=== PATIENT | female | born 1985 | race Hispanic/Latino ===

== ENCOUNTER 2022-06-04 16:06 | Emergency (ER) | payer SELFPAY ==
--- OUTSIDE RECORDS SUMMARY | 2022-06-04 16:11 | XMS REPORT | Continuity of Care Document ---
:1985 Author Organization [facility] t Address [address] [place] [address] Care Team Providers Name Role Phone Pcp, Patient Does Not Have A Primary Care Physician [id number] CARLOZ ESTRADA Attending Clinician Unavailable Paz Garcia Attending Clinician Carloz Jade Attending Clinician PAZ RODRIGUEZ Attending Clinician Unavailable Provider, Abel Temp Attending Clinician Unavailable Doctor Unassigned, [place] Attending Clinician Unavailable Lab, [facility] I Attending Clinician Unavailable Velma Akers Attending Clinician VELMA BAILEY Attending Clinician Unavailable Visit, Abel Nurse Attending Clinician Unavailable Sasha Carpentre Attending Clinician Payers Payer Name Policy Type Policy Number Effective Date Expiration Date S ource Problems Condition Condition Condition Status Onset Resolution Last Treating Co mments Source Name Details Category Date Date Treatment Clinician Date Elevated Elevated Disease Active Unive rs blood blood 5-19 ity of pressure pressure 00:00: [place] reading reading 00 Medical without without Branch diagnosis diagnosis of of hypertensi hypertensi on on Depo-Prove Depo-Prove Disease Active U nivers ra ra 5-14 [place] status ra[place] status 00 Me dical Branch Bacterial Bacterial Disease Active Uni vers vaginosis vaginosis 5-14 ity of 00:00: [place] [facility] Patient is Patient is Disease Active U nivers a a 3-20 [place] breast-fee breast-fee 00 Me dicsalazar chu Branch mother mother Encounter Encounter Disease Active Uni vers for for 3-20 ity of initial initial 00:00: [place] prescripti prescripti 00 Me dical on of on of Branch intrauteri intrauteri ne ne contracept contracept raul device raul device (IUD) (IUD) Patient is Patient is Disease Active 2018- U nivers a a 3-20 [place] breast-fee breast-fee 00 Me dical kimberley Strong mother mother Screening Screening Disease Active Uni vers examinatio examinatio 3-20 it y of n for STD n for STD [place] (sexually (sexually 00 Medi kelley transmitte transmitte Br anch d disease) d disease) Vaginal Vaginal Disease Active 2016-08 Univers irritation irritation 1-14 it y of 00:00: [place] [facility] Well woman Well woman Disease Active 2016-08 U nivers exam exam 1-14 ity of 00:00: [place] [facility] Encounter Encounter Disease Active 2016-08 Uni vers for for 1-14 it[place] of contrace[place]pt [place] raul 00 Medical management management Br anch , , unspecifie unspecifie d type d type Encounter Encounter Disease Active 2016-08 Uni vers for for 1-14 it[place] of contracept [place]pt [place] raul 00 Medical management management Br anch , , unspecifie unspecifie d type d type BMI BMI Disease Active Univers 26.0-26.9, 26.0-26.9, 9-25 it y of adult adult 00:00: [place] [facility] BMI BMI Disease Active Univers 26.0-26.9, 26.0-26.9, 9-25 it y of adult adult 00:00: [address] Obesity, Obesity, Disease Active Unive rs unspecifie unspecifie 8- it y of d d 00:00: [place] classifica classifica 00 Me dical tion, tion, Branch unspecifie unspecifie d obesity d obesity type, type, unspecifie unspecifie d whether d whether serious serious comorbidit comorbidit y present y present Encounter Encounter Disease Active Uni vers for for 02-10 ity of surveillan surveillan [place] ce of ce of Medical injectable injectable Br anch contracept contracept raul raul Allergies, Adverse Reactions, Alerts Allergy Allergy Status Severity Reaction(s) Onset Inactive Treating Comm ents Source Name Type Date Date Clinician NO KNOWN Drug Active Univers ALLERGIE Class ity of [facility] Social History Social Habit Start Date Stop Date Quantity Comments Source Exposure to 2022-05-11 2022-05-21 Not sure [facility] SARS-CoV-2 00:00:00 09:30:00 [facility] (event) [place] Alcohol intake 2022-05-21 2022-05-21 Ex-drinker [facility] 00:00:00 00:00:00 (finding) [facility] Tobacco use and 2014-06-12 2014-06-12 Smokeless tobacco Un iversity of exposure 00:00:00 00:00:00 non-user [facility] History of 2014-03-15 Cigarette [facility] use [facility]:00:00 [facility] Alcohol Comment 2013-03-22 2013-03-22 socially only Univer sity of 00:00:00 00:00:00 [facility] Sex [birth year] At [birth year] Universit y of 00:00:00 00:00:00 [facility] Smoking Status Start Date Stop Date Source Ex-smoker 2014-06-12 00:00:00 2014-06-12 00:00:00 [facility] Medications Ordered Filled Start Stop Current Ordering Indication Dosage Frequency Signature Comments Components Source Medication Medication Date Date Medication? Clinician (SIG) Name Name No known 2021-08 No No known Unive rs medications 0-07 medication it y of 12:04: [address] No known 2021-08 No No known Unive rs medications 0-07 medication it y of 12:04: [address] No known 2021-08 No No known Unive rs medications 0-07 medication it y of 12:04: [address] No known 2021-08 No No known Unive rs medications 0-07 medication it y of 12:04: s [place] [id number] Medical Branch No known 2021- No No known Unive rs medications 0-07 medication it y of 12:04: s [place] [id number] Medical Branch No known 2021-08 No No known Unive rs medications 0-07 medication it y of 12:04: s [place] [id number] Medical [place] No known No No known Unive rs medications 5-19 medication it y of 15:04: s [place] [id number] Medical Branch medroxyPROG 2020-0 2020- No [id number] 150mg Univers ESTERone 5-14 -15 ity of (DEPO-PROVE 15:00: 14:59 [place] RA) 00 :00 Medical injection Branch 150 mg medroxyPROG 2020-0 2020- No [id number] 150mg 150 mg, Univers ESTERone 5-14 -15 Intramuscu ity of (DEPO-PROVE 15:00: 14:59 lar, [place] RA) 00 :00 [id number], Medical injection 4 doses, Branch 150 mg First dose on Kristin 12/27/19 at 1000, Last dose on Kristin 09/04/20 at 1000, Routine medroxyPROG 2020-0 2020- No [id number] 150mg Univers ESTERone 5-14 -15 ity of (DEPO-PROVE 15:00: 14:59 [place] RA) 00 :00 Medical injection Branch 150 mg medroxyPROG 2020-0 2020- No [id number] 150mg 150 mg, Univers ESTERone 5-14 -15 Intramuscu ity of (DEPO-PROVE 15:00: 14:59 lar, [place] RA) 00 :00 [id number], Medical injection 4 doses, Branch 150 mg First dose on Kristin 12/27/19 at 1000, Last dose on Kristin 09/04/20 at 1000, Routine medroxyPROG 2020-0 2020- No [id number] 150mg Univers ESTERone 5-14 -15 ity of (DEPO-PROVE 15:00: 14:59 [place] RA) 00 :00 Medical injection Branch 150 mg medroxyPROG 2020-0 2020- No [id number] 150mg 150 mg, Univers ESTERone 5-14 -15 Intramuscu ity of (DEPO-PROVE 15:00: 14:59 lar, [place] RA) 00 :00 [id number], Medical injection 4 doses, Branch 150 mg First dose on Kristin 12/27/19 at 1000, Last dose on Kristin 09/04/20 at 1000, Routine medroxyPROG 2019-2020- No [id number] 150mg Univers ESTERone 12-26 ity of (DEPO-PROVE 15:00: 14:59 [place] RA) 00 :00 Medical injection Branch 150 mg medroxyPROG 2019-2020- No [id number] 150mg 150 mg, Univers ESTERone 12-26 Intramuscu ity of (DEPO-PROVE 15:00: 14:59 lar, [place] RA) 00 :00 [id number], Medical injection 4 doses, Branch 150 mg First dose on Kristin 12/27/19 at 1000, Last dose on Kristin 09/04/20 at 1000, Routine medroxyPROG 2019-2020- No [id number] 150mg Univers ESTERone 12-26 ity of (DEPO-PROVE 15:00: 14:59 [place] RA) 00 :00 Medical injection Branch 150 mg medroxyPROG No [id number] 150mg 150 mg, Univers ESTERone 12-26 Intramuscu ity of (DEPO-PROVE 15:00: 14:59 lar, [place] RA) 00 :00 [id number], Medical injection 4 doses, Branch 150 mg First dose on Kristin 12/27/19 at 1000, Last dose on Kristin 09/04/20 at 1000, Routine medroxyPROG 2019-2020- No [id number] 150mg Univers ESTERone 12-26 ity of (DEPO-PROVE 15:00: 19:16 [place] RA) 00 :00 Medical injection Branch 150 mg medroxyPROG No [id number] 150mg 150 mg, Univers ESTERone 12-26 Intramuscu ity of (DEPO-PROVE 15:00: 19:16 lar, [place] RA) 00 :00 [id number], Medical injection 4 doses, Branch 150 mg First dose on Kristin 12/27/19 at 1000, Last dose on Kristin 09/04/20 at 1000, Routine metroNIDAZO 2019- No [id number] 500mg Take 1 Univers LE 500 mg 5-14 05-22 tablet by ity of tablet 00:00: 04:59 mouth 2 [place] 00 :00 (two) Medical times [place] daily for 7 days. metroNIDAZO 2020-0 2020- No [id number] 500mg Take 1 Univers LE 500 mg 5-14 -22 tablet by ity of tablet 00:00: 04:59 mouth 2 [place] 00 :00 (two) Medical times [place] daily for 7 days. ondansetron 2019-0 2019- No 4mg 4 mg, Slow Univers (ZOFRAN 11-29 IV Push, ity of (PF)) 07:15: 06:14 ONCE, 1 [place] injection 4 00 :00 dose, Fri Med ical mg 11/30/19 at Branch 0215, MARYANN famotidine 2019-2019- No 20mg 20 mg, IV U nivers 20 mg in NS 11-29 Piggyback, i ty of 50 ml 07:15: 06:38 ONCE, 1 [place] (PEPCID) 20 00 :00 dose, Fri Med ical mg/50 mL 11/30/19 at [facility] h Piggyback 0215, 50 20 mg mL maalox:diph 2019-2019- No 15mL 15 mL, Uni vers enhydrAMINE 11-29 Oral ity of :lidocaine 06:00: 04:59 [place] 2 % viscous 00 :00 Swallow), Med ical 1:1:1 ONCE, 1 Branch (FIRST-MOUT dose, Fri HWASH BLM) 11/30/19 at oral 0100, suspension Routine 15 mL NaCl 0.9% 2020- No 1000mL at 999 Uni vers (NS) bolus 11-29 mL/hr, ity of infusion 05:15: 06:38 1,000 mL, [place] as 1,000 mL 00 :00 IV Medical Infusion, Branch ONCE, 1 dose, 11/30/19 at 0015, STAT morpHINE 2019-0 2019- No 4mg 4 mg, Slow Un thor injection 4 11-29 IV Push, ity of mg 05:15: 04:18 ONCE, 1 [place] 00 :00 dose, Fri Medical 11/30/19 at Branch 0015, Routine ondansetron 2019-0 2020- No 4mg 4 mg, Slow Univers (ZOFRAN 4-17 04-17 IV Push, ity of (PF)) 05:15: 04:18 ONCE, 1 [place] injection 4 00 :00 dose, Fri Med ical mg 11/30/19 at Branch 0015, MARYANN famotidine 2020-0 Yes [id number] 40mg Take 1 Un thor (PEPCID) 40 4-17 tablet by ity of mg tablet 00:00: mouth [place] 00 daily. Medical Branch ondansetron 2020-0 Yes [id number] 4mg Take 1 U nivers (ZOFRAN 4-17 tablet by ity of ODT) 4 mg 00:00: mouth [place] disintegrat 00 every 8 Medic al ing tablet (eight) Branch hours as needed for Nausea and Vomiting (N/V). famotidine 2020-0 2020- No [id number] 40mg Take 1 U nivers (PEPCID) 40 4-17 05-14 tablet by it y of mg tablet 00:00: 00:00 mouth [place] 00 :00 daily. Medical Branch ondansetron 2020-0 2020- No [id number] 4mg Take 1 Univers (ZOFRAN 4-17 05-14 tablet by ity of ODT) 4 mg 00:00: 00:00 mouth [place] disintegrat 00 :00 every 8 Medic al ing tablet (eight) Branch hours as needed for Nausea and Vomiting (N/V). famotidine 2020-0 2020- No [id number] 40mg Take 1 U nivers (PEPCID) 40 4-17 05-14 tablet by it y of mg tablet 00:00: 00:00 mouth [place] 00 :00 daily. Medical Branch ondansetron 2020-0 2020- No [id number] 4mg Take 1 Univers (ZOFRAN 4-17 05-14 tablet by ity of ODT) 4 mg 00:00: 00:00 mouth [place] disintegrat 00 :00 every 8 Medic al ing tablet (eight) Branch hours as needed for Nausea and Vomiting (N/V). medroxyPROG 2020-0 2020- No 150mg Univ ers ESTERone 10-03- ity of (DEPO-PROVE 17:30: 16:29 [place] RA) 00 :00 Medical injection Branch 150 mg medroxyPROG 2020-0 2020- No 150mg 150 mg, U nivers ESTERone 10-03 Intramuscu ity of (DEPO-PROVE 17:30: 16:29 lar, ONCE, [place] RA) 00 :00 1 dose, Medical injection Wed Branch 150 mg 10/03/19 at 1130, Routine medroxyPROG 2020- No [id number] 150mg Univers ESTERone 11-01 ity of (DEPO-PROVE 16:30: 17:29 [place] RA) 00 :00 Medical injection Branch 150 mg medroxyPROG 2018- 2020- No [id number] 150mg 150 mg, Univers ESTERone 11-01 Intramuscu ity of (DEPO-PROVE 16:30: 17:29 lar, [place] RA) 00 :00 [id number], Medical injection 4 doses, Branch 150 mg First dose on Tue11/01/18 at 1130, Last dose on Tue07/11/19 at 1130, Routine medroxyPROG 2018- 2020- No [id number] 150mg Univers ESTERone 11-01 ity of (DEPO-PROVE 16:30: 17:29 [place] RA) 00 :00 Medical injection Branch 150 mg medroxyPROG 2019- No [id number] 150mg 150 mg, Univers ESTERone 11-01 Intramuscu ity of (DEPO-PROVE 16:30: 17:29 lar, [place] RA) 00 :00 [id number], Medical injection 4 doses, Branch 150 mg First dose on Tue11/01/18 at 1130, Last dose on Tue07/11/19 at 1130, Routine No known No Univers medications ity of [facility] No known No Univers medications ity of [facility] No known No Univers medications ity of [facility] No known No Univers medications ity of [facility] Immunizations Ordered Filled Immunization Date Status Comments [facility] e Immunization Name Name Influenza Virus 2020-06-17 Completed Universit y of Vaccine Quad .5 mL 00:00:00 [place] Medical IM 6+ MO Branch Influenza Virus 2020-06-17 Completed Universit y of Vaccine Quad .5 mL 00:00:00 [place] Medical IM 6+ MO Branch Influenza Virus 2020-06-17 Completed Universit y of Vaccine Quad .5 mL 00:00:00 [place] Medical IM 6+ MO Branch Influenza Virus 2020-06-17 Completed Universit y of Vaccine Quad .5 mL 00:00:00 [facility] IM 6+ MO Branch Influenza Virus 2020-06-17 Completed Universit y of Vaccine Quad .5 mL 00:00:00 [place] Medical IM 6+ MO Branch Influenza Virus 2020-06-17 Completed Universit y of Vaccine Quad .5 mL 00:00:00 [place] Medical IM 6+ MO Branch Influenza Virus 2020-06-17 Completed Universit y of Vaccine Quad .5 mL 00:00:00 [place] Medical IM 6+ MO Branch Influenza Virus 2020-06-17 Completed Universit y of Vaccine Quad .5 mL 00:00:00 [place] Medical IM 6+ MO Branch Influenza Virus 2020-06-17 Completed Universit y of Vaccine Quad .5 mL 00:00:00 [place] Medical IM 6+ MO Branch Influenza Virus 2020-06-17 Completed Universit y of Vaccine Quad .5 mL 00:00:00 [place] Medical IM 6+ MO Branch Influenza Virus 2020-06-17 Completed Universit y of Vaccine Quad .5 mL 00:00:00 [place] Medical IM 6+ MO Branch Influenza Virus 2020-06-17 Completed Universit y of Vaccine Quad .5 mL 00:00:00 [place] Medical IM 6+ MO Branch Influenza Virus 2020-06-17 Completed Universit y of Vaccine Quad .5 mL 00:00:00 [place] Medical IM 6+ MO Branch Influenza Virus 2018-06-28 Completed Universit y of Vaccine Quad .5 mL 00:00:00 [place] [facility] IM 6+ MO Branch TDAP (ADACEL) 2018-06-28 Completed University of VACCINE 00:00:00 [facility] Influenza Virus 2018-06-28 Completed Universit y of Vaccine Quad .5 mL 00:00:00 [place] Medical IM 6+ MO Branch TDAP (ADACEL) 2018-06-28 Completed University of VACCINE 00:00:00 [place] [facility] [place] Influenza Virus 2018-06-28 Completed Universit y of Vaccine Quad .5 mL 00:00:00 [place] Medical IM 6+ MO Branch TDAP (ADACEL) 2018-06-28 Completed University of VACCINE 00:00:00 [place] [facility] Influenza Virus 2018-06-28 Completed Universit y of Vaccine Quad .5 mL 00:00:00 [place] [facility] IM 6+ MO Branch TDAP (ADACEL) 2018-06-28 Completed University of VACCINE 00:00:00 [place] [facility] [place] Influenza Virus 2018-06-28 Completed Universit y of Vaccine Quad .5 mL 00:00:00 [place] [facility] IM 6+ MO Branch TDAP (ADACEL) 2018-06-28 Completed University of VACCINE 00:00:00 [facility] Influenza Virus 2018-06-28 Completed Universit y of Vaccine Quad .5 mL 00:00:00 [place] [facility] IM 6+ MO Branch TDAP (ADACEL) 2018-06-28 Completed University of VACCINE 00:00:00 [facility] Influenza Virus 2018-06-28 Completed Universit y of Vaccine Quad .5 mL 00:00:00 [place] [facility] IM 6+ MO Branch TDAP (ADACEL) 2018-06-28 Completed University of VACCINE 00:00:00 [facility] Influenza Virus 2018-06-28 Completed Universit y of Vaccine Quad .5 mL 00:00:00 [place] [facility] IM 6+ MO Branch TDAP (ADACEL) 2018-06-28 Completed University of VACCINE 00:00:00 [facility] Influenza Virus 2018-06-28 Completed Universit y of Vaccine Quad .5 mL 00:00:00 [place] [facility] IM 6+ MO Branch TDAP (ADACEL) 2018-06-28 Completed University of VACCINE 00:00:00 [facility] Influenza Virus 2018-06-28 Completed Universit y of Vaccine Quad .5 mL 00:00:00 [place] [facility] IM 6+ MO Branch TDAP (ADACEL) 2018-06-28 Completed University of VACCINE 00:00:00 [facility] Influenza Virus 2018-06-28 Completed Universit y of Vaccine Quad .5 mL 00:00:00 [place] [facility] IM 6+ MO Branch TDAP (ADACEL) 2018-06-28 Completed University of VACCINE 00:00:00 [facility] Influenza Virus 2018-06-28 Completed Universit y of Vaccine Quad .5 mL 00:00:00 [place] [facility] IM 6+ MO Branch TDAP (ADACEL) 2018-06-28 Completed University of VACCINE 00:00:00 [facility] Influenza Virus 2018-06-28 Completed Universit y of Vaccine Quad .5 mL 00:00:00 [place] [facility] IM 6+ MO Branch TDAP (ADACEL) 2018-06-28 Completed University of VACCINE 00:00:00 [facility] Influenza Virus 2018-06-28 Completed Universit y of Vaccine Quad .5 mL 00:00:00 [place] [facility] IM 6+ MO Branch TDAP (ADACEL) 2018-06-28 Completed University of VACCINE 00:00:00 [facility] Influenza Virus 2018-06-28 Completed Universit y of Vaccine Quad .5 mL 00:00:00 [place] [facility] IM 6+ MO Branch TDAP (ADACEL) 2018-06-28 Completed University of VACCINE 00:00:00 [facility] Influenza Virus 2018-06-28 Completed Universit y of Vaccine Quad .5 mL 00:00:00 [place] [facility] IM 6+ MO Branch TDAP (ADACEL) 2018-06-28 Completed University of VACCINE 00:00:00 [facility] Influenza Virus 2018-06-28 Completed Universit y of Vaccine Quad .5 mL 00:00:00 [place] [facility] IM 6+ MO Branch TDAP (ADACEL) 2018-06-28 Completed University of VACCINE 00:00:00 [facility] Influenza Virus 2018-06-28 Completed Universit y of Vaccine Quad .5 mL 00:00:00 [place] [facility] IM 6+ MO Branch TDAP (ADACEL) 2018-06-28 Completed University of VACCINE 00:00:00 [facility] Influenza Virus 2018-06-28 Completed Universit y of Vaccine Quad .5 mL 00:00:00 [place] [facility] IM 6+ MO Branch TDAP (ADACEL) 2018-06-28 Completed University of VACCINE 00:00:00 [facility] Influenza Virus 2018-06-28 Completed Universit y of Vaccine Quad .5 mL 00:00:00 [place] [facility] IM 6+ MO Branch TDAP (ADACEL) 2018-06-28 Completed University of VACCINE 00:00:00 [facility] Influenza Virus 2018-06-28 Completed Universit y of Vaccine Quad .5 mL 00:00:00 [place] [facility] IM 6+ MO Branch TDAP (ADACEL) 2018-06-28 Completed University of VACCINE 00:00:00 [facility] Tdap 2017-03-01 Completed University of 00:00:00 [facility] Tdap 2017-03-01 Completed University of 00:00:00 [facility] Tdap 2017-03-01 Completed University of 00:00:00 [facility] Branch TDAP 2017-03-01 Completed University of 00:00:00 [facility] Branch TDAP 2017-03-01 Completed University of 00:00:00 [facility] Branch TDAP 2017-03-01 Completed University of 00:00:00 [facility] Branch TDAP 2017-03-01 Completed University of 00:00:00 [facility] Branch TDAP 2017-03-01 Completed University of 00:00:00 [place] [facility] TDAP 2017-03-01 Completed University of 00:00:00 [place] [facility] TDAP 2017-03-01 Completed University of 00:00:00 [place] [facility] TDAP 2017-03-01 Completed University of 00:00:00 [place] [facility] TDAP 2017-03-01 Completed University of 00:00:00 [place] [facility] TDAP 2017-03-01 Completed University of 00:00:00 [place] [facility] TDAP 2017-03-01 Completed University of 00:00:00 [place] [facility] TDAP 2017-03-01 Completed University of 00:00:00 [place] [facility] TDAP 2017-03-01 Completed University of 00:00:00 [place] [facility] TDAP 2017-03-01 Completed University of 00:00:00 [place] [facility] Tdap 2017-03-01 Completed University of 00:00:00 [place] [facility] TDAP 2017-03-01 Completed University of 00:00:00 [place] [facility] Tdap 2017-03-01 Completed University of 00:00:00 [place] [facility] Tdap 2017-03-01 Completed University of 00:00:00 [place] [facility] Tdap 2014-10-16 Completed University of 00:00:00 [place] [facility] Tdap 2014-10-16 Completed University of 00:00:00 [place] [facility] Tdap 2014-10-16 Completed University of 00:00:00 [place] [facility] TDAP 2014-10-16 Completed University of 00:00:00 [place] [facility] TDAP 2014-10-16 Completed University of 00:00:00 [place] [facility] TDAP 2014-10-16 Completed University of 00:00:00 [place] [facility] TDAP 2014-10-16 Completed University of 00:00:00 [place] [facility] TDAP 2014-10-16 Completed University of 00:00:00 [place] [facility] TDAP 2014-10-16 Completed University of 00:00:00 [place] [facility] TDAP 2014-10-16 Completed University of 00:00:00 [place] [facility] TDAP 2014-10-16 Completed University of 00:00:00 [place] [facility] TDAP 2014-10-16 Completed University of 00:00:00 [place] [facility] TDAP 2014-10-16 Completed University of 00:00:00 [place] [facility] TDAP 2014-10-16 Completed University of 00:00:00 [place] [facility] TDAP 2014-10-16 Completed University of 00:00:00 [place] [facility] TDAP 2014-10-16 Completed University of 00:00:00 [place] [facility] Tdap 2014-10-16 Completed University of 00:00:00 [place] [facility] TDAP 2014-10-16 Completed University of 00:00:00 [place] [facility] TDAP 2014-10-16 Completed University of 00:00:00 [facility] Branch Tdap 2014-10-16 Completed University of 00:00:00 [facility] Branch Tdap 2014-10-16 Completed University of 00:00:00 [facility] Influenza Virus 2014-06-19 Completed Universit y of Vaccine Quad IM 00:00:00 [place] Med ical Multi-dose 6+ MO Branch Influenza Virus 2014-06-19 Completed Universit y of Vaccine Quad IM 00:00:00 [place] Med ical Multi-dose 6+ MO Branch Influenza Virus 2014-06-19 Completed Universit y of Vaccine Quad IM 00:00:00 [place] Med ical Multi-dose 6+ MO Branch Influenza Virus 2014-06-19 Completed Universit y of Vaccine Quad IM 00:00:00 [place] Med ical Multi-dose 6+ MO Branch Influenza Virus 2014-06-19 Completed Universit y of Vaccine Quad IM 00:00:00 [place] Med ical Multi-dose 6+ MO Branch Influenza Virus 2014-06-19 Completed Universit y of Vaccine Quad IM 00:00:00 [place] Med ical Multi-dose 6+ MO Branch Influenza Virus 2014-06-19 Completed Universit y of Vaccine Quad IM 00:00:00 [place] Med ical Multi-dose 6+ MO Branch Influenza Virus 2014-06-19 Completed Universit y of Vaccine Quad IM 00:00:00 [place] Med ical Multi-dose 6+ MO Branch Influenza Virus 2014-06-19 Completed Universit y of Vaccine Quad IM 00:00:00 [place] Med ical Multi-dose 6+ MO Branch Influenza Virus 2014-06-19 Completed Universit y of Vaccine Quad IM 00:00:00 [place] Med ical Multi-dose 6+ MO Branch Influenza Virus 2014-06-19 Completed Universit y of Vaccine Quad IM 00:00:00 [place] Med ical Multi-dose 6+ MO Branch Influenza Virus 2014-06-19 Completed Universit y of Vaccine Quad IM 00:00:00 [place] Med ical Multi-dose 6+ MO Branch Influenza Virus 2014-06-19 Completed Universit y of Vaccine Quad IM 00:00:00 [place] Med ical Multi-dose 6+ MO Branch Influenza Virus 2014-06-19 Completed Universit y of Vaccine Quad IM 00:00:00 [place] Med ical Multi-dose 6+ MO Branch Influenza Virus 2014-06-19 Completed Universit y of Vaccine Quad IM 00:00:00 [place] Med ical Multi-dose 6+ MO Branch Influenza Virus 2014-06-19 Completed Universit y of Vaccine Quad IM 00:00:00 [place] Med ical Multi-dose 6+ MO Branch Influenza Virus 2014-06-19 Completed Universit y of Vaccine Quad IM 00:00:00 [place] Med ical Multi-dose 6+ MO Branch Influenza Virus 2014-06-19 Completed Universit y of Vaccine Quad IM 00:00:00 [place] Med ical Multi-dose 6+ MO Branch Influenza Virus 2014-06-19 Completed Universit y of Vaccine Quad IM 00:00:00 [place] Med ical Multi-dose 6+ MO Branch Influenza Virus 2014-06-19 Completed Universit y of Vaccine Quad IM 00:00:00 [place] Med ical Multi-dose 6+ MO Branch Influenza Virus 2014-06-19 Completed Universit y of Vaccine Quad IM 00:00:00 [place] Med ical Multi-dose 6+ MO Branch Tdap 2013-03-22 Completed University of 00:00:00 [facility] Tdap 2013-03-22 Completed University of 00:00:00 [facility] Tdap 2013-03-22 Completed University of 00:00:00 [facility] TDAP 2013-03-22 Completed University of 00:00:00 [facility] TDAP 2013-03-22 Completed University of 00:00:00 [facility] TDAP 2013-03-22 Completed University of 00:00:00 [facility] TDAP 2013-03-22 Completed University of 00:00:00 [facility] TDAP 2013-03-22 Completed University of 00:00:00 [facility] TDAP 2013-03-22 Completed University of 00:00:00 [facility] TDAP 2013-03-22 Completed University of 00:00:00 [facility] TDAP 2013-03-22 Completed University of 00:00:00 [facility] TDAP 2013-03-22 Completed University of 00:00:00 [facility] TDAP 2013-03-22 Completed University of 00:00:00 [facility] TDAP 2013-03-22 Completed University of 00:00:00 [facility] Tdap 2013-03-22 Completed University of 00:00:00 [facility] TDAP 2013-03-22 Completed University of 00:00:00 [facility] TDAP 2013-03-22 Completed University of 00:00:00 [facility] TDAP 2013-03-22 Completed University of 00:00:00 [facility] TDAP 2013-03-22 Completed University of 00:00:00 [facility] Tdap 2013-03-22 Completed University of 00:00:00 [facility] Tdap 2013-03-22 Completed University of 00:00:00 [facility] Rubella 2009-12-24 Completed University of 00:00:00 [facility] Rubella 2009-12-24 Completed University of 00:00:00 [facility] Rubella 2009-12-24 Completed University of 00:00:00 [facility] Rubella 2009-12-24 Completed University of 00:00:00 [facility] Rubella 2009-12-24 Completed University of 00:00:00 [facility] Rubella 2009-12-24 Completed University of 00:00:00 [facility] Rubella 2009-12-24 Completed University of 00:00:00 [facility] Rubella 2009-12-24 Completed University of 00:00:00 [facility] Rubella 2009-12-24 Completed University of 00:00:00 [facility] Rubella 2009-12-24 Completed University of 00:00:00 [facility] Rubella 2009-12-24 Completed University of 00:00:00 [facility] Rubella 2009-12-24 Completed University of 00:00:00 [facility] Rubella 2009-12-24 Completed University of 00:00:00 [facility] Rubella 2009-12-24 Completed University of 00:00:00 [facility] Rubella 2009-12-24 Completed University of 00:00:00 [facility] Rubella 2009-12-24 Completed University of 00:00:00 [facility] Rubella 2009-12-24 Completed University of 00:00:00 [facility] Rubella 2009-12-24 Completed University of 00:00:00 [facility] Rubella 2009-12-24 Completed University of 00:00:00 [facility] Rubella 2009-12-24 Completed University of 00:00:00 [facility] Rubella 2009-12-24 Completed University of 00:00:00 [facility] Vital Signs Vital Name Observation Time Observation Value Comments Source Systolic blood 2022-05-21 14:29:00 129 mm[Hg] Univer sity of pressure [facility] Diastolic blood 2022-05-21 14:29:00 76 mm[Hg] Unive rsity of pressure [facility] Heart rate 2022-05-21 14:29:00 67 /min Universi ty of [facility] Body temperature 2022-05-21 14:29:00 36.78 Ying Univ ersity of [facility] Respiratory rate 2022-05-21 14:29:00 20 /min Univ ersity of [facility] Body height 2022-05-21 14:29:00 170.2 cm Universi ty [facility] Body weight 2022-05-21 14:29:00 56.155 kg [facility]i [facility] BMI 2022-05-21 14:29:00 19.39 kg/m2 [facility] Systolic blood 2020-12-31 19:56:00 134 mm[Hg] Univer sity of pressure [facility] Diastolic blood 2020-12-31 19:56:00 94 mm[Hg] Unive rsity of pressure [facility] Heart rate 2020-12-31 19:55:00 63 /min Universi ty of [facility] Body temperature 2020-12-31 19:55:00 36.78 Ying Univ ersity of [facility] Respiratory rate 2020-12-31 19:55:00 16 /min Univ ersity of [facility] Body height 2020-12-31 19:55:00 170.2 cm Universi ty of [facility] Body weight 2020-12-31 19:55:00 58.106 kg Universi ty of [facility] BMI 2020-12-31 19:55:00 20.06 kg/m2 Universi ty [facility] Systolic blood 2020-09-09 19:08:00 120 mm[Hg] Univer sity of pressure [facility] Diastolic blood 2020-09-09 19:08:00 81 mm[Hg] Unive rsity of pressure [facility] Heart rate 2020-09-09 19:08:00 69 /min Universi ty of [facility] Body temperature 2020-09-09 19:08:00 36.67 Ying Univ ersity of [facility] Respiratory rate 2020-09-09 19:08:00 16 /min Univ ersity of [facility] Body height 2020-09-09 19:08:00 170.7 cm [facility]i [facility] Body weight 2020-09-09 19:08:00 57.561 kg [facility]i ty [facility] BMI 2020-09-09 19:08:00 19.76 kg/m2 [facility] Systolic blood 2020-06-17 15:56:00 124 mm[Hg] Univer sity of pressure [facility] Diastolic blood 2020-06-17 15:56:00 81 mm[Hg] Unive rsity of pressure [facility] Heart rate 2020-06-17 15:56:00 77 /min Universi ty of [facility] Body temperature 2020-06-17 15:56:00 36.5 Ying Univ ersity of [facility] Respiratory rate 2020-06-17 15:56:00 16 /min Univ ersity of [facility] Body height 2020-06-17 15:56:00 167.6 cm [facility]i [facility] Body weight 2020-06-17 15:56:00 58.287 kg [facility]i [facility] BMI 2020-06-17 15:56:00 20.74 kg/m2 [facility] Systolic blood 2020-03-20 14:17:00 126 mm[Hg] Univer sity of pressure [facility] Diastolic blood 2020-03-20 14:17:00 86 mm[Hg] Unive rsity of pressure [facility] Heart rate 2020-03-20 14:17:00 81 /min [facility]i ty [facility] Body temperature 2020-03-20 14:17:00 36.72 Ying Univ ersity [facility] Respiratory rate 2020-03-20 14:17:00 16 /min Univ ersity of [facility] Body height 2020-03-20 14:17:00 167.6 cm Universi ty [facility] Body weight 2020-03-20 14:17:00 58.378 kg Universi ty of [facility] BMI 2020-03-20 14:17:00 20.77 kg/m2 Universi ty of [facility] Systolic blood 2019-12-27 13:57:00 126 mm[Hg] Univer sity of pressure [facility] Diastolic blood 2019-12-27 13:57:00 86 mm[Hg] Unive rsity of pressure [facility] Heart rate 2019-12-27 13:57:00 72 /min Universi ty of [facility] Body temperature 2019-12-27 13:57:00 36.39 Ying Univ ersity of [facility] Respiratory rate 2019-12-27 13:57:00 16 /min Univ ersity of [facility] Body height 2019-12-27 13:57:00 161.3 cm Universi ty of [facility] Body weight 2019-12-27 13:57:00 59.932 kg Universi ty of [facility] BMI 2019-12-27 13:57:00 23.04 kg/m2 Universi ty of [facility] Systolic blood 2019-11-30 06:30:00 126 mm[Hg] Univer sity of pressure [facility] Diastolic blood 2019-11-30 06:30:00 87 mm[Hg] Unive rsity of pressure [facility] Heart rate 2019-11-30 06:30:00 65 /min Universi ty of [facility] Respiratory rate 2019-11-30 06:30:00 12 /min Univ ersity of [facility] Oxygen saturation in 2019-11-30 06:30:00 100 /min University of Arterial blood by [facility] Pulse oximetry Branch Body temperature 2019-11-30 04:02:00 36.78 Ying Univ ersity of [facility] Body height 2019-11-30 04:02:00 162.6 cm Universi ty of [facility] Body weight 2019-11-30 04:02:00 61.236 kg Universi ty of [facility] BMI 2019-11-30 04:02:00 23.17 kg/m2 Universi ty of [facility] Systolic blood 2019-10-03 16:27:00 126 mm[Hg] Univer sity of pressure [facility] Diastolic blood 2019-10-03 16:27:00 83 mm[Hg] Unive rsity of pressure [facility] Heart rate 2019-10-03 16:27:00 63 /min Universi ty of [facility] Body temperature 2019-10-03 16:27:00 36.17 Ying [facility] Respiratory rate 2019-10-03 16:27:00 18 /min [facility] Body height 2019-10-03 16:27:00 160 cm [facility] Body weight 2019-10-03 16:27:00 57.352 kg [facility] BMI 2019-10-03 16:27:00 22.40 kg/m2 [facility] Systolic blood 2019-04-18 15:26:00 111 mm[Hg] Univer sity of [facility] Diastolic blood 2019-04-18 15:26:00 72 mm[Hg] [facility] Heart rate 2019-04-18 15:26:00 98 /min [facility] Body temperature 2019-04-18 15:26:00 36.67 Ying [facility] Respiratory rate 2019-04-18 15:26:00 16 /min [facility] Body height 2019-04-18 15:26:00 160 cm [facility] Body weight 2019-04-18 15:26:00 55.566 kg [facility] BMI 2019-04-18 15:26:00 21.70 kg/m2 [facility] Procedures Procedure Date / Time Performing Clinician Source Performed ASSIGNMENT OF BENEFITS 2022-05-21 14:13:42 Doctor Unassigned, No [facility] Name [facility] HIV 1/2 AG-AB WITH 2020-12-31 21:01:00 Carloz Estrada [facility] REFLEX [facility] PAP SMEAR-LIQUID 2020-12-31 21:01:00 Carloz Estrada [facility] BASED-CP [facility] GALV ONLY - SYPHILIS 2020-12-31 21:01:00 Carloz Estrada [facility] IGG/IGM [facility] FLU VACC ([id number]), 2020-06-17 16:09:14 [facility], QUAD Medical Bran ch URINALYSIS 2019-11-30 05:08:00 Sasha García [place] [facility] POCT TEST 2019-11-30 05:08:00 Sasha García [facility] LIPASE 2019-11-30 04:15:00 Sasha García [facility] MAGNESIUM 2019-11-30 04:15:00 Sasha García [facility] COMP. METABOLIC PANEL 2019-11-30 04:15:00 Sasha García [facility] ([id number]) [facility] CBC WITH DIFFERENTIAL 2019-11-30 04:15:00 Sasha García [facility] EKG-12 LEAD 2019-11-30 04:14:04 Sasha García [facility] Encounters Start End Encounter Admission Attending Care Care Encounter Source Date/Time Date/Time Type Type Clinicians Facility Department ID 2021-06-11 Emergency [facility] [id number] Univers 18:15:16 [facility] 2022-08-23 2022-08-23 [facility] [id number] Univers 09:00:00 09:00:00 CARLOZ [facility] 2022-05-27 2022-05-27 [facility] 1.2.840.114 [id number] Univers 00:00:00 00:00:00 Management Paz Neil [employer] [id number] ity General acute hospital [id number] Edgar as MATERNAL [id number] [facility] & CHILD 110 [facility] 2022-05-27 2022-05-27 [facility] [id number] Univers 00:00:00 00:00:00 Carloz Coreas [employer] [id number] ity General acute hospital [id number] Edgar as MATERNAL [phone] Med [facility] & CHILD 107 [facility] 2022-05-21 2022-05-21 Outpatient PAZ SALAZAR [facility] [id number] Univers 09:30:00 10:35:50 PAZ RODRIGUEZ [facility] 2022-05-21 2022-05-21 Office Provider, Abel [facility] 1 .2.840.114 [id number] Univers 09:30:00 10:35:50 Visit Paz Rodriguez [employer] 350.1.13.10 ity of [facility] 4.2.7.2.686 Edgar as MATERNAL [id number] [facility] & CHILD [address] [place] [address] 2022-05-21 2022-05-21 Orders Doctor SOTERO 1.2.840.114 [id number] Univers 00:00:00 00:00:00 Only Unassigned, COLLIN 350.1.13.10 ity of [place] [facility] 4.2.7.2.686 Edgar as [id number] [address] 2021-03-04 2021-03-04 Laboratory Lab, [facility] Fam Pob I [facility] 1.2. 840.114 [id number] Univers 15:58:22 16:18:22 Only [facility] 350.1.13.10 ity [facility] 4.2.7.2.686 Edgar as Professio [phone] Md dical [facility] [address] 2021-03-04 2021-03-04 Outpatient Joss BAILEY [facility] [id number] Univers 16:00:00 16:00:00 VELMA [facility] 2020-12-31 2020-12-31 Office Natalie [facility] 1.2.840.114 [id number] Univers 13:43:57 15:58:41 Visit Carloz Coreas [employer] 350.1.13.10 ity of [facility] 4.2.7.2.686 Edgar as MATERNAL [phone] [facility] & [address] 2020-12-31 2020-12-31 Outpatient Joss ESTRADA [facility] [id number] Univers 13:45:00 13:45:00 CARLOZ kong [facility] 2020-12-10 2020-12-10 Outpatient Joss ESTRADA [facility] [id number] Univers 13:00:00 13:00:00 CARLOZ kong [facility] 2020-12-08 2020-12-08 Telephone Visit, [facility] 1.2.802.754 [id number] Univers 00:00:00 00:00:00 Ang-Rmchp [employer] 350.1.13.10 ity of Nurse REGIONAL 4.2.7.2.686 Edgar as MATERNAL [id number] [facility] & [address] 2020-12-05 2020-12-05 Outpatient R [facility] [id number] Univers 13:30:00 13:30:00 ity of [facility] 2020-12-02 2020-12-02 Outpatient R [facility] [id number] Univers 10:30:00 10:30:00 ity of [facility] 2020-09-09 2020-09-09 [facility] 1.2 .840.114 [id number] Univers 13:00:15 13:15:06 Visit Carloz Estrada R [employer] 350.1.13.10 ity of REGIONAL 4.2.7.2.686 Edgar as MATERNAL [id number] [facility] & CHILD [address] [place] [address] 2020-09-09 2020-09-09 Outpatient R [facility] [id number] Univers 13:00:00 13:00:00 ity of [facility] 2020-09-09 2020-09-09 Outpatient R [facility] [id number] Univers 09:00:00 09:00:00 ity of [facility] 2020-06-17 2020-06-17 Nurse Visit, Abel Nurse [facility] 1.2 .840.114 [id number] Univers 09:46:17 10:09:51 Visit Carloz Estrada R [employer] 350.1.13.10 ity of REGIONAL 4.2.7.2.686 Edgar as MATERNAL [id number] [facility] & [address] 2020-06-17 2020-06-17 Outpatient R [facility] [id number] Univers 09:00:00 09:00:00 ity of [facility] 2020-06-13 2020-06-13 Outpatient R [facility] [id number] Univers 09:00:00 09:00:00 ity of [facility] 2020-06-12 2020-06-12 Outpatient R [facility] [id number] Univers 09:00:00 09:00:00 ity of [facility] 2020-03-20 2020-03-20 Nurse Visit, Abel Nurse [facility] 1.2 .840.114 [id number] Univers 09:09:33 09:24:33 Visit Belkis Estradayeison R [employer] 350.1.13.10 ity of [facility] 4.2.7.2.686 Edgar as MATERNAL [id number] [facility] ical & CHILD [address] [place] [address] 2020-03-20 2020-03-20 Outpatient R [facility] [id number] Univers 09:00:00 09:00:00 ity of [facility] 2019-12-27 2019-12-27 Outpatient [facility] [id number] Univers 13:45:00 13:45:00 CARLOZ paz o f [facility] 2019-12-27 2019-12-27 Office [facility] 1.2.840.114 [id number] Univers 08:48:58 09:43:47 Visit Carloz Coreas [employer] 350.1.13.10 ity of [facility] 4.2.7.2.686 Edgar as MATERNAL [id number] [facility] & [address] 2019-12-27 2019-12-27 Outpatient [facility] [id number] Univers 08:45:00 08:45:00 CARLOZ paz o f [facility] 2019-11-29 2019-11-30 Emergency Ricky, Sasha [facility] 1.2.840.114 [id number] Univers 22:52:52 01:43:00 Delfina Haviland 350.1.13.10 i ty of [place] 4.2.7.2.686 [facility] [id number] [address] 2019-10-03 2019-10-03 Nurse Visit, Abel Nurse [facility] 1.2 .840.114 [id number] Univers 10:10:03 10:25:03 Visit EstradaCarloz [employer] 350.1.13.10 ity of [facility] 4.2.7.2.686 Edgar as MATERNAL [id number] Med ical & CHILD 107 [facility] 2019-04-18 2019-04-18 [facility] 1.2 .840.114 [id number] [facility] 10:18:19 10:18:31 Visit Carloz Estrada Joss [employer] [facility].1.13.10 [facility] 4.2.7.2.686 Edgar as MATERNAL [id number] [facility] [address] [place] [address] Results Test Description Test Time Test Comments Results Result Comments Source GALV ONLY - [place] IGG/IGM 2021-01-01 14:24:30 Test Item Value Reference Range Interpretation Comme nts Syphilis IgG/IgM (test code = Non-reactive Non-reactive 05110-3) ELLE (test code = ELLE) Non-reactive - No serologic evidence of T. pallidum infection. Cannot exclude incubating or early syphilis. Submit a second specimen in 2-4 weeks if syphilis is clinically suspected. Equivocal - Further testing to follow. Reactive - Further testing to follow. Lab Interpretation (test code = Normal 60132-1) [facility] ONLY - [place] [id number] 14:24:30 Test Item Value Reference Range Interpretation Comments Syphilis IgG/IgM (test Non-reactive Non-reactive code = 26154-8) ELLE (test code = ELLE) Non-reactive - No serologic evidence of T. pallidum infection. Cannot exclude incubating or early syphilis. Submit a second specimen in 2-4 weeks if syphilis is clinically suspected. Equivocal - Further testing to follow. Reactive - Further testing to follow. Lab Interpretation (test Normal code = 52272-7) [facility] 1/2 AG-AB WITH [id number] 05:02:24 Test Item Value Reference Range Interpretation Comments HIV Negative Negative Semi-quantitative (test code = 78647-3) ELLE (test code = Non-reactive for HIV-1 ELLE) antigen and HIV-1/HIV-2 antibodies. ?No laboratory evidence of HIV infection. ?Repeat in 2-4 weeks if acute HIV infection is suspected. [facility] 1/2 AG-AB WITH [id number] 05:02:24 Test Item Value Reference Range Interpretation Comments HIV Negative Negative Semi-quantitative (test code = 78763-4) ELLE (test code = Non-reactive for HIV-1 ELLE) antigen and HIV-1/HIV-2 antibodies. ?No laboratory evidence of HIV infection. ?Repeat in 2-4 weeks if acute HIV infection is suspected. [facility] Test Item Value Reference Range Interpretation Comments APPEARANCE (test code = Clear Clear 7363628281) COLOR (test code = Straw Yellow A 7118234329) PH (test code = 4.8-8.0 2937599588) SP GRAVITY (test code = 1.003-1.030 0848607927) GLU U QUAL (test code = Normal Normal 0046758966) BLOOD (test code = Negative Negative 1299507584) KETONES (test code = Negative Negative 0813709977) PROTEIN (test code = Negative Negative 2887-8) UROBILIN (test code = Normal Normal 2337253734) BILIRUBIN (test code = Negative Negative 4601580743) NITRITE (test code = Negative Negative 1407881412) LEUK LOU (test code = Negative Negative 3982558287) RBC/HPF (test code = See_Comment [Autom ated message] 7762288218) The system [employer] generated this result transmitted ref erence range: 0 - 3 HP F. The reference range was not used to int erpret this result as normal/abnormal . WBC/HPF (test code = See_Comment [Autom ated message] 3804001175) The system [employer] generated this result transmitted ref erence range: 0 - 5 HP F. The reference range was not used to int erpret this result as normal/abnormal . BACTERIA (test code = Few Negative A 5329207403) MUCOUS (test code = Slight Negative LPF A 0963703294) SQ EPITH (test code = HPF 5390898934) Lab Interpretation (test Abnormal code = 59901-6) [facility] [id number] 05:08:00 Test Item Value Reference Range Interpretation Comments POCT PREG (test code = 1605) negative On board controls acceptable with positive C Line (test code = 3574) POCT PREG LOT # (test code = 3575) [id number] POCT PREG TEST DATE (test 04-14-2021 code = 3576) Lab Interpretation (test code = Normal 70141-2) [facility] 04:32:00 Test Item Value Reference Range Interpretation Comments MAGNESIUM (test code = 1229305129) 2.0 mg/dL 1.7-2.4 Lab Interpretation (test code = Normal 81002-3) [facility] (73540)2019-11-30 04:31:00 Test Item Value Reference Range Interpretation Comments NA (test code = 141 mmol/L 135-145 1312397217) K (test code = 3.1 mmol/L 3.5-5 L 3819748241) CL (test code = 103 mmol/L 98-108 3549639054) CO2 TOTAL (test code = 25 mmol/L 23-31 9466453630) AGAP (test code = 2-16 4967397965) BUN (test code = 10 mg/dL 7-23 1175555350) GLUCOSE (test code = 147 mg/dL 70-110 H 2912547768) CREATININE (test code = 0.52 mg/dL 0.5-1.04 6624905511) TOTAL BILI (test code = 0.5 mg/dL 0.1-1.4 8573309655) CALCIUM (test code = 9.0 mg/dL 8.6-10.6 6954325758) T PROTEIN (test code = 8.2 g/dL 6.3-8.2 0909032477) ALBUMIN (test code = 5.0 g/dL 3.5-5 8333559150) ALK PHOS (test code = 104 U/L 34-122 8732104621) ALTv (test code = 27 U/L 5-35 1742-6) AST(SGOT) (test code = 38 U/L 13-40 6395631924) eGFR Calculation mL/min/1.73m2 (Non-) (test code = 9956207016) eGFR Calculation mL/min/1.73m2 () (test code = 1672948511) ELLE (test code = ELLE) Association of Glomerular Filtration Rate (GFR) and Staging of Kidney Disease* + --+ --+ ------+| GFR (mL/min/1.73 m2) ?| With Kidney Damage ?| ?Without Kidney Damage+ --------+ --------+ +| ?>90 ?| ?Stage one ?| ? Normal ?+ ---+ ---+ -------+| ?60-89 ?| ?Stage two ?| ? Decreased GFR ? + --+ --+ ------+| ?30-59 ?| ?Stage three ?| ? Stage three ? + --+ --+ ------+| ?15-29 ?| ?Stage four ? | ? Stage four ?+ ---+ ---+ -------+| ?<15 (or dialysis) ? ?| ?Stage five ? | ? Stage five ?+ ---+ ---+ -------+ *Each stage assumes the associated GFR level has been in effect for at least three months. ?Stages 1 to 5, with or without kidney disease, indicate chronic kidney disease. Notes: Determination of stages one and two (with eGFR >59mL/min/1.73 m2) requires estimation of kidney damage for at least three months as defined by structural or functional abnormalities of the kidney, manifested by either:Pathological abnormalities or Markers of kidney damage (including abnormalities in the composition of the blood or urine or abnormalities in imaging tests). Lab Interpretation Abnormal (test code = 86958-7) [facility] 04:31:00 Test Item Value Reference Range Interpretation Comments LIPASE (test code = 0441087770) 84 U/L 0-220 Lab Interpretation (test code = Normal 44113-5) [facility] WITH [id number] 04:20:00 Test Item Value Reference Range Interpretation Comments WBC (test code = See_Comment [Automated message] 6690-2) The system [employer] generated this result transmitted ref erence range: 4.30 - 1 1.10 10*3/?L. The re ference range was not u sed to interpret this result as normal/abnor mal. RBC (test code = See_Comment [Automated message] 789-8) The system [employer] generated this result transmitted ref erence range: 3.93 - 5 .25 10*6/?L. The re ference range was not u sed to interpret this result as normal/abnor mal. HGB (test code = 14.3 g/dL 11.6-15 718-7) HCT (test code = 41.2 % 35.7-45.2 4544-3) MCV (test code = 91.4 fL 80.6-95.5 787-2) MCH (test code = 31.7 pg 25.9-32.8 785-6) MCHC (test code = 34.7 g/dL 31.6-35.1 786-4) RDW-SD (test code 40.3 fL 39-49.9 = 92402-6) RDW-CV (test code 12.0 % 12-15.5 = 788-0) PLT (test code = See_Comment [Automated message] 777-3) The system hoohbeic h generated this result transmitted ref erence range: 166 - 35 8 10*3/?L. The re ference range was not u sed to interpret this result as normal/abnor mal. MPV (test code = 10.5 fL 9.5-12.9 00016-1) NRBC/100 WBC (test See_Comment [Automat ed message] code = 7250744862) The syste m which generated this result transmitted ref erence range: 0.0 - 10 .0 /100 WBCs. The refer ence range was not u sed to interpret this result as normal/abnor mal. NRBC x10^3 (test <0.01 See_Comment [Automated message] code = 1547279617) The syste m which generated this result transmitted ref erence range: 10*3/?L. The reference range was not used to interpr et this result as normal/abnormal . GRAN MAT (NEUT) % 57.7 % (test code = 770-8) IMM GRAN % (test 0.40 % code = 4024188358) LYMPH % (test code 36.8 % = 736-9) MONO % (test code 4.3 % = 5905-5) EOS % (test code = 0.5 % 713-8) BASO % (test code 0.3 % = 706-2) GRAN MAT 4.38 10*3/uL 1.88-7.09 x10^3(ANC) (test code = 9329606760) IMM GRAN x10^3 0.03 10*3/uL 0-0.06 (test code = 6947218361) LYMPH x10^3 (test 2.79 10*3/uL 1.32-3.29 code = 731-0) MONO x10^3 (test 0.33 10*3/uL 0.33-0.92 code = 742-7) EOS x10^3 (test 0.04 10*3/uL 0.03-0.39 code = 711-2) BASO x10^3 (test <0.03 0.01-0.07 code = 704-7) [facility]"
[2022-06-04 16:59] LABS: Absolute Lymphocytes (CBC) 0.8 K/uL (0.7-4.9); Hematocrit 41.7 % (36.0-45.0); Lymphocytes % 5.9 % (15.3-44.8); MCV 93.6 fL (80-100); MPV 8.4 fL (7.6-11.3); RBC Red Blood Cell Count 4.45 M/uL (3.86-4.86)
[2022-06-04 17:13] LABS: Albumin 3.8 g/dL (3.4-5.0); Potassium 4.8 mmol/L (3.5-5.1); Protein, Total 7.7 g/dL (6.4-8.2)
[2022-06-04] MEDS ORDERED: ONDANSETRON 4 MG/2 ML VIAL ONE ×2 (17:36→20:08)
[2022-06-04] MEDS ORDERED: NA CHLORIDE 0.9% 1,000 ML ONE (17:36)
[2022-06-04 17:46] LABS: Urine Blood Trace-intact (Negative); Urine Glucose Negative (Negative); Urine Protein Negative (Negative); Urine Specific Gravity 1.025 (1.005-1.030); Urine pH 6.5 (5.0-7.0)
[2022-06-04 17:50] LABS: Urine Specific Gravity/Preg 1.025 (1.005-1.030)
[2022-06-04 18:29] LABS: Blood Morphology Comment NOT SEEN (NOT SEEN); Platelet Estimate ADEQ
--- NOTE | 2022-06-04 19:29 | RAD REPORT ---
EXAM DESCRIPTION: CT - Abdomen Pelvis W Contrast - 06/04/2022 7:06 pm CLINICAL HISTORY: abd pain COMPARISON: CT ABD PELVIS W CONTRAST dated 01/30/2015 TECHNIQUE: Biphasic, helical CT imaging of the abdomen and pelvis was performed following 100 ml non -ionic IV contrast. No oral contrast was administered. All CT scans are performed using dose optimization technique as appropriate and may include automated exposure control or mA/KV adjustment according to patient size. FINDINGS: No suspicious findings in the lung bases. Liver size is normal. A 20 millimeter homogeneous cyst is present in the anterior midline liver. In t he posterosuperior right lobe a 3.5 centimeter low-density mass is present. Margins are not sharply d emarcated. On venous phase imaging there appears to be a discontinuous peripheral nodular enhancement pattern typically seen with hemangioma. The liver cyst has enlarged since 2014. The suspected ash ioma is new from the comparison. Non hemangioma etiology is possible. Follow-up outpatient liver sono graphy may be helpful for further characterisation. Spleen and pancreas show no suspicious findings. Cholecystectomy clips are present. No abnormal bilia ry tree dilatation. Symmetric renal function is seen with no hydronephrosis or suspicious renal mass. No pyelonephritis o r acute parenchymal process. No bladder abnormalities. No adrenal abnormalities. No uterine abnormali ty seen. Bilateral small ovarian cysts are present. No cyst rupture or hemorrhage findings. Trace racheal e fluid in the cul de sac is well within physiologic limits. No dilated bowel loops or bowel wall thickening. No suspicion for appendicitis. No free air, free flu id or inflammatory stranding. No hernia, mass or bulky lymphadenopathy. No suspicious bony findings. IMPRESSION: Contrast enhanced CT abdomen and pelvis showing no acute or emergent finding. A 3.5 centimeter low-density mass posterior right lobe is probably a hemangioma but is new from 2014. No acute hemorrhage or other findings to indicate an acute liver parenchymal process. Follow-up hepa tic sonography as an outpatient can be performed for further characterization. Alternatively, a dedic ated contrast MRI examination using hemangioma protocol could be obtained. Status post cholecystectomy with no abnormal biliary tree dilatation.
[2022-06-04] MEDS ORDERED: MORPHINE 4 MG/ML SYR ONE (20:08)
--- NOTE | 2022-06-04 21:02 | EDPHYS ---
Physician Documentation [facility] Name: Leslie Melgoza Age: 36 yrs Sex: Female : 1985 Arrival Date: 06/04/2022 Time: 16:12 Bed 18 Private MD: ED Physician Maxwell Tovar HPI: 06/04 17:29 This 36 yrs old Female presents to ER via EMS with complaints of abd pain. kb 17:29 The patient presents with abdominal pain. Onset: The symptoms/episode began/occurred kb this morning. The symptoms do not radiate. Associated signs and symptoms: Pertinent positives: diarrhea, Pertinent negatives: nausea and vomiting, fever. The symptoms are described as constant. Modifying factors: The symptoms are alleviated by nothing, the symptoms are aggravated by nothing. Severity of pain: At its worst the pain was moderate in the emergency department the pain is unchanged. The patient has not experienced similar symptoms in the past. The patient has not recently seen a physician. Pt reports pain to middle of abd and diarrhea that started today. Denies n/v or fever. Historical: - Allergies: 16:27 No Known Allergies; mb8 - Social history:: Smoking status: Patient denies any tobacco usage or history of. ROS: 17:28 Constitutional: Negative for fever, chills, and weight loss. kb 17:28 Abdomen/GI: Positive for abdominal pain, diarrhea, Negative for nausea and vomiting. 17:28 All other systems are negative. Exam: 17:28 Constitutional: This is a well developed, well nourished patient who is awake, alert, kb and in no acute distress. Head/Face: Normocephalic, atraumatic. ENT: Moist Mucous membranes Cardiovascular: Regular rate and rhythm with a normal S1 and S2. No gallops, murmurs, or rubs. No pulse deficits. Respiratory: Respirations even and unlabored. No increased work of breathing. Talking in full sentences Abdomen/GI: Soft, non-tender. No distention Skin: Warm, dry with normal turgor. Normal color. MS/ Extremity: Pulses equal, no cyanosis. Neurovascular intact. Full, normal range of motion. Neuro: Awake and alert, GCS 15, oriented to person, place, time, and situation. Moves all extremities. Normal gait. Vital Signs: 16:24 BP 123 / 66; Pulse 66; Resp 20; Temp 97.5; Pulse Ox 100% on R/A; Weight 55.5 kg; Height mb8 5 ft. 6 in. (167.64 cm); Pain 10/10; 17:46 BP 111 / 64; Pulse 70; Resp 16; Pulse Ox 100% ; Pain 0/10; mb8 18:18 BP 123 / 80; Pulse 74; Resp 14; Pulse Ox 99% ; Pain 0/10; mb8 20:15 BP 113 / 70; Pulse 75; Resp 15; Pulse Ox 100% on R/A; lg3 16:24 Body Mass Index 19.75 (55.50 kg, 167.64 cm) mb8 MDM: 16:30 Patient medically screened. kb 17:28 Data reviewed: vital signs, nurses notes. Data interpreted: Pulse oximetry: on room air kb is 100 %. Interpretation: normal. 20:59 Counseling: I had a detailed discussion with the patient and/or guardian regarding: the kb historical points, exam findings, and any diagnostic results supporting the discharge/admit diagnosis, lab results, radiology results, the need for outpatient follow up, a family practitioner, a technician support association, to return to the emergency department if symptoms worsen or persist or if there are any questions or concerns that arise at home. 06/04 16:35 Order name: CBC with Diff; Complete Time: 18:33 kb 06/04 16:35 Order name: CMP; Complete Time: 17:14 kb 06/04 16:35 Order name: Lipase; Complete Time: 17:14 kb 06/04 17:46 Order name: Urine Dipstick-Ancillary; Complete Time: 17:59 EDMS 06/04 17:47 Order name: Urine --Ancillary (enter results); Complete Time: 17:59 eb 06/04 18:29 Order name: Manual Differential; Complete Time: 18:33 EDMS 06/04 16:35 Order name: CT Abd/Pelvis - IV Contrast Only; Complete Time: 19:33 kb 06/04 16:35 Order name: IV Saline Lock; Complete Time: 16:52 kb 06/04 16:35 Order name: Labs collected and sent; Complete Time: 16:52 kb 06/04 16:35 Order name: Urine Dipstick-Ancillary (obtain specimen); Complete Time: 17:45 kb Administered Medications: 17:45 Not Given (Patient denies pain at this timem): morphine 4 mg IVP once over 4 mins mb8 17:45 Not Given (Patient not nauseouss): Zofran (Ondansetron) 4 mg IVP once; over 2 minutes mb8 17:45 Drug: NS 0.9% 1000 ml Route: IV; Rate: 1000 ml; Site: left antecubital; mb8 20:05 Follow up: Response: No adverse reaction; IV Status: Completed infusion; IV Intake: lg3 1000ml 20:12 Drug: morphine 4 mg Route: IVP; Infused Over: 4 mins; Site: left antecubital; lg3 21:09 Follow up: Response: No adverse reaction; Marked relief of symptoms; Pain is decreased lg3 20:12 Drug: Zofran (Ondansetron) 4 mg Route: IVP; Site: left antecubital; lg3 21:09 Follow up: Response: No adverse reaction lg3 Disposition Summary: 06/04/22 21:01 Discharge Ordered Location: Home kb Condition: Stable kb Diagnosis - Upper abdominal pain, unspecified kb - Abnormal results of liver function studies kb Followup: kb - With: Emergency Department - When: As needed - Reason: Worsening of condition Followup: kb - With: Private Physician - When: 2 - 3 days - Reason: Recheck today's complaints, Continuance of care, Re-evaluation by your physician Discharge Instructions: - Discharge Summary Sheet kb - Abdominal Pain, Adult, [id number] kb Forms: - Medication Reconciliation Form kb - Thank You Letter kb - Antibiotic Education kb - Prescription Opioid Use kb - Work release form lg3 Prescriptions: - Zofran 4 mg Oral Tablet - take 1 tablet by ORAL route every 6 hours As needed; 20 tablet; Refills: 0, kb Product Selection Permitted - dicyclomine 20 mg Oral Tablet - take 1 tablet by ORAL route 4 times per day As needed; 20 tablet; Refills: 0, kb Product Selection Permitted Addendum: 06/08/2022 04:13 Co-signature as Attending Physician, Maxwell Tovar MD I agree with the assessment and c murillo plan of care. Signatures: Dispatcher [employer] Delilah Silva, JELENA-C ROLL CLAMP OPERATOR-Maxwell Fraire MD MD cha Gibson, Lacie, RN RN lg3 Hong Yang RN RN mb8 Corrections: (The following items were deleted from the chart) 06/04 20:08 20:01 Abdomen [email or web address] ordered. EDMS EDMS
--- NOTE | 2022-06-04 21:02 | ER ---
Nurse's Notes [facility] Name: Leslie Melgoza Age: 36 yrs Sex: Female : 1985 Arrival Date: 06/04/2022 Time: 16:12 Bed 18 Private MD: Diagnosis: Upper abdominal pain, unspecified;Abnormal results of liver function studies Presentation: 06/04 16:24 Chief complaint: Patient states: RUQ abdominal pain that started this morning. Diarrhea mb8 since yesterday. No nausea or vomting. Coronavirus screen: Vaccine status: Patient reports being unvaccinated. Ebola Screen: Patient negative for fever greater than or equal to 101.5 degrees Fahrenheit, and additional compatible Ebola Virus Disease symptoms Patient denies exposure to infectious person. Patient denies travel to an Ebola-affected area in the 21 days before illness onset. Initial Sepsis Screen: Does the patient meet any 2 criteria? No. Patient's initial sepsis screen is negative. Does the patient have a suspected source of infection? No. Patient's initial sepsis screen is negative. Risk Assessment: Do you want to hurt yourself or someone else? Patient reports no desire to harm self or others. Onset of symptoms was June 04, 2022. 16:24 Method Of Arrival: EMS: [facility] 16:24 Acuity: WESLEY 3 mb8 Triage Assessment: 16:28 General: Appears uncomfortable, Behavior is cooperative, appropriate for age, restless. mb8 Pain: Complains of pain in right upper quadrant Pain does not radiate. Pain currently is 10 out of 10 on a pain scale. Quality of pain is described as sharp, Pain began this morning. Historical: - Allergies: 16:27 No Known Allergies; mb8 - Social history:: Smoking status: Patient denies any tobacco usage or history of. Screenin:29 Abuse screen: Denies threats or abuse. Denies injuries from another. Nutritional mb8 screening: No deficits noted. Tuberculosis screening: No symptoms or risk factors identified. Fall Risk None identified. Assessment: 16:29 GI: Abdomen is flat, non-distended, Bowel sounds Abd is soft X 4 quads Abdomen is mb8 tender to palpation in right upper quadrant Reports upper abdominal pain, diarrhea, Patient currently denies bloody stool, nausea, vomiting. : No deficits noted. 17:46 Reassessment: Patient and/or family updated on plan of care and expected duration. Pain mb8 level reassessed. Patient is alert, oriented x 3, equal unlabored respirations, skin warm/dry/pink. Patient denies pain at this time. Patient states feeling better. Patient states symptoms have improved. 18:19 Reassessment: Patient and/or family updated on plan of care and expected duration. Pain mb8 level reassessed. Patient is alert, oriented x 3, equal unlabored respirations, skin warm/dry/pink. 20:13 General: Appears in no apparent distress. uncomfortable, Behavior is calm, cooperative. lg3 Pain: Complains of pain in right upper quadrant Pain does not radiate. Noted to be grimacing, guarding, resistant to movement. Neuro: No deficits noted. Level of Consciousness is awake, alert, obeys commands, Oriented to person, place, time, situation. Cardiovascular: No deficits noted. Denies chest pain, shortness of breath, Capillary refill < 3 seconds Clubbing of nail beds is absent JVD is absent Patient's skin is warm and dry. Respiratory: No deficits noted. Airway is patent Trachea midline Respiratory effort is even, unlabored, Respiratory pattern is regular, symmetrical, Breath sounds are clear bilaterally. GI: Abdomen is flat, non-distended, Bowel sounds present X 4 quads. Abd is soft X 4 quads Abdomen is tender to palpation in right upper quadrant Guarding noted Reports upper abdominal pain. : No deficits noted. No signs and/or symptoms were reported regarding the genitourinary system. EENT: No deficits noted. No signs and/or symptoms were reported regarding the EENT system. Derm: No deficits noted. No signs and/or symptoms reported regarding the dermatologic system. Skin is intact, is healthy with good turgor, Skin is dry, Skin is normal, Skin temperature is warm. Musculoskeletal: No deficits noted. No signs and/or symptoms reported regarding the musculoskeletal system. Circulation, motion, and sensation intact. Range of motion: intact in all extremities. 21:09 Reassessment: Patient appears in no apparent distress at this time. No changes from lg3 previously documented assessment. Patient and/or family updated on plan of care and expected duration. Pain level reassessed. Patient is alert, oriented x 3, equal unlabored respirations, skin warm/dry/pink. Vital Signs: 16:24 BP 123 / 66; Pulse 66; Resp 20; Temp 97.5; Pulse Ox 100% on R/A; Weight 55.5 kg; Height mb8 5 ft. 6 in. (167.64 cm); Pain 10/10; 17:46 BP 111 / 64; Pulse 70; Resp 16; Pulse Ox 100% ; Pain 0/10; mb8 18:18 BP 123 / 80; Pulse 74; Resp 14; Pulse Ox 99% ; Pain 0/10; mb8 20:15 BP 113 / 70; Pulse 75; Resp 15; Pulse Ox 100% on R/A; lg3 16:24 Body Mass Index 19.75 (55.50 kg, 167.64 cm) mb8 ED Course: 16:12 Patient arrived in ED. am2 16:18 Hong Yang, RN is Primary Nurse. mb8 16:27 Triage completed. mb8 16:28 Arm band placed on. mb8 16:29 Delilah Rodgers FNP-C is PHCP. kb 16:29 Patient has correct armband on for positive identification. Placed in gown. Bed in low mb8 position. Call light in reach. Side rails up X2. Client placed on continuous cardiac and pulse oximetry monitoring. NIBP monitoring applied. 16:30 Maxwell Tovar MD is Attending Physician. kb 16:30 No provider procedures requiring assistance completed. Inserted saline lock: 18 gauge mb8 in left antecubital area, using aseptic technique. ,using aseptic technique. EMS field site. 19:08 CT Abd/Pelvis - IV Contrast Only In Process Unspecified. EDMS 20:13 Client placed on continuous cardiac and pulse oximetry monitoring. NIBP monitoring lg3 applied. case monitor on. Door closed. Noise minimized. Warm blanket given. 21:17 IV discontinued, intact, bleeding controlled, No redness/swelling at site. Pressure lg3 dressing applied. Administered Medications: 17:45 Not Given (Patient denies pain at this timem): morphine 4 mg IVP once over 4 mins mb8 17:45 Not Given (Patient not nauseouss): Zofran (Ondansetron) 4 mg IVP once; over 2 minutes mb8 17:45 Drug: NS 0.9% 1000 ml Route: IV; Rate: 1000 ml; Site: left antecubital; mb8 20:05 Follow up: Response: No adverse reaction; IV Status: Completed infusion; IV Intake: lg3 1000ml 20:12 Drug: morphine 4 mg Route: IVP; Infused Over: 4 mins; Site: left antecubital; lg3 21:09 Follow up: Response: No adverse reaction; Marked relief of symptoms; Pain is decreased lg3 20:12 Drug: Zofran (Ondansetron) 4 mg Route: IVP; Site: left antecubital; lg3 21:09 Follow up: Response: No adverse reaction lg3 Medication: 16:29 VIS not applicable for this client. mb8 Intake: 20:05 IV: 1000ml; Total: 1000ml. lg3 Outcome: 21:01 Discharge ordered by . fitz 21:17 Discharged to home ambulatory. lg3 21:17 Condition: stable 21:17 Discharge instructions given to patient, Instructed on discharge instructions, follow up and referral plans. medication usage, Demonstrated understanding of instructions, follow-up care, medications, Prescriptions given X 2. 21:18 Patient left the ED. lg3 Signatures: Dispatcher [employer] EDMS Delilah Rodgers, PROJECT MANAGER ENTERTAINMENT AND MEDIA-C PROJECT MANAGER ENTERTAINMENT AND MEDIA-CkKatie Choi am2 Kerry Card, RN RN lg3 Hong Yang, RN RN mb8
[2022-06-04 23:10] VITALS: TEMP 97.5
[2022-06-04 23:14] VITALS: BP 113/70; O2SAT 100
== END 2022-06-04 21:18 | disposition home or self-care (01) ==
LOC: ER 16:06
DX: R10.10 Upper abdominal pain, unspecified (principal); R94.5 Abnormal results of liver function studies
CPT/HCPCS: 36415; 74177; 80053; 81003; 81025; 83690; 85025; 96361; 96374; 96375; 99284; J2405; J7030; Q9967

== ENCOUNTER → 2023-08-21 | Emergency (ER) | payer SELFPAY ==
[~2023-08-21] MED LIST: ACETAMINOPHEN 325 MG TABLET ONE
--- OUTSIDE RECORDS SUMMARY | 2023-08-21 12:06 | XMS REPORT | Continuity of Care Document ---
Author Name Unknown Address [address] [facility] [place] [address] [facility] Address [address] [facility] [place] [address] Care Team Providers Care Geophysical Prospecting Permit Agent Name Role Phone Cecilia Thibodeaux Primary Care Physicia n MARYBETH MENA Attending Clinician UnavailCecilia Perez Attending Clinician + CECILIA MONTALVO Attending Clinician Unavail able Doctor Unassigned, [place] Attending Clinician U navailable Visit, Abel Nurse Attending Clinician Unava ilMarybeth Lucas CNM Attending Clinician [phone] Carloz Jade Attending Clinician + [phone] CARLOZ ESTRADA Attending Clinician UnavailPaz Dickerson Attending Clinician + [phone] PAZ RODRIGUEZ Attending Clinician Unavailjody e Provider, Abel Temp Attending Clinician Belkys theodore Bang, Sasha Fam Pob I Attending Clinician UnavailVelma Moct[place] Attending Clinician [phone] VELMA BAILEY Attending Clinician Unavailable Sasha Carpenter Attending Clinician [phone] Payers Payer Name Policy Type Policy Number Effective Date Expirati on Date Source Problems Condition Name Condition Details Condition Category Status Onset Date Resolution Date Last Treatment Date Treating Clinician Comments Source Other general counseling and advice for contracept raul management Other general counseling and advice for contracept raul management Disease Active 2022-08 0-21 00:00: 00 [facility] Elevated blood pressure reading without diagnosis of hypertensi on Elevated blood pressure reading without diagnosis of hypertensi on Disease Active 5-19 00:00: 00 [facility] Depo-Prove ra contracept raul status Depo-Prove ra contracept raul status Disease Active 12-26 00:00: 00 [facility] Bacterial vaginosis Bacterial vaginosis Disease Active 12-26 00:00: 00 [facility] 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 Disease Active 11-01 00:00: 00 [facility] Encounter for initial prescripti on of intrauteri ne contracept raul device (IUD) Encounter for initial prescripti on of intrauteri ne contracept raul device (IUD) Disease Active 11-01 00:00: 00 [facility] 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 Disease Active 11-01 00:00: 00 [facility] Screening examinatio n for STD (sexually transmitte d disease) Screening examinatio n for STD (sexually transmitte d disease) Disease Active 11-01 00:00: 00 [facility] Vaginal irritation Vaginal irritation Disease Active 2016-08 00:00: 00 [facility] Well woman exam Well woman exam Disease Active 2016-08 00:00: 00 [facility] Encounter for contracept raul management , unspecifie d type Encounter for contracept raul management , unspecifie d type Disease Active 2016-08 00:00: 00 [facility] Well woman exam Well woman exam Disease Active 2016-08 00:00: 00 [facility] BMI 26.0-26.9, adult BMI 26.0-26.9, adult Disease Active 9 00:00: 00 [facility] BMI 26.0-26.9, adult BMI 26.0-26.9, adult Disease Active 05-09 00:00: 00 [facility] Obesity, unspecifie d classifica tion, unspecifie d obesity type, unspecifie d whether serious comorbidit y present Obesity, unspecifie d classifica tion, unspecifie d obesity type, unspecifie d whether serious comorbidit y present Disease Active 03-15 00:00: 00 [facility] Encounter for surveillan ce of injectable contracept raul Encounter for surveillan ce of injectable contracept raul Disease Active 02-10 00:00: 00 [facility] Allergies, Adverse Reactions, Alerts Allergy Name Allergy Type Status Severity Reaction(s) Onset Date Inactive Date Treating Clinician Comments Source NO KNOWN ALLERGIE S Drug Class Active [facility] Social History Social Habit Start Date Stop Date Quantity Comments Source Sexual orientation [facility] Alcohol intake 2023-06-04 00:00:00 2023-06-04 00:00:00 Ex-drinker (finding) [facility] History of Social function 2023-06-04 00:00:00 2023-06-04 00:00:00 [facility] Exposure to SARS-CoV-2 (event) 2022-12-19 00:00:00 2022-12-29 15:09:00 Not sure [facility] Tobacco use and exposure 2022-08-23 00:00:00 2022-08-23 00:00:00 Smokeless tobacco non-user [facility] History of tobacco use 2014-03-15 00:00:00 Cigarette Smoker [facility] Alcohol Comment 2013-03-22 00:00:00 2013-03-22 00:00:00 socially only [facility] Sex Assigned At 1985 00:00:00 1985 00:00:00 [facility] Smoking Status Start Date Stop Date Source Ex-smoker 2022-08-23 00:00:00 2022-08-23 00:00:00 [facility] Medications Ordered Medication Name Filled Medication Name Start Date Stop Date Current Medication? Ordering Clinician Indication Dosage Frequency Signature (SIG) Comments Components Source medroxyPROG ESTERone (DEPO-PROVE RA) syringe 150 mg 09-06 18:30: 00 05-16 17:29 :00 No [id number] [address] [facility] medroxyPROG ESTERone (DEPO-PROVE RA) syringe 150 mg 09-06 18:30: 00 05-16 17:29 :00 No [id number] 150mg 150 mg, Intramuscu lar, [id number], 3 doses, First dose on Tue09/06/22 at 1230, Last dose on Tue02/21/23 at 1230, Routine [facility] medroxyPROG ESTERone (DEPO-PROVE RA) syringe 150 mg 09-06 18:30: 00 05-16 17:29 :00 No [id number] 150mg Un[facility] medroxyPROG ESTERone (DEPO-PROVE RA) syringe 150 mg 09-06 18:30: 00 05-16 17:29 :00 No [id number] 150mg 150 mg, Intramuscu lar, [id number], 3 doses, First dose on Tue09/06/22 at 1230, Last dose on Tue02/21/23 at 1230, Routine [facility] medroxyPROG ESTERone (DEPO-PROVE RA) syringe 150 mg 09-06 18:30: 00 05-16 17:29 :00 [facility] [id number] [facility] No known medications 08-23 09:50: 35 No No known medication s [facility] No known medications 08-23 09:50: 35 No No known medication [facility] No known medications 2021-08 12:04: 43 No No known medication [facility] No known medications 2021-08 12:04: 43 No No known medication s [facility] No known medications 2021-08 12:04: 43 No No known medication s [facility] No known medications 2021-08 0- 12:04: 43 No No known medication s [facility] No known medications 2021-08 0 12:04: 43 No No known medication s [facility] No known medications 2021-08 0 12:04: 43 No No known medication s [facility] No known medications 12-31 15:04: 49 No No known medication s [facility] medroxyPROG ESTERone (DEPO-PROVE RA) injection 150 mg 2020-0 5-14 15:00: 00 11-27 14:59 :00 No [id number] [facility] medroxyPROG ESTERone (DEPO-PROVE RA) injection 150 mg 2020-0 5-14 15:00: 00 11-27 14:59 :00 No [id number] 150mg 150 mg, Intramuscu lar, [id number], 4 doses, First dose on Kristin 12/27/19 at 1000, Last dose on Kristin 09/04/20 at 1000, Routine [facility] medroxyPROG ESTERone (DEPO-PROVE RA) injection 150 mg 2020-0 5-14 15:00: 00 11-27 14:59 :00 No [id number] [facility] medroxyPROG ESTERone (DEPO-PROVE RA) injection 150 mg 2020-0 5-14 15:00: 00 11-27 14:59 :00 No [id number] 150mg 150 mg, Intramuscu lar, [id number], 4 doses, First dose on Kristin 12/27/19 at 1000, Last dose on Kristin 09/04/20 at 1000, Routine [facility] medroxyPROG ESTERone (DEPO-PROVE RA) injection 150 mg 2020-0 5-14 15:00: 00 11-27 14:59 :00 No [id number] 150mg Univer s ity [facility] medroxyPROG ESTERone (DEPO-PROVE RA) injection 150 mg 2020-0 5-14 15:00: 00 11-27 14:59 :00 No [id number] 150mg 150 mg, Intramuscu lar, [id number], 4 doses, First dose on Kristin 12/27/19 at 1000, Last dose on Kristin 09/04/20 at 1000, Routine [facility] medroxyPROG ESTERone (DEPO-PROVE RA) injection 150 mg 2020-0 5-14 15:00: 00 11-27 14:59 :00 No [id number] [facility] (DEPO-PROVE RA) injection 150 mg 2020-0 5-14 15:00: 00 11-27 14:59 :00 No [id number] 150mg 150 mg, Intramuscu lar, [id number], 4 doses, First dose on Kristin 12/27/19 at 1000, Last dose on Kristin 09/04/20 at 1000, Routine [facility] medroxyPROG ESTERone (DEPO-PROVE RA) injection 150 mg 2020-0 5-14 15:00: 00 11-27 14:59 :00 No [id number] [facility] ESTERone (DEPO-PROVE RA) injection 150 mg 2020-0 5-14 15:00: 00 11-27 14:59 :00 No [id number] 150mg 150 mg, Intramuscu lar, [id number], 4 doses, First dose on Kristin 12/27/19 at 1000, Last dose on Kristin 09/04/20 at 1000, Routine [facility] medroxyPROG ESTERone (DEPO-PROVE RA) injection 150 mg 2020-0 5-14 15:00: 00 09-09 19:16 :00 No [id number] 150mg Univer s ity [facility] medroxyPROG ESTERone (DEPO-PROVE RA) injection 150 mg 2020-0 5-14 15:00: 00 09-09 19:16 :00 No [id number] 150mg 150 mg, Intramuscu lar, [id number], 4 doses, First dose on Kristin 12/27/19 at 1000, Last dose on Kristin 09/04/20 at 1000, Routine [facility] metroNIDAZO LE 500 mg tablet 14 00:00: 00 01-03 04:59 :00 No [id number] 500mg Take 1 tablet by mouth 2 (two) times daily for 7 days. [facility] metroNIDAZO LE 500 mg tablet 514 00:00: 00 01-03 04:59 :00 No [id number] 500mg Take 1 tablet by mouth 2 (two) times daily for 7 days. [facility] ondansetron (ZOFRAN (PF)) injection 4 mg 11-29 07:15: 11-29 06:14 :00 No 4mg 4 mg, Slow IV Push, ONCE, 1 dose, Tue11/30/19 at 0215, MARYANN [facility] famotidine 20 mg in NS 50 ml (PEPCID) 20 mg/50 mL Piggyback 20 mg 11-29 07:15: 11-29 06:38 :00 No 20mg 20 mg, IV Piggyback, ONCE, 1 dose, 11/30/19 at 0215, 50 mL [facility] maalox:diph enhydrAMINE :lidocaine 2 % viscous 1:1:1 (FIRST-MOUT HWASH BLM) oral suspension 15 mL 11-29 06:00: 00 11-29 04:59 :00 No 15mL 15 mL, Oral (Swish & Swallow), ONCE, 1 dose, Tue11/30/19 at 0100, Routine [facility] NaCl 0.9% (NS) bolus infusion 1,000 mL 11-29 05:15: 00 11-29 06:38 :00 No 1000mL at 999 mL/hr, 1,000 mL, IV Infusion, ONCE, 1 dose, 11/30/19 at 0015, STAT [facility] morpHINE injection 4 mg 11-29 05:15: 00 11-29 04:18 :00 No 4mg 4 mg, Slow IV Push, ONCE, 1 dose, 11/30/19 at 0015, Routine [facility] ondansetron (ZOFRAN (PF)) injection 4 mg 11-29 05:15: 00 11-29 04:18 :00 No 4mg 4 mg, Slow IV Push, ONCE, 1 dose, 11/30/19 at 0015, MARYANN [facility] famotidine (PEPCID) 40 mg tablet 11-29 00:00: 00 Yes [id number] 40mg Take 1 tablet by mouth daily. [facility] ondansetron (ZOFRAN ODT) 4 mg disintegrat ing tablet 11-29 00:00: 00 Yes [id number] 4mg Take 1 tablet by mouth every 8 (eight) hours as needed for Nausea and Vomiting (N/V). [facility] famotidine (PEPCID) 40 mg tablet 11-29 00:00: 00 12-26 00:00 :00 No [id number] 40mg Take 1 tablet by mouth daily. [facility] ondansetron (ZOFRAN ODT) 4 mg disintegrat ing tablet 11-29 00:00: 00 12-26 00:00 :00 No [id number] 4mg Take 1 tablet by mouth every 8 (eight) hours as needed for Nausea and Vomiting (N/V). [facility] famotidine (PEPCID) 40 mg tablet 11-29 00:00: 00 12-26 00:00 :00 No [id number] 40mg Take 1 tablet by mouth daily. [facility] ondansetron (ZOFRAN ODT) 4 mg disintegrat ing tablet 11-29 00:00: 00 12-26 00:00 :00 No [id number] 4mg Take 1 tablet by mouth every 8 (eight) hours as needed for Nausea and Vomiting (N/V). [facility] medroxyPROG ESTERone (DEPO-PROVE RA) injection 150 mg 10-03 17:30: 00 10-03 16:29 :00 No 150mg [facility] medroxyPROG ESTERone (DEPO-PROVE RA) injection 150 mg 10-03 17:30: 10-03 16:29 :00 No 150mg 150 mg, Intramuscu lar, ONCE, 1 dose, Tue10/03/19 at 1130, Routine [facility] medroxyPROG ESTERone (DEPO-PROVE RA) injection 150 mg 11-01 16:30: 00 10-03 17:29 :00 No [id number] [facility] ESTERone (DEPO-PROVE RA) injection 150 mg 11-01 16:30: 00 10-03 17:29 :00 No [id number] 150mg 150 mg, Intramuscu lar, [id number], 4 doses, First dose on Tue11/01/18 at 1130, Last dose on Tue07/11/19 at 1130, Routine [facility] medroxyPROG ESTERone (DEPO-PROVE RA) injection 150 mg 11-01 16:30: 10-03 17:29 :00 No [id number] [facility] medroxyPROG ESTERone (DEPO-PROVE RA) injection 150 mg 11-01 16:30: 10-03 17:29 :00 No [id number] 150mg 150 mg, Intramuscu lar, [id number], 4 doses, First dose on Tue11/01/18 at 1130, Last dose on Tue07/11/19 at 1130, Routine [facility] No known medications No Un thor [facility] No known medications [facility] No known medications No Un thor [facility] No known medications No Un thor [facility] Immunizations Ordered Immunization Name Filled Immunization Name Date Status Comments Source Influenza Virus Vaccine Quad .5 mL IM 6+ MO 2020-06-17 00:00:00 Completed [facility] Influenza Virus Vaccine Quad .5 mL IM 6+ MO 2020-06-17 00:00:00 Completed [facility] Influenza Virus Vaccine Quad .5 mL IM 6+ MO 2020-06-17 00:00:00 Completed [facility] Influenza Virus Vaccine Quad .5 mL IM 6+ MO 2020-06-17 00:00:00 Completed [facility] Influenza Virus Vaccine Quad .5 mL IM 6+ MO 2020-06-17 00:00:00 Completed [facility] Influenza Virus Vaccine Quad .5 mL IM 6+ MO 2020-06-17 00:00:00 Completed [facility] Influenza Virus Vaccine Quad .5 mL IM 6+ MO 2020-06-17 00:00:00 Completed [facility] Influenza Virus Vaccine Quad .5 mL IM 6+ MO 2020-06-17 00:00:00 Completed [facility] Influenza Virus Vaccine Quad .5 mL IM 6+ MO 2020-06-17 00:00:00 Completed [facility] Influenza Virus Vaccine Quad .5 mL IM 6+ MO 2020-06-17 00:00:00 Completed [facility] Influenza Virus Vaccine Quad .5 mL IM 6+ MO 2020-06-17 00:00:00 Completed [facility] Influenza Virus Vaccine Quad .5 mL IM 6+ MO 2020-06-17 00:00:00 Completed [facility] Influenza Virus Vaccine Quad .5 mL IM 6+ MO 2020-06-17 00:00:00 Completed [facility] Influenza Virus Vaccine Quad .5 mL IM 6+ MO 2020-06-17 00:00:00 Completed [facility] Influenza Virus Vaccine Quad .5 mL IM 6+ MO 2020-06-17 00:00:00 Completed [facility] Influenza Virus Vaccine Quad .5 mL IM 6+ MO 2020-06-17 00:00:00 Completed [facility] Influenza Virus Vaccine Quad .5 mL IM 6+ MO 2020-06-17 00:00:00 Completed [facility] Influenza Virus Vaccine Quad .5 mL IM 6+ MO 2020-06-17 00:00:00 Completed [facility] Influenza Virus Vaccine Quad .5 mL IM 6+ MO 2018-06-28 00:00:00 Completed [facility] TDAP (ADACEL) VACCINE 2018-06-28 00:00:00 Completed [facility] Influenza Virus Vaccine Quad .5 mL IM 6+ MO 2018-06-28 00:00:00 Completed [facility] TDAP (ADACEL) VACCINE 2018-06-28 00:00:00 Completed [facility] Influenza Virus Vaccine Quad .5 mL IM 6+ MO 2018-06-28 00:00:00 Completed [facility] TDAP (ADACEL) VACCINE 2018-06-28 00:00:00 Completed [facility] Influenza Virus Vaccine Quad .5 mL IM 6+ MO 2018-06-28 00:00:00 Completed [facility] TDAP (ADACEL) VACCINE 2018-06-28 00:00:00 Completed [facility] Influenza Virus Vaccine Quad .5 mL IM 6+ MO 2018-06-28 00:00:00 Completed [facility] TDAP (ADACEL) VACCINE 2018-06-28 00:00:00 Completed [facility] Influenza Virus Vaccine Quad .5 mL IM 6+ MO 2018-06-28 00:00:00 Completed [facility] TDAP (ADACEL) VACCINE 2018-06-28 00:00:00 Completed [facility] Influenza Virus Vaccine Quad .5 mL IM 6+ MO 2018-06-28 00:00:00 Completed [facility] TDAP (ADACEL) VACCINE 2018-06-28 00:00:00 Completed [facility] Influenza Virus Vaccine Quad .5 mL IM 6+ MO 2018-06-28 00:00:00 Completed [facility] TDAP (ADACEL) VACCINE 2018-06-28 00:00:00 Completed [facility] Influenza Virus Vaccine Quad .5 mL IM 6+ MO 2018-06-28 00:00:00 Completed [facility] TDAP (ADACEL) VACCINE 2018-06-28 00:00:00 Completed [facility] Influenza Virus Vaccine Quad .5 mL IM 6+ MO 2018-06-28 00:00:00 Completed [facility] TDAP (ADACEL) VACCINE 2018-06-28 00:00:00 Completed [facility] Influenza Virus Vaccine Quad .5 mL IM 6+ MO 2018-06-28 00:00:00 Completed [facility] TDAP (ADACEL) VACCINE 2018-06-28 00:00:00 Completed [facility] Influenza Virus Vaccine Quad .5 mL IM 6+ MO 2018-06-28 00:00:00 Completed [facility] TDAP (ADACEL) VACCINE 2018-06-28 00:00:00 Completed [facility] Influenza Virus Vaccine Quad .5 mL IM 6+ MO 2018-06-28 00:00:00 Completed [facility] TDAP (ADACEL) VACCINE 2018-06-28 00:00:00 Completed [facility] Influenza Virus Vaccine Quad .5 mL IM 6+ MO 2018-06-28 00:00:00 Completed [facility] TDAP (ADACEL) VACCINE 2018-06-28 00:00:00 Completed [facility] Influenza Virus Vaccine Quad .5 mL IM 6+ MO 2018-06-28 00:00:00 Completed [facility] TDAP (ADACEL) VACCINE 2018-06-28 00:00:00 Completed [facility] Influenza Virus Vaccine Quad .5 mL IM 6+ MO 2018-06-28 00:00:00 Completed [facility] TDAP (ADACEL) VACCINE 2018-06-28 00:00:00 Completed [facility] Influenza Virus Vaccine Quad .5 mL IM 6+ MO 2018-06-28 00:00:00 Completed [facility] TDAP (ADACEL) VACCINE 2018-06-28 00:00:00 Completed [facility] Influenza Virus Vaccine Quad .5 mL IM 6+ MO 2018-06-28 00:00:00 Completed [facility] TDAP (ADACEL) VACCINE 2018-06-28 00:00:00 Completed [facility] Influenza Virus Vaccine Quad .5 mL IM 6+ MO 2018-06-28 00:00:00 Completed [facility] TDAP (ADACEL) VACCINE 2018-06-28 00:00:00 Completed [facility] Influenza Virus Vaccine Quad .5 mL IM 6+ MO 2018-06-28 00:00:00 Completed [facility] TDAP (ADACEL) VACCINE 2018-06-28 00:00:00 Completed [facility] Influenza Virus Vaccine Quad .5 mL IM 6+ MO 2018-06-28 00:00:00 Completed [facility] TDAP (ADACEL) VACCINE 2018-06-28 00:00:00 Completed [facility] Influenza Virus Vaccine Quad .5 mL IM 6+ MO 2018-06-28 00:00:00 Completed [facility] TDAP (ADACEL) VACCINE 2018-06-28 00:00:00 Completed [facility] Influenza Virus Vaccine Quad .5 mL IM 6+ MO 2018-06-28 00:00:00 Completed [facility] TDAP (ADACEL) VACCINE 2018-06-28 00:00:00 Completed [facility] Influenza Virus Vaccine Quad .5 mL IM 6+ MO 2018-06-28 00:00:00 Completed [facility] TDAP (ADACEL) VACCINE 2018-06-28 00:00:00 Completed [facility] Influenza Virus Vaccine Quad .5 mL IM 6+ MO 2018-06-28 00:00:00 Completed [facility] TDAP (ADACEL) VACCINE 2018-06-28 00:00:00 Completed [facility] Influenza Virus Vaccine Quad .5 mL IM 6+ MO 2018-06-28 00:00:00 Completed [facility] TDAP (ADACEL) VACCINE 2018-06-28 00:00:00 Completed [facility] Tdap 2017-03-01 00:00:00 Completed [facility] Tdap 2017-03-01 00:00:00 Completed [facility] Tdap 2017-03-01 00:00:00 Completed [facility] TDAP 2017-03-01 00:00:00 Completed [facility] TDAP 2017-03-01 00:00:00 Completed [facility] TDAP 2017-03-01 00:00:00 Completed [facility] TDAP 2017-03-01 00:00:00 Completed [facility] TDAP 2017-03-01 00:00:00 Completed [facility] TDAP 2017-03-01 00:00:00 Completed [facility] TDAP 2017-03-01 00:00:00 Completed [facility] TDAP 2017-03-01 00:00:00 Completed [facility] TDAP 2017-03-01 00:00:00 Completed [facility] TDAP 2017-03-01 00:00:00 Completed [facility] TDAP 2017-03-01 00:00:00 Completed [facility] TDAP 2017-03-01 00:00:00 Completed [facility] TDAP 2017-03-01 00:00:00 Completed [facility] TDAP 2017-03-01 00:00:00 Completed [facility] Tdap 2017-03-01 00:00:00 Completed [facility] TDAP 2017-03-01 00:00:00 Completed [facility] TDAP 2017-03-01 00:00:00 Completed [facility] TDAP 2017-03-01 00:00:00 Completed [facility] TDAP 2017-03-01 00:00:00 Completed [facility] TDAP 2017-03-01 00:00:00 Completed [facility] TDAP 2017-03-01 00:00:00 Completed [facility] Tdap 2017-03-01 00:00:00 Completed [facility] Tdap 2017-03-01 00:00:00 Completed [facility] Tdap 2014-10-16 00:00:00 Completed [facility] Tdap 2014-10-16 00:00:00 Completed [facility] Tdap 2014-10-16 00:00:00 Completed [facility] TDAP 2014-10-16 00:00:00 Completed [facility] TDAP 2014-10-16 00:00:00 Completed [facility] TDAP 2014-10-16 00:00:00 Completed [facility] TDAP 2014-10-16 00:00:00 Completed [facility] TDAP 2014-10-16 00:00:00 Completed [facility] TDAP 2014-10-16 00:00:00 Completed [facility] TDAP 2014-10-16 00:00:00 Completed [facility] TDAP 2014-10-16 00:00:00 Completed [facility] TDAP 2014-10-16 00:00:00 Completed [facility] TDAP 2014-10-16 00:00:00 Completed [facility] TDAP 2014-10-16 00:00:00 Completed [facility] TDAP 2014-10-16 00:00:00 Completed [facility] TDAP 2014-10-16 00:00:00 Completed [facility] Tdap 2014-10-16 00:00:00 Completed [facility] TDAP 2014-10-16 00:00:00 Completed [facility] TDAP 2014-10-16 00:00:00 Completed [facility] TDAP 2014-10-16 00:00:00 Completed [facility] TDAP 2014-10-16 00:00:00 Completed [facility] TDAP 2014-10-16 00:00:00 Completed [facility] TDAP 2014-10-16 00:00:00 Completed [facility] TDAP 2014-10-16 00:00:00 Completed [facility] Tdap 2014-10-16 00:00:00 Completed [facility] Tdap 2014-10-16 00:00:00 Completed [facility] Influenza Virus Vaccine Quad IM Multi-dose 6+ MO 2014-06-19 00:00:00 Completed [facility] Influenza Virus Vaccine Quad IM Multi-dose 6+ MO 2014-06-19 00:00:00 Completed [facility] Influenza Virus Vaccine Quad IM Multi-dose 6+ MO 2014-06-19 00:00:00 Completed [facility] Influenza Virus Vaccine Quad IM Multi-dose 6+ MO 2014-06-19 00:00:00 Completed [facility] Influenza Virus Vaccine Quad IM Multi-dose 6+ MO 2014-06-19 00:00:00 Completed [facility] Influenza Virus Vaccine Quad IM Multi-dose 6+ MO 2014-06-19 00:00:00 Completed [facility] Influenza Virus Vaccine Quad IM Multi-dose 6+ MO 2014-06-19 00:00:00 Completed [facility] Influenza Virus Vaccine Quad IM Multi-dose 6+ MO 2014-06-19 00:00:00 Completed [facility] Influenza Virus Vaccine Quad IM Multi-dose 6+ MO 2014-06-19 00:00:00 Completed [facility] Influenza Virus Vaccine Quad IM Multi-dose 6+ MO 2014-06-19 00:00:00 Completed [facility] Influenza Virus Vaccine Quad IM Multi-dose 6+ MO 2014-06-19 00:00:00 Completed [facility] Influenza Virus Vaccine Quad IM Multi-dose 6+ MO 2014-06-19 00:00:00 Completed [facility] Influenza Virus Vaccine Quad IM Multi-dose 6+ MO 2014-06-19 00:00:00 Completed [facility] Influenza Virus Vaccine Quad IM Multi-dose 6+ MO 2014-06-19 00:00:00 Completed [facility] Influenza Virus Vaccine Quad IM Multi-dose 6+ MO 2014-06-19 00:00:00 Completed [facility] Influenza Virus Vaccine Quad IM Multi-dose 6+ MO 2014-06-19 00:00:00 Completed [facility] Influenza Virus Vaccine Quad IM Multi-dose 6+ MO 2014-06-19 00:00:00 Completed [facility] Influenza Virus Vaccine Quad IM Multi-dose 6+ MO 2014-06-19 00:00:00 Completed [facility] Influenza Virus Vaccine Quad IM Multi-dose 6+ MO 2014-06-19 00:00:00 Completed [facility] Influenza Virus Vaccine Quad IM Multi-dose 6+ MO 2014-06-19 00:00:00 Completed [facility] Influenza Virus Vaccine Quad IM Multi-dose 6+ MO 2014-06-19 00:00:00 Completed [facility] Influenza Virus Vaccine Quad IM Multi-dose 6+ MO 2014-06-19 00:00:00 Completed [facility] Influenza Virus Vaccine Quad IM Multi-dose 6+ MO 2014-06-19 00:00:00 Completed [facility] Influenza Virus Vaccine Quad IM Multi-dose 6+ MO 2014-06-19 00:00:00 Completed [facility] Influenza Virus Vaccine Quad IM Multi-dose 6+ MO 2014-06-19 00:00:00 Completed [facility] Influenza Virus Vaccine Quad IM Multi-dose 6+ MO 2014-06-19 00:00:00 Completed [facility] Tdap 2013-03-22 00:00:00 Completed [facility] Tdap 2013-03-22 00:00:00 Completed [facility] Tdap 2013-03-22 00:00:00 Completed [facility] TDAP 2013-03-22 00:00:00 Completed [facility] TDAP 2013-03-22 00:00:00 Completed [facility] TDAP 2013-03-22 00:00:00 Completed [facility] TDAP 2013-03-22 00:00:00 Completed [facility] TDAP 2013-03-22 00:00:00 Completed [facility] TDAP 2013-03-22 00:00:00 Completed [facility] TDAP 2013-03-22 00:00:00 Completed [facility] TDAP 2013-03-22 00:00:00 Completed [facility] TDAP 2013-03-22 00:00:00 Completed [facility] TDAP 2013-03-22 00:00:00 Completed [facility] TDAP 2013-03-22 00:00:00 Completed [facility] Tdap 2013-03-22 00:00:00 Completed [facility] TDAP 2013-03-22 00:00:00 Completed [facility] TDAP 2013-03-22 00:00:00 Completed [facility] TDAP 2013-03-22 00:00:00 Completed [facility] TDAP 2013-03-22 00:00:00 Completed [facility] TDAP 2013-03-22 00:00:00 Completed [facility] TDAP 2013-03-22 00:00:00 Completed [facility] TDAP 2013-03-22 00:00:00 Completed [facility] TDAP 2013-03-22 00:00:00 Completed [facility] TDAP 2013-03-22 00:00:00 Completed [facility] Tdap 2013-03-22 00:00:00 Completed [facility] Tdap 2013-03-22 00:00:00 Completed [facility] Rubella 2009-12-24 00:00:00 Completed [facility] Rubella 2009-12-24 00:00:00 Completed [facility] Rubella 2009-12-24 00:00:00 Completed [facility] Rubella 2009-12-24 00:00:00 Completed [facility] Rubella 2009-12-24 00:00:00 Completed [facility] Rubella 2009-12-24 00:00:00 Completed [facility] Rubella 2009-12-24 00:00:00 Completed [facility] Rubella 2009-12-24 00:00:00 Completed [facility] Rubella 2009-12-24 00:00:00 Completed [facility] Rubella 2009-12-24 00:00:00 Completed [facility] Rubella 2009-12-24 00:00:00 Completed [facility] Rubella 2009-12-24 00:00:00 Completed [facility] Rubella 2009-12-24 00:00:00 Completed [facility] Rubella 2009-12-24 00:00:00 Completed [facility] Rubella 2009-12-24 00:00:00 Completed [facility] Rubella 2009-12-24 00:00:00 Completed [facility] Rubella 2009-12-24 00:00:00 Completed [facility] Rubella 2009-12-24 00:00:00 Completed [facility] Rubella 2009-12-24 00:00:00 Completed [facility] Rubella 2009-12-24 00:00:00 Completed [facility] Rubella 2009-12-24 00:00:00 Completed [facility] Rubella 2009-12-24 00:00:00 Completed [facility] Rubella 2009-12-24 00:00:00 Completed [facility] Rubella 2009-12-24 00:00:00 Completed [facility] Rubella 2009-12-24 00:00:00 Completed [facility] Rubella 2009-12-24 00:00:00 Completed [facility] TDAP Unknown Completed [facility] Rubella Unknown Completed [facility] Influenza Virus Vaccine Quad IM Multi-dose 6+ MO Unknown Completed [facility] TDAP Unknown Completed [facility] TDAP Unknown Completed [facility] Influenza Virus Vaccine Quad .5 mL IM 6+ MO (FLUZONE/FLULAVAL/F LUARIX) Unknown Completed [facility] TDAP (ADACEL) VACCINE Unknown Completed [facility] Influenza Virus Vaccine Quad .5 mL IM 6+ MO (FLUZONE/FLULAVAL/F LUARIX) Unknown Completed [facility] TDAP Unknown Completed [facility] Rubella Unknown Completed [facility] Influenza Virus Vaccine Quad IM Multi-dose 6+ MO Unknown Completed [facility] TDAP Unknown Completed [facility] TDAP Unknown Completed [facility] Influenza Virus Vaccine Quad .5 mL IM 6+ MO (FLUZONE/FLULAVAL/F LUARIX) Unknown Completed [facility] TDAP (ADACEL) VACCINE Unknown Completed [facility] Influenza Virus Vaccine Quad .5 mL IM 6+ MO (FLUZONE/FLULAVAL/F LUARIX) Unknown Completed [facility] TDAP Unknown Completed [facility] Rubella Unknown Completed [facility] Influenza Virus Vaccine Quad IM Multi-dose 6+ MO Unknown Completed [facility] TDAP Unknown Completed [facility] TDAP Unknown Completed [facility] Influenza Virus Vaccine Quad .5 mL IM 6+ MO (FLUZONE/FLULAVAL/F LUARIX) Unknown Completed [facility] TDAP (ADACEL) VACCINE Unknown Completed [facility] Influenza Virus Vaccine Quad .5 mL IM 6+ MO (FLUZONE/FLULAVAL/F LUARIX) Unknown Completed [facility] TDAP Unknown Completed [facility] Rubella Unknown Completed [facility] Influenza Virus Vaccine Quad IM Multi-dose 6+ MO Unknown Completed [facility] TDAP Unknown Completed [facility] TDAP Unknown Completed [facility] Influenza Virus Vaccine Quad .5 mL IM 6+ MO (FLUZONE/FLULAVAL/F LUARIX) Unknown Completed [facility] TDAP (ADACEL) VACCINE Unknown Completed [facility] Influenza Virus Vaccine Quad .5 mL IM 6+ MO (FLUZONE/FLULAVAL/F LUARIX) Unknown Completed [facility] Vital Signs Vital Name Observation Time Observation Value Comments S ource Systolic blood pressure 2023-06-04 15:42:00 121 mm[Hg] [facility] Diastolic blood pressure 2023-06-04 15:42:00 67 mm[Hg] [facility] Heart rate 2023-06-04 15:42:00 58 /min [facility] Body temperature 2023-06-04 15:42:00 36.44 Ying [facility] Respiratory rate 2023-06-04 15:42:00 17 /min [facility] Body height 2023-06-04 15:42:00 170.2 cm [facility] Body weight 2023-06-04 15:42:00 56.473 kg [facility] BMI 2023-06-04 15:42:00 19.50 kg/m2 [facility] Systolic blood pressure 2022-12-29 20:26:00 124 mm[Hg] [facility] Diastolic blood pressure 2022-12-29 20:26:00 62 mm[Hg] [facility] Heart rate 2022-12-29 20:26:00 75 /min [facility] Body temperature 2022-12-29 20:26:00 36.44 Ying [facility] Respiratory rate 2022-12-29 20:26:00 20 /min [facility] Body height 2022-12-29 20:26:00 170.2 cm [facility] Body weight 2022-12-29 20:26:00 58.786 kg [facility] BMI 2022-12-29 20:26:00 20.30 kg/m2 [facility] Systolic blood pressure 2022-09-06 16:39:00 123 mm[Hg] [facility] Diastolic blood pressure 2022-09-06 16:39:00 71 mm[Hg] [facility] Heart rate 2022-09-06 16:39:00 65 /min [facility] Body temperature 2022-09-06 16:39:00 36.5 Ying [facility] Respiratory rate 2022-09-06 16:39:00 18 /min [facility] Body height 2022-09-06 16:39:00 170.2 cm [facility] Body weight 2022-09-06 16:39:00 59.478 kg [facility] BMI 2022-09-06 16:39:00 20.54 kg/m2 [facility] Systolic blood pressure 2022-08-23 15:09:00 122 mm[Hg] [facility] Diastolic blood pressure 2022-08-23 15:09:00 77 mm[Hg] [facility] Heart rate 2022-08-23 15:09:00 79 /min [facility] Body temperature 2022-08-23 15:09:00 36.39 Ying [facility] Respiratory rate 2022-08-23 15:09:00 18 /min [facility] Body height 2022-08-23 15:09:00 170.2 cm [facility] Body weight 2022-08-23 15:09:00 57.72 kg [facility] BMI 2022-08-23 15:09:00 19.93 kg/m2 [facility] Systolic blood pressure 2022-05-21 14:29:00 129 mm[Hg] [facility] Diastolic blood pressure 2022-05-21 14:29:00 76 mm[Hg] [facility] Heart rate 2022-05-21 14:29:00 67 /min [facility] Body temperature 2022-05-21 14:29:00 36.78 Ying [facility] Respiratory rate 2022-05-21 14:29:00 20 /min [facility] Body height 2022-05-21 14:29:00 170.2 cm [facility] Body weight 2022-05-21 14:29:00 56.155 kg [facility] BMI 2022-05-21 14:29:00 19.39 kg/m2 [facility] Systolic blood pressure 2020-12-31 19:56:00 134 mm[Hg] [facility] Diastolic blood pressure 2020-12-31 19:56:00 94 mm[Hg] [facility] Heart rate 2020-12-31 19:55:00 63 /min [facility] Body temperature 2020-12-31 19:55:00 36.78 Ying [facility] Respiratory rate 2020-12-31 19:55:00 16 /min [facility] Body height 2020-12-31 19:55:00 170.2 cm [facility] Body weight 2020-12-31 19:55:00 58.106 kg [facility] BMI 2020-12-31 19:55:00 20.06 kg/m2 [facility] Systolic blood pressure 2020-09-09 19:08:00 120 mm[Hg] [facility] Diastolic blood pressure 2020-09-09 19:08:00 81 mm[Hg] [facility] Heart rate 2020-09-09 19:08:00 69 /min [facility] Body temperature 2020-09-09 19:08:00 36.67 Yign [facility] Respiratory rate 2020-09-09 19:08:00 16 /min [facility] Body height 2020-09-09 19:08:00 [facility]7 [facility] 2020-09-09 19:08:00 57.561 kg [facility] BMI 2020-09-09 19:08:00 19.76 kg/m2 [facility] Systolic blood pressure 2020-06-17 15:56:00 124 mm[Hg] [facility] Diastolic blood pressure 2020-06-17 15:56:00 81 mm[Hg] [facility] Heart rate 2020-06-17 15:56:00 77 /min [facility] Body temperature 2020-06-17 15:56:00 36.5 Ying [facility] Respiratory rate 2020-06-17 15:56:00 16 /min [facility] Body height 2020-06-17 15:56:00 167.6 cm [facility] Body weight 2020-06-17 15:56:00 58.287 kg [facility] BMI 2020-06-17 15:56:00 20.74 kg/m2 [facility] Systolic blood pressure 2020-03-20 14:17:00 126 mm[Hg] [facility] Diastolic blood pressure 2020-03-20 14:17:00 86 mm[Hg] [facility] Heart rate 2020-03-20 14:17:00 81 /min [facility] Body temperature 2020-03-20 14:17:00 36.72 Ying [facility] Respiratory rate 2020-03-20 14:17:00 16 /min [facility] Body height 2020-03-20 14:17:00 167.6 cm [facility] Body weight 2020-03-20 14:17:00 58.378 kg [facility] BMI 2020-03-20 14:17:00 20.77 kg/m2 [facility] Systolic blood pressure 2019-12-27 13:57:00 126 mm[Hg] [facility] Diastolic blood pressure 2019-12-27 13:57:00 86 mm[Hg] [facility] Heart rate 2019-12-27 13:57:00 72 /min [facility] Body temperature 2019-12-27 13:57:00 36.39 Ying [facility] Respiratory rate 2019-12-27 13:57:00 16 /min [facility] Body height 2019-12-27 13:57:00 161.3 cm [facility] Body weight 2019-12-27 13:57:00 59.932 kg [facility] BMI 2019-12-27 13:57:00 23.04 kg/m2 [facility] Systolic blood pressure 2019-11-30 06:30:00 126 mm[Hg] [facility] Diastolic blood pressure 2019-11-30 06:30:00 87 mm[Hg] [facility] Heart rate 2019-11-30 06:30:00 65 /min [facility] Respiratory rate 2019-11-30 06:30:00 12 /min [facility] Oxygen saturation in Arterial blood by Pulse oximetry 2019-11-30 06:30:00 100 /min [facility] Body temperature 2019-11-30 04:02:00 36.78 Ying [facility] Body height 2019-11-30 04:02:00 162.6 cm [facility] Body weight 2019-11-30 04:02:00 61.236 kg [facility] BMI 2019-11-30 04:02:00 23.17 kg/m2 [facility] Systolic blood pressure 2019-10-03 16:27:00 126 mm[Hg] [facility] Diastolic blood pressure 2019-10-03 16:27:00 83 mm[Hg] [facility] Heart rate 2019-10-03 16:27:00 63 /min [facility] Body temperature 2019-10-03 16:27:00 36.17 Ying [facility] Respiratory rate 2019-10-03 16:27:00 18 /min [facility] Body height 2019-10-03 16:27:00 160 cm [facility] Body weight 2019-10-03 16:27:00 57.352 kg [facility] BMI 2019-10-03 16:27:00 22.40 kg/m2 [facility] Systolic blood pressure 2019-04-18 15:26:00 111 mm[Hg] [facility] Diastolic blood pressure 2019-04-18 15:26:00 72 mm[Hg] [facility] Heart rate 2019-04-18 15:26:00 98 /min [facility] Body temperature 2019-04-18 15:26:00 36.67 Ying [facility] Respiratory rate 2019-04-18 15:26:00 16 /min [facility] Body height 2019-04-18 15:26:00 160 cm [facility] Body weight 2019-04-18 15:26:00 55.566 kg [facility] BMI 2019-04-18 15:26:00 21.70 kg/m2 [facility] Procedures Procedure Date / Time Performed Performing Clinician Source ASSIGNMENT OF BENEFITS 2023-06-04 15:31:14 Docmacho r Unassigned, [place] [facility] POCT TEST 2022-12-29 00:00:00 Dontae Montalvo [facility] POCT TEST 2022-09-06 00:00:00 Dontae Montalvo [facility] POCT TEST 2022-08-23 15:28:00 Dontae Montalvo [facility] ASSIGNMENT OF BENEFITS 2022-05-21 14:13:42 Docto r Unassigned, [place] [facility] HIV 1/2 AG-AB WITH REFLEX 2020-12-31 21:01:00 Carloz Estrada [facility] PAP SMEAR-LIQUID BASED-CP 2020-12-31 21:01:00 Carloz Estrada [facility] GALV ONLY - SYPHILIS IGG/IGM 2020-12-31 21:01:00 Carloz Estrada [facility] FLU VACC ([id number]), 6+ MONTHS, IM, QUAD 2020-06-17 16:09:14 Cecilia Montalvo [facility] URINALYSIS 2019-11-30 05:08:00 Sasha García [facility] POCT TEST 2019-11-30 05:08:00 Sasha García e [facility] LIPASE 2019-11-30 04:15:00 [facility] 2019-11-30 04:15:00 Sasha García [facility] COMP. METABOLIC PANEL ([id number]) 2019-11-30 04:15:00 Sasha García [facility] CBC WITH DIFFERENTIAL 2019-11-30 04:15:00 Sasha García [facility] EKG-12 LEAD 2019-11-30 04:14:04 Sasha García [facility] Encounters Start Date/Time End Date/Time Encounter Type Admission Type Attending [facility] Facility Care Department Encounter ID Source 2021-06-11 18:15:16 Emergency [facility] [id number] [facility] 2023-07-26 00:00:00 2023-07-26 00:00:00 Telephone Cecilia Montalvo [facility] POLITICAL SCIENCE RESEARCH ASSISTANT [facility] CHILD [facility] 1..840.114 350.1.13.10 4.2.7.2.686 [id number] 107 [id number] [facility] 2023-06-23 08:50:16 2023-06-23 08:50:16 Outpatient SFA SFA [id number] Abisai Maravilla 2023-06-04 10:45:00 2023-06-04 11:25:29 Outpatient R CECILIA MONTALVO [facility] [id number] [facility] 2023-06-04 10:45:00 2023-06-04 11:25:29 Office Visit Cecilia Montalvo [facility] POLITICAL SCIENCE RESEARCH ASSISTANT [facility] CHILD [facility] 1..840.114 350.1.13.10 [id number] [id number] 107 [id number] [facility] 2023-06-04 00:00:00 2023-06-04 00:00:00 Orders Only Doctor Unassigned, [place] [facility] 1..840.114 350.1.13.10 4.2.7.2.686 [id number] [facility] 2022-12-29 13:45:00 2022-12-29 15:40:04 Nurse Visit Visit, Ang-Rmchp Nurse Marybeth Mena [facility] POLITICAL SCIENCE RESEARCH ASSISTANT [facility] & CHILD [facility] 1..840.114 350.1.13.10 4.2.7.2.686 [id number] [facility] 2022-12-29 13:45:00 2022-12-29 13:45:00 Outpatient R MARYBETH MENA [facility] [id number] [facility] 2022-11-29 10:30:00 2022-11-29 10:30:00 Outpatient R CECILIA MONTALVO [facility] [id number] [facility] 2022-10-05 08:59:30 2022-10-05 08:59:30 Outpatient SFA SFA [id number] Abisai Maravilla 2022-09-06 10:30:00 2022-09-06 11:44:19 Outpatient R CECILIA MONTALVO [facility] [id number] [facility] 2022-09-06 10:30:00 2022-09-06 11:44:19 Office Visit Cecilia Montalvo [facility] POLITICAL SCIENCE RESEARCH ASSISTANT [facility] & CHILD [facility] .840.114 350.1.13.10 4.2.7.2.686 [id number] [facility] 2022-09-06 10:30:00 2022-09-06 10:30:00 Outpatient R CECILIA MONTALVO [facility] [id number] [facility] 2022-08-23 09:15:00 2022-08-23 09:30:00 Office Visit Cecilia Montalvo Roshunda R [facility] POLITICAL SCIENCE RESEARCH ASSISTANT [facility] & CHILD [facility] .840.114 350.1.13.10 4.2.7.2.686 [id number] 107 [id number] [facility] 2022-08-23 09:15:00 2022-08-23 09:15:00 Outpatient R CECILIA MONTALVO [facility] [id number] [facility] 2022-08-23 09:15:00 2022-08-23 09:15:00 Outpatient R CECILIA OMNTALVO [facility] [id number] [facility] 2022-05-27 00:00:00 2022-05-27 00:00:00 Case Management Pza Rodriguez [facility] POLITICAL SCIENCE RESEARCH ASSISTANT [facility] & CHILD [facility] .840.114 350.1.13.10 4.2.7.2.686 [id number] [facility] 2022-05-27 00:00:00 2022-05-27 00:00:00 Telephone Carloz Estrada [facility] POLITICAL SCIENCE RESEARCH ASSISTANT [facility] CHILD [facility] .840.114 350.1.13.10 4.2.7.2.686 [id number] 107 [id number] [facility] 2022-05-21 09:30:00 2022-05-21 10:35:50 Outpatient R PAZ RODRIGUEZ EMILY [facility] [id number] [facility] 2022-05-21 09:30:00 2022-05-21 10:35:50 Office Visit Provider, MulugetaRmchp [place] [facility] POLITICAL SCIENCE RESEARCH ASSISTANT [facility] & CHILD [facility] ..840.114 350.1.13.10 4.2.7.2.686 [id number] 107 [id number] [facility] 2022-05-21 00:00:00 2022-05-21 00:00:00 Orders Only Doctor Unassigned, [place] [facility] 1.114 350.1.13.10 4.2.7.2.686 [id number] [facility] 2021-03-04 15:58:22 2021-03-04 16:18:22 Laboratory Only Lab, Adc Fam Pob Jonah Cole [facility] [address] 1.114 350.1.13.10 4.2.7.2.686 [id number] [facility] 2021-03-04 16:00:00 2021-03-04 16:00:00 Outpatient Joss BAILEY VELMA [facility] [id number] [facility] 2020-12-31 13:43:57 2020-12-31 15:58:41 Office Visit Carloz Estrada [facility] POLITICAL SCIENCE RESEARCH ASSISTANT [facility] CHILD [facility] 1..114 350.1.13.10 4.2.7.2.686 [id number] [facility] 2020-12-31 13:45:00 2020-12-31 13:45:00 Outpatient CARLOZ GOLDSMITH [facility] [id number] [facility] 2020-12-10 13:00:00 2020-12-10 13:00:00 Outpatient CARLOZ GOLDSMITH [facility] [id number] [facility] [facility] 2020-12-08 00:00:00 2020-12-08 00:00:00 [facility] POLITICAL SCIENCE RESEARCH ASSISTANT [facility] & CHILD [facility] 1..114 [id number] [id number] [id number] [facility] 2020-12-05 13:30:00 2020-12-05 13:30:00 Outpatient R [facility] [id number] [facility] 2020-12-02 10:30:00 2020-12-02 10:30:00 Outpatient R [facility] [id number] [facility] 2020-09-09 13:00:15 2020-09-09 13:15:06 Nurse Visit Visit, NerisCarloz Stratton [facility] POLITICAL SCIENCE RESEARCH ASSISTANT [facility] & CHILD [facility] [id number] [id number] 107 [id number] [facility] 2020-09-09 13:00:00 2020-09-09 13:00:00 Outpatient R [facility] [id number] [facility] 2020-09-09 09:00:00 2020-09-09 09:00:00 Outpatient R [facility] [id number] [facility] 2020-06-17 09:46:17 2020-06-17 10:09:51 Nurse Visit Visit, Carloz Rodríguez [facility] POLITICAL SCIENCE RESEARCH ASSISTANT [facility] & CHILD [facility] [id number] [id number] [id number] [facility] 2020-06-17 09:00:00 2020-06-17 09:00:00 Outpatient R [facility] [id number] [facility] 2020-06-13 09:00:00 2020-06-13 09:00:00 Outpatient R [facility] [id number] [facility] 2020-06-12 09:00:00 2020-06-12 09:00:00 Outpatient R [facility] [id number] [facility] 2020-03-20 09:09:33 2020-03-20 09:24:33 Nurse Visit Visit, NerisCarloz Stratton [facility] POLITICAL SCIENCE RESEARCH ASSISTANT [facility] CHILD [facility] [id number] [id number] [id number] [id number] 107 [id number] [facility] 2020-03-20 09:00:00 2020-03-20 09:00:00 Outpatient R [facility] [id number] [facility] 2019-12-27 13:45:00 2019-12-27 13:45:00 Outpatient R NATALIE CARLOZ [facility] [id number] [facility] 2019-12-27 08:48:58 2019-12-27 09:43:47 Office Visit Carloz Estrada [facility] POLITICAL SCIENCE RESEARCH ASSISTANT [facility] [id number] [id number] [id number] [id number] [facility] 2019-12-27 08:45:00 2019-12-27 08:45:00 Outpatient R ESTRADA, CARLOZ [facility] [id number] [facility] 2019-11-29 22:52:52 2019-11-30 01:43:00 Emergency Sasha García [facility] [id number] [id number] [id number] [facility] 2019-10-03 10:10:03 2019-10-03 10:25:03 [facility] POLITICAL SCIENCE RESEARCH ASSISTANT [facility] [id number] [id number] [id number] [id number] [facility] 2019-04-18 10:18:19 2019-04-18 10:18:31 Nurse Visit Visit, [facility] POLITICAL SCIENCE RESEARCH ASSISTANT [facility] [id number] [id number] [id number] [id number] [facility] Results Test Description Test Time Test Comments Results Result Co mments Source [facility] [id number] 17:07:00* Test Item Value Reference Range Interpretation Comme nts POCT PREG (test code = 1605) Negative On board controls acceptable with C Line (test code = 3574) Yes POCT PREG LOT # (test code = 3575) POCT PREG TEST DATE ( test code = 3576) [facility] [id number] 17:07:00* Test Item Value Reference Range Interpretation Comme nts POCT PREG (test code = 1605) Negative On board controls acceptable with C Line (test code = 3574) Yes POCT PREG LOT # (test code = 3575) POCT PREG TEST DATE ( test code = 3576) [facility] [id number] 15:28:00* Test Item Value Reference Range Interpretation Comme nts POCT PREG (test code = 1605) Negative On board controls acceptable with C Line (test code = 3574) Yes POCT PREG LOT # (test code = 3575) POCT PREG TEST DATE ( test code = 3576) [facility] [id number] 15:28:00* Test Item Value Reference Range Interpretation Comme nts POCT PREG (test code = 1605) Negative On board controls acceptable with C Line (test code = 3574) Yes POCT PREG LOT # (test code = 3575) POCT PREG TEST DATE ( test code = 3576) [facility] ONLY - [place] [id number] 14:24:30* Test Item Value Reference Range Interpretation Comme nts Syphilis IgG/IgM (test code = 97941-6) Non-reactive Non-reactive ELLE (test code = ELLE) Non-reactive - No serologic evidence of T. pallidum infection. Cannot exclude incubating or early syphilis. Submit a second specimen in 2-4 weeks if syphilis is clinically suspected. Equivocal - Further testing to follow. Reactive - Further testing to follow. Lab Interpretation (test code = 59321-8) Normal [facility] ONLY - [place] [id number] 14:24:30* Test Item Value Reference Range Interpretation Comme nts Syphilis IgG/IgM (test code = 91956-4) Non-reactive Non-reactive ELLE (test code = ELLE) Non-reactive - No serologic evidence of T. pallidum infection. Cannot exclude incubating or early syphilis. Submit a second specimen in 2-4 weeks if syphilis is clinically suspected. Equivocal - Further testing to follow. Reactive - Further testing to follow. Lab Interpretation (test code = 68870-5) Normal [facility] acute hospital 1/2 AG-AB WITH [id number] 05:02:24* Test Item Value Reference Range Interpretation Comme nts HIV Semi-quantitative (test code = 65676-3) Negative Negative ELLE (test code = ELLE) Non-reactive for HIV-1 antigen and HIV-1/HIV-2 antibodies. ?No laboratory evidence of HIV infection. ?Repeat in 2-4 weeks if acute HIV infection is suspected. General acute hospital 1/2 AG-AB WITH [id number] 05:02:24* Test Item Value Reference Range Interpretation Comme nts HIV Semi-quantitative (test code = 72969-4) Negative Negative ELLE (test code = ELLE) Non-reactive for HIV-1 antigen and HIV-1/HIV-2 antibodies. ?No laboratory evidence of HIV infection. ?Repeat in 2-4 weeks if acute HIV infection is suspected. [facility] 05:25:00* Test Item Value Reference Range Interpretation Comme nts APPEARANCE (test code = 4086397367) Clear Clear COLOR (test code = 7719184714) Straw Yellow A PH (test code = 7138999834) 4.8-8.0 SP GRAVITY (test code = 7887093926) 1.003-1.030 GLU U QUAL (test code = 6742995750) Normal Normal BLOOD (test code = 1449876302) Negative Negative KETONES (test code = 3293208164) Negative Negative PROTEIN (test code = 2887-8) Negative Negative UROBILIN (test code = 7721900553) Normal Normal BILIRUBIN (test code = 8497618445) Negative Negative NITRITE (test code = 3695560210) Negative Negative LEUK LOU (test code = 4397572793) Negative Negative RBC/HPF (test code = 4179721040) See_Comment [Automated messa ge] The system which generated this result transmitted reference range: 0 - 3 HPF. The reference range was not used to interpret this result as normal/abnormal. WBC/HPF (test code = 0437519327) See_Comment [Automated messa ge] The system which generated this result transmitted reference range: 0 - 5 HPF. The reference range was not used to interpret this result as normal/abnormal. BACTERIA (test code = 1592674158) Few Negative A MUCOUS (test code = 2467674839) Slight Negative LPF A SQ EPITH (test code = 8031860414) HPF Lab Interpretation (test code = 93393-1) Abnormal [facility] [id number] 05:08:00* Test Item Value Reference Range Interpretation Comme nts POCT PREG (test code = 1605) negative On board controls acceptable with C Line (test code = 3574) positive POCT PREG LOT # (test code = 3575) [id number] POCT PREG TEST DATE ( test code = 3576) 04-14-2021 Lab Interpretation (test cod e = 39969-6) Normal [facility]2020-[facility]-17 04:32:00* Test Item Value Reference Range Interpretation Comme nts MAGNESIUM (test code = 1563755696) 2.0 mg/dL 1.7-2.4 Lab Interpretation (test cod e = 98144-7) Normal [facility]OLIC PANEL (18732)2019-11-30 04:31:00* Test Item Value Reference Range Interpretation Comme nts NA (test code = 8076845615) 141 mmol/L 135-145 K (test code = 9845748206) 3.1 mmol/L 3.5-5 L CL (test code = 5295645432) 103 mmol/L 98-108 CO2 TOTAL (test code = 2840213114) 25 mmol/L 23-31 AGAP (test code = 8495384874) 2-16 BUN (test code = 6234834541) 10 mg/dL 7-23 GLUCOSE (test code = 4465074592) 147 mg/dL 70-110 H CREATININE (test code = 6341479831) 0.52 mg/dL 0.5-1.04 TOTAL BILI (test code = 6587170650) 0.5 mg/dL 0.1-1.1 CALCIUM (test code = 2399860686) 9.0 mg/dL 8.6-10.6 T PROTEIN (test code = 4657937649) 8.2 g/dL 6.3-8.2 ALBUMIN (test code = 0208674920) 5.0 g/dL 3.5-5 ALK PHOS (test code = 9903247980) 104 U/L 34-122 ALTv (test code = 1742-6) 27 U/L 5-35 AST(SGOT) (test code = 9443463809) 38 U/L 13-40 eGFR Calculation (Non-) (test code = 8796368070) mL/min/1.73m2 eGFR Calculation () (test code = 0127015724) mL/min/1.73m2 ELLE (test code = ELLE) Association of [...] or abnormalities in imaging tests). Lab Interpretation (test code = 70423-5) Abnormal [facility]2020-04-[facility] 04:31:00* Test Item Value Reference Range Interpretation Comme nts LIPASE (test code = 7297653251) 84 U/L 0-220 Lab Interpretation (test cod e = 32465-3) Normal [facility] HospitalCB WITH [id number] 04:20:00* Test Item Value Reference Range Interpretation Comme nts WBC (test code = 6690-2) See_Comment [Automated BizArka ge] The system which generated this result transmitted reference range: 4.30 - 11.10 10*3/?L. The reference range was not used to interpret this result as normal/abnormal. RBC (test code = 789-8) See_Comment [Automated BizArka ge] The system which generated this result transmitted reference range: 3.93 - 5.25 10*6/?L. The reference range was not used to interpret this result as normal/abnormal. HGB (test code = 718-7) 14.3 g/dL 11.6-15 HCT (test code = 4544-3) 41.2 % 35.7-45.2 MCV (test code = 787-2) 91.4 fL 80.6-95.5 MCH (test code = 785-6) 31.7 pg 25.9-32.8 MCHC (test code = 786-4) 34.7 g/dL 31.6-35.1 RDW-SD (test code = 21530-7) 40.3 fL 39-49.9 RDW-CV (test code = 788-0) 12.0 % 12-15.5 PLT (test code = 777-3) See_Comment [Automated BizArka ge] The system which generated this result transmitted reference range: 166 - 358 10*3/?L. The reference range was not used to interpret this result as normal/abnormal. MPV (test code = 28162-7) 10.5 fL 9.5-12.9 NRBC/100 WBC (test code = 3197050835) See_Comment [Automated AnaBios ssage] The system which generated this result transmitted reference range: 0.0 - 10.0 /100 WBCs. The reference range was not used to interpret this result as normal/abnormal. NRBC x10^3 (test code = 4117518310) <0.01 See_Comment [Automated me ssage] The system which generated this result transmitted reference range: 10*3/?L. The reference range was not used to interpret this result as normal/abnormal. GRAN MAT (NEUT) % (test code = 770-8) 57.7 % IMM GRAN % (test code = 8737684808) 0.40 % LYMPH % (test code = 736-9) 36.8 % MONO % (test code = 5905-5) 4.3 % EOS % (test code = 713-8) 0.5 % BASO % (test code = 706-2) 0.3 % GRAN MAT x10^3(ANC) (test code = 4191230206) 4.38 10*3/uL 1.88-7.09 IMM GRAN x10^3 (test code = 4608674231) 0.03 10*3/uL 0-0.06 LYMPH x10^3 (test code = 731-0) 2.79 10*3/uL 1.32-3.29 MONO x10^3 (test code = 742-7) 0.33 10*3/uL 0.33-0.92 EOS x10^3 (test code = 711-2) 0.04 10*3/uL 0.03-0.39 BASO x10^3 (test code = 704-7) <0.03 0.01-0.07 [facility]"
--- NOTE | 2023-08-21 13:42 | ER ---
Nurse's Notes [facility] Name: Leslie Melgoza Age: 37 yrs Sex: Female : 1985 Arrival Date: 08/21/2023 Time: 12:00 Bed IW1 Private MD: Diagnosis: Acute tonsillitis, unspecified Presentation: 08/21 12:34 Chief complaint: Patient states: sore throat, cough, chills and subjective fever X3 cm10 days. Coronavirus screen: Vaccine status: Patient reports receiving the 2nd dose of the covid vaccine. Client denies travel out of the [place] in the last 14 days. Ebola Screen: Patient denies travel to an Ebola-affected area in the 21 days before illness onset. No symptoms or risks identified at this time. Initial Sepsis Screen: Does the patient meet any 2 criteria? No. Patient's initial sepsis screen is negative. Does the patient have a suspected source of infection? No. Patient's initial sepsis screen is negative. Risk Assessment: Do you want to hurt yourself or someone else? Patient reports no desire to harm self or others. Onset of symptoms was August 21, 2023. 12:34 Method Of Arrival: Ambulatory cm10 12:34 Acuity: WESELY 4 cm10 Triage Assessment: 12:41 General: Appears in no apparent distress. comfortable, Behavior is calm, cooperative. cm10 Pain: Complains of pain in Throat. EENT: Throat is reddened has patchy exudate has enlarged tonsils Reports pain in Throat. Neuro: No deficits noted. Level of Consciousness is awake, alert, obeys commands, Oriented to person, place, time, situation, Gait is steady. Cardiovascular: No deficits noted. Denies chest pain, shortness of breath, Patient's skin is warm and dry. Respiratory: No deficits noted. Airway is patent Respiratory effort is even, unlabored, Respiratory pattern is regular, symmetrical. GI: No deficits noted. No signs and/or symptoms were reported involving the gastrointestinal system. : No deficits noted. No signs and/or symptoms were reported regarding the genitourinary system. Derm: No deficits noted. No signs and/or symptoms reported regarding the dermatologic system. Skin is intact, Skin is pink, warm \T\ dry. Musculoskeletal: No deficits noted. No signs and/or symptoms reported regarding the musculoskeletal system. Range of motion: intact in all extremities. Historical: - Allergies: 12:35 No Known Allergies; cm10 - Home Meds: 12:35 None [Active]; cm10 - PMHx: 12:35 None; cm10 - PSHx: 12:35 None; cm10 - Immunization history:: Adult Immunizations up to date. - Social history:: Smoking status: Patient denies any tobacco usage or history of. Screenin:00 [facility] ED Fall Risk Assessment (Adult) History of falling in the last 3 months, cm10 including since admission No falls in past 3 months (0 pts) Confusion or Disorientation No (0 pts). Abuse screen: Denies threats or abuse. Denies injuries from another. Nutritional screening: No deficits noted. Tuberculosis screening: No symptoms or risk factors identified. Vital Signs: 12:34 BP 129 / 91; Pulse 103; Resp 18; Temp 99.2; Pulse Ox 100% on R/A; Weight 52.16 kg; cm10 Height 5 ft. 4 in. ; Pain 10/10; 12:34 Body Mass Index 19.74 (52.16 kg, 162.56 cm) cm10 12:34 Pain Scale: Adult cm10 ED Course: 12:04 Patient arrived in ED. mg5 12:05 Ludivina Alejandra FNP is [facility]. jh7 12:05 Oscar Beasley MD is Attending Physician. jh7 12:35 Triage completed. cm10 12:35 Arm band placed on Patient placed in waiting room. cm10 12:45 Strep Sent. cm10 14:00 Patient has correct armband on for positive identification. Provided Education on: cm10 Follow-up instructions. 14:00 No provider procedures requiring assistance completed. Patient did not have IV access cm10 during this emergency room visit. Administered Medications: 12:45 Drug: Acetaminophen PO 650 mg PO once Route: PO; cm10 13:59 Follow up: Response: No adverse reaction cm10 Medication: 14:00 VIS not applicable for this client. cm10 Outcome: 13:42 Discharge ordered by . 7 14:00 Discharged to home ambulatory, with family, cm10 14:00 Condition: good 14:00 Discharge instructions given to patient, Instructed on discharge instructions, follow up and referral plans. medication usage, Demonstrated understanding of instructions, follow-up care, medications, Prescriptions given X 2, 14:00 Patient left the ED. cm10 Signatures: Ludivina Alejandra FNP FNP jh7 Elise Hoff RN RN cm10 Fani Gupta 5
--- NOTE | 2023-08-21 13:42 | EDPHYS ---
Physician Documentation [facility] Name: Leslie Melgoza Age: 37 yrs Sex: Female : 1985 Arrival Date: 08/21/2023 Time: 12:00 Bed IW1 Private MD: ED Physician Oscar Beasley HPI: 08/21 12:34 This 37 yrs old Female presents to ER via Ambulatory with complaints of Sore jh7 Throat. 12:34 The patient presents with sore throat. The patient describes throat pain as constant. jh7 Onset: The symptoms/episode began/occurred 3 day(s) ago. Associated signs and symptoms: Pertinent positives: fever, Pertinent negatives chest pain, cough, diarrhea, shortness of breath. Historical: - Allergies: 12:35 No Known Allergies; cm10 - Home Meds: 12:35 None [Active]; cm10 - PMHx: 12:35 None; cm10 - PSHx: 12:35 None; cm10 - Immunization history:: Adult Immunizations up to date. - Social history:: Smoking status: Patient denies any tobacco usage or history of. ROS: 12:34 Eyes: Negative for injury, pain, redness, and discharge, Neck: Negative for injury, jh7 pain, and swelling, Cardiovascular: Negative for chest pain, palpitations, and edema, Respiratory: Negative for shortness of breath, cough, wheezing, and pleuritic chest pain, Abdomen/GI: Negative for abdominal pain, nausea, vomiting, diarrhea, and constipation, Skin: Negative for injury, rash, and discoloration, Neuro: Negative for headache, weakness, numbness, tingling, and seizure, 12:34 Constitutional: Positive for fever, 12:34 ENT: Positive for sore throat, 12:34 All other systems are negative, Exam: 12:34 Constitutional: This is a well developed, well nourished patient who is awake, alert, jh7 and in no acute distress. Head/Face: Normocephalic, atraumatic. Neck: Trachea midline, no thyromegaly or masses palpated, and no cervical lymphadenopathy. Supple, full range of motion without nuchal rigidity, or vertebral point tenderness. No Meningismus. Cardiovascular: Regular rate and rhythm with a normal S1 and S2. No gallops, murmurs, or rubs. Normal PMI, no JVD. No pulse deficits. Respiratory: Lungs have equal breath sounds bilaterally, clear to auscultation and percussion. No rales, rhonchi or wheezes noted. No increased work of breathing, no retractions or nasal flaring. Abdomen/GI: Soft, non-tender, with normal bowel sounds. No distension or tympany. No guarding or rebound. No evidence of tenderness throughout. Back: No spinal tenderness. No costovertebral tenderness. Full range of motion. Skin: Warm, dry with normal turgor. Normal color with no rashes, no lesions, and no evidence of cellulitis. MS/ Extremity: Pulses equal, no cyanosis. Neurovascular intact. Full, normal range of motion. Neuro: Awake and alert, GCS 15, oriented to person, place, time, and situation. Motor strength 5/5 in all extremities. Sensory grossly intact. Normal gait. 12:34 ENT: Posterior pharynx: Tonsils: bilaterally enlarged, with erythema, with exudate, erythema, that is moderate, exudate, that is moderate, Vital Signs: 12:34 BP 129 / 91; Pulse 103; Resp 18; Temp 99.2; Pulse Ox 100% on R/A; Weight 52.16 kg; cm10 Height 5 ft. 4 in. ; Pain 10/10; 12:34 Body Mass Index 19.74 (52.16 kg, 162.56 cm) cm10 12:34 Pain Scale: Adult cm10 MDM: 12:05 Patient medically screened. [facility] 13:42 Differential diagnosis: apthous stomatitis, group A strep tonsillitis, pharyngitis, jh7 tonsillitis. Data reviewed: vital signs, nurses notes. I considered the following discharge prescriptions or medication management in the emergency department Medications were administered in the Emergency Department. See MAR. Counseling: I had a detailed discussion with the patient and/or guardian regarding the historical points, exam findings, and any diagnostic results supporting the discharge/admit diagnosis, to return to the emergency department if symptoms worsen or persist or if there are any questions or concerns that arise at home. Response to treatment: the patient's symptoms have mildly improved after treatment. 08/21 12:40 Order name: Strep jh7 08/21 13:12 Order name: Throat Culture EDMS Administered Medications: 12:45 Drug: Acetaminophen PO 650 mg PO once Route: PO; cm10 13:59 Follow up: Response: No adverse reaction cm10 Disposition Summary: 08/21/23 13:42 Discharge Ordered Notes: Location: Home [facility] Problem: [facility] Symptoms: are unchanged [facility] Condition: Stable [facility] Diagnosis - Acute tonsillitis, unspecified [facility] Followup: [facility] - With: Private Physician - When: 2 - 3 days - Reason: Recheck today's complaints Discharge Instructions: - Discharge Summary Sheet [facility] - Tonsillitis [facility] Forms: - Medication Reconciliation Form [facility] - Thank You Letter [facility] - Patient Portal Instructions [facility] - Leadership Thank You Letter [facility] Prescriptions: - cefdinir 300 mg Oral capsule - take 1 capsule ORAL route 2 times per day for 7 days; 14 capsule; Refills: 0, [facility] Product Selection Permitted - Medrol (Rommel) 4 mg Oral Tablets, Dose Pack - take 1 tablet ORAL route as directed - follow package instructions; 1 packet; [facility] Refills: 0, Product Selection Permitted Signatures: Dispatcher [employer] Ludivina Sutherland, INFORMATION ANALYST INFORMATION ANALYST [facility] Elise Hoff, RN RN cm10
[2023-08-21 14:19] VITALS: BP 129/91; TEMP 99.2; O2SAT 100
== END ==
LOC: ER 12:00
DX: J03.90 Acute tonsillitis, unspecified (principal)
CPT/HCPCS: 87070; 87081; 99283

== ENCOUNTER 2024-09-25 17:14 | Emergency (ER) | payer OTHER ==
--- OUTSIDE RECORDS SUMMARY | 2024-09-25 17:22 | XMS REPORT | Continuity of Care Document ---
Author Name Unknown Address [address] [facility]. [address] [place] [address] [facility] thconnect Address [address] [facility] [address] [place] [address] Care Team Providers Care Metrology Engineer Name Role Phone Huy Vazquez Primary Care Physician [phone] ZEESHAN SIMMONS Attending Clinician Unavailable AKINKEVIN FENG Attending Clinician Unavail able Akinsiloni WHKevin DIAZ Attending Clinician + JAMES GORMAN Attending Clinician Unavailable JAMES GORMAN Attending Clinician Unavailable PRAVEENA HOUSER Attending Clinician Unavailable PRAVEENA HOUSER Attending Clinician Unavailable Praveena Houser MD Attending Clinician [phone] James Gorman MD Attending Clinician [phone] Reny Husain MD Attending Clinician [phone] Riddhi Chow MD Attending Clinicia n SOTERO CYR Attending Clinician Unavailable LISA SANTILLAN Attending Clinician Unavailable LISA SANTILLAN Attending Clinician Unavailable LISA SANTILLAN Attending Clinician Unavailable Ultrasound, Ang-Mfphil Attending Clinician UnavailLisa Mccann MD Attending Clinician [phone] AkinsiKevin Barba Attending Clinician + Nurse, Gokul Rmchgrace Rgv Cp[facility] Obgyn Attending Clini [place] Unavailable MARYBETH MENA Attending Clinician UnavailMarybeth Chen CNM Attending Clinician Doctor Unassigned, Bangs Attending Clinician U navailable Visit, Nerisgrace Nurse Attending Clinician Unava ilCarloz Alexis Attending Clinician [phone] CARLOZ ESTRADA Attending Clinician Unavailab Edward Mohr Attending Clinician [phone] EDWARD RODRIGUEZ Attending Clinician Unavailabl e Provider, Abel Temp Attending Clinician Belkys vailable Lab, Adc Fam Pob I Attending Clinician Unavailab Kit Wen Attending Clinician [phone] KIT BAILEY Attending Clinician Unavailable Sasha Carpenter Attending Clinician [phone] PRAVEENA HOUSER Admitting Clinician Unavailable Praveena Houser MD Admitting Clinician [phone] Payers Payer Name Policy Type Policy Number Effective Date Expirati on Date Source [employer] [id number] 2016 00:00:00 [employer] 0-100% [id number] 2024 00:00:00 [employer] TP30 EMERGENCY MEDICAID [id number] 2018 00:00:00 2018 00:00:00 [facility] MOM [employer] FPL [id number] 2024 00:00:00 2024 00:00:00 Problems Condition Name Condition Details Condition Category Status Onset Date Resolution Date Last Treatment Date Treating Clinician Comments Source Routine follow-up Routine follow-up Disease Active 09-07 00:00: 00 [facility] Anxiety and depression Anxiety and depression Disease Active 08-21 00:00: 00 [facility] History of tubal ligation History of tubal ligation Disease Active 2023-08 00:00: 00 [facility] Need for HPV vaccinatio n Need for HPV vaccinatio n Disease Active 09-14 00:00: 00 [facility] Bacterial vaginosis Bacterial vaginosis Disease Active 14 00:00: 00 [facility] Encounter for initial prescripti on of intrauteri ne contracept raul device (IUD) Encounter for initial prescripti on of intrauteri ne contracept raul device (IUD) Disease Active 11-01 00:00: 00 [facility] 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 Disease Active 11-01 00:00: 00 [facility] Well woman exam Well woman exam Disease Active 2016-08 00:00: 00 [facility] Encounter for contracept raul management , unspecifie d type Encounter for contracept raul management , unspecifie d type Disease Active 2016-08 00:00: 00 [facility] BMI 26.0-26.9, adult BMI 26.0-26.9, adult Disease Active 05-09 00:00: 00 [facility] Acute blood loss anemia Acute blood loss anemia Disease Resolve d 1- 00:00: 00 2024-09-07 00:00:00 2024-09-07 10:46:31 [facility] Anxiety Anxiety Disease Resolve d 1- 00:00: 00 2024-09-07 00:00:00 2024-09-07 10:46:33 [facility] (spontaneo us vaginal delivery) (spontaneo us vaginal delivery) Disease Resolve d 2023-08 2-31 00:00: 00 2024-09-07 00:00:00 2024-09-07 10:46:52 [facility] 39 weeks gestation of 39 weeks gestation of Disease Resolve d 2023-1 2-30 00:00: 00 2024-09-07 00:00:00 2024-09-07 10:46:30 [facility] Supervisio n of high-risk of elderly multigravi da Supervisio n of high-risk of elderly multigravi da Disease Resolve d 5-22 00:00: 00 2024-09-07 00:00:00 2024-09-07 10:46:51 [facility] Multiparit y Multiparit y Disease Resolve d 0 5-22 00:00: 00 2024-09-07 00:00:00 2024-09-07 10:46:37 [facility] History of delivery History of delivery Disease Resolve d 0 01-03 00:00: 00 2024-09-07 00:00:00 2024-09-07 10:46:36 Overview: Formattin g of this note might be different from the original. 2009 [facility] History of cholestasi s during History of cholestasi s during Disease Resolve d 0 01-03 00:00: 00 2024-09-07 00:00:00 2024-09-07 10:46:35 Overview: Formattin g of this note might be different from the original. With 2017 [facility] Single live Single live Disease Resolve d 0 9-26 00:00: 00 2024-09-07 00:00:00 2024-09-07 10:46:40 [facility] Other general counseling and advice for contracept raul management Other general counseling and advice for contracept raul management Disease Resolve d 2022- 0-21 00:00: 00 2024-01-04 00:00:00 2024-01-04 13:25:10 [facility] Elevated blood pressure reading without diagnosis of hypertensi on Elevated blood pressure reading without diagnosis of hypertensi on Disease Resolve d 2020-0 5-19 00:00: 00 2024-01-04 00:00:00 2024-01-04 13:28:14 [facility] Depo-Prove ra contracept raul status Depo-Prove ra contracept raul status Disease Resolve d 2019-0 5-14 00:00: 00 2024-01-04 00:00:00 2024-01-04 13:25:06 [facility] 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 Disease Resolve d 2018-0 3-20 00:00: 00 2024-01-04 00:00:00 2024-01-04 13:25:16 [facility] Screening examinatio n for STD (sexually transmitte d disease) Screening examinatio n for STD (sexually transmitte d disease) Disease Resolve d 20 00:00: 00 2024-01-04 00:00:00 2024-01-04 13:25:17 [facility] Vaginal irritation Vaginal irritation Disease Resolve d 2016-08 00:00: 00 2024-01-04 00:00:00 2024-01-04 13:25:26 [facility] Encounter for contracept raul management , unspecifie d type Encounter for contracept raul management , unspecifie d type Disease Resolve d 2016-08 00:00: 00 2023-06-04 00:00:00 2023-06-04 11:08:29 [facility] BMI 26.0-26.9, adult BMI 26.0-26.9, adult Disease Resolve d 05-09 00:00: 00 2023-06-04 00:00:00 2023-06-04 11:07:57 [facility] Obesity, unspecifie d classifica tion, unspecifie d obesity type, unspecifie d whether serious comorbidit y present Obesity, unspecifie d classifica tion, unspecifie d obesity type, unspecifie d whether serious comorbidit y present Disease Resolve d 03-15 00:00: 00 2023-06-04 00:00:00 2023-06-04 11:07:56 [facility] Encounter for surveillan ce of injectable contracept raul Encounter for surveillan ce of injectable contracept raul Disease Resolve d 02-10 00:00: 00 2023-06-04 00:00:00 2023-06-04 11:08:25 [facility] mood disturbanc e mood disturbanc e Disease Resolve d 09-13 00:00: 00 2018-11-01 00:00:00 2018-11-01 12:51:09 [facility] mood disturbanc e mood disturbanc e Disease Resolve d 2019-0 1-30 00:00: 00 2018-11-01 00:00:00 2018-11-01 12:51:09 [facility] care and examinatio n of lactating mother care and examinatio n of lactating mother Disease Resolve d 2016- 0-18 00:00: 00 2018-11-01 00:00:00 2018-11-01 12:51:04 [facility] Former smoker Former smoker Disease Resolve d 2013-08 1-05 00:00: 00 2018-11-01 00:00:00 2018-11-01 12:51:06 [facility] Single live Single live Disease Resolve d 2018-0 1-27 00:00: 00 2018-10-04 00:00:00 2018-10-04 11:02:46 [facility] 39 weeks gestation of 39 weeks gestation of Disease Resolve d 2018-0 1-26 00:00: 00 2018-10-04 00:00:00 2018-10-04 11:02:44 [facility] Pruritus of , antepartum , third trimester Pruritus of , antepartum , third trimester Disease Resolve d 2018-0 1-16 00:00: 00 2018-10-04 00:00:00 2018-10-04 11:02:41 [facility] UTI in UTI in Disease Resolve d 2017-08- 00:00: 00 2018-10-04 00:00:00 2018-10-04 11:02:23 [facility] Dysuria during Dysuria during Disease Resolve d 2017-08- 00:00: 00 2018-10-04 00:00:00 2018-10-04 11:02:27 [facility] Supervisio n of high-risk Supervisio n of high-risk Disease Resolve d 0 6-27 00:00: 00 2018-10-04 00:00:00 2018-10-04 11:02:21 [facility] Multiparit y Multiparit y Disease Resolve d 0 6-27 00:00: 00 2018-10-04 00:00:00 2018-10-04 11:02:37 [facility] History of delivery History of delivery Disease Resolve d 6-27 00:00: 00 2018-10-04 00:00:00 2018-10-04 11:02:52 [facility] (normal spontaneou s vaginal delivery) (normal spontaneou s vaginal delivery) Disease Resolve d 9- 00:00: 00 2018-10-04 00:00:00 2018-10-04 11:02:34 [facility] Labor and delivery, indication for care Labor and delivery, indication for care Disease Resolve d 9 00:00: 00 2018-10-04 00:00:00 2018-10-04 11:02:30 [facility] 26 weeks gestation of 26 weeks gestation of Disease Resolve d 2017-08 00:00: 00 2018-08-23 00:00:00 2018-08-23 16:08:09 [facility] Nausea and vomiting during Nausea and vomiting during Disease Resolve d 2017-08 0-24 00:00: 00 2018-08-23 00:00:00 2018-08-23 16:08:12 [facility] Nausea and vomiting during Nausea and vomiting during Disease Resolve d 2017-08 0-24 00:00: 00 2018-08-23 00:00:00 2018-08-23 16:08:12 [facility] Pelvic pain affecting in second trimester, antepartum Pelvic pain affecting in second trimester, antepartum Disease Resolve d 2017-08 00:00: 00 2018-06-16 00:00:00 2018-06-16 17:24:22 [facility] Ankle pain Ankle pain Disease Resolve d 2016-08 00:00: 00 2018-02-08 00:00:00 2018-02-08 10:08:49 [facility] Cholestasi s during Cholestasi s during Disease Resolve d 9- 00:00: 00 2017-06-28 00:00:00 2017-06-28 11:45:30 [facility] Cholecysti tis Cholecysti tis Disease Resolve d 8 00:00: 00 2017-06-01 00:00:00 2017-06-01 10:47:59 [facility] Itching Itching Disease Resolve d 04-08 00:00: 00 2017-06-01 00:00:00 2017-06-01 10:47:53 [facility] Nausea and vomiting during Nausea and vomiting during Disease Resolve d 04-01 00:00: 00 2017-06-01 00:00:00 2017-06-01 10:47:46 [facility] Nausea and vomiting during Nausea and vomiting during Disease Resolve d 04-01 00:00: 00 2017-06-01 00:00:00 2017-06-01 10:47:46 [facility] Hypokalemi a Hypokalemi a Disease Resolve d 04-01 00:00: 00 2017-06-01 00:00:00 2017-06-01 10:47:50 [facility] Food poisoning Food poisoning Disease Resolve d 04-01 00:00: 00 2017-06-01 00:00:00 2017-06-01 10:51:21 [facility] Supervisio n of elderly primigravi da, antepartum , third trimester Supervisio n of elderly primigravi da, antepartum , third trimester Disease Resolve d 815 00:00: 00 2017-06-01 00:00:00 2017-06-01 10:47:43 [facility] Cough Cough Disease Resolve d 3-22 00:00: 00 2017-06-01 00:00:00 2017-06-01 10:47:32 [facility] Abnormal maternal glucose tolerance, antepartum Abnormal maternal glucose tolerance, antepartum Disease Resolve d 2-23 00:00: 00 2017-06-01 00:00:00 2017-06-01 10:47:32 [facility] Nausea and vomiting in prior to 22 weeks gestation Nausea and vomiting in prior to 22 weeks gestation Disease Resolve d 2-22 00:00: 00 2017-06-01 00:00:00 2017-06-01 10:47:14 [facility] History of labor History of labor Disease Resolve d 2016-0 2- 00:00: 00 2017-06-01 00:00:00 2017-06-01 10:47:11 [facility] Nausea and vomiting in prior to 22 weeks gestation Nausea and vomiting in prior to 22 weeks gestation Disease Resolve d 2016-0 2-22 00:00: 00 2017-06-01 00:00:00 2017-06-01 10:47:14 [facility] Other current maternal conditions classifiab le elsewhere, antepartum Other current maternal conditions classifiab le elsewhere, antepartum Disease Resolve d 2016-0 10-06 00:00: 00 2017-06-01 00:00:00 2022-02-28 00:44:29 [facility] Supervisio n of elderly primigravi da, antepartum , second trimester Supervisio n of elderly primigravi da, antepartum , second trimester Disease Resolve d 0 4-19 00:00: 00 2017-03-29 00:00:00 2017-03-29 08:33:39 [facility] High risk , antepartum High risk , antepartum Disease Resolve d 10-06 00:00: 00 2016-11-03 00:00:00 2016-11-03 09:15:27 [facility] Well woman exam Well woman exam Disease Resolve d 02-10 00:00: 00 2016-10-06 00:00:00 2016-10-06 11:18:32 [facility] Normal delivery Normal delivery Disease Resolve d 0 5-16 00:00: 00 2016-02-11 00:00:00 2016-02-11 09:31:59 [facility] High-risk High-risk Disease Resolve d 0 5-14 00:00: 00 2016-02-11 00:00:00 2016-02-11 09:31:54 [facility] GBS (group B Streptococ cus carrier), +RV culture, currently GBS (group B Streptococ cus carrier), +RV culture, currently Disease Resolve d 0 5-06 00:00: 00 2016-02-11 00:00:00 2016-02-11 09:31:52 [facility] Constipati on in , second trimester Constipati on in , second trimester Disease Resolve d 2014-0 2-04 00:00: 00 2016-02-11 00:00:00 2016-02-11 09:31:48 [facility] Nausea and vomiting in prior to 22 weeks gestation Nausea and vomiting in prior to 22 weeks gestation Disease Resolve d 2013-08 00:00: 00 2016-02-11 00:00:00 2016-02-11 09:31:56 [facility] Nausea and vomiting in prior to 22 weeks gestation Nausea and vomiting in prior to 22 weeks gestation Disease Resolve d 2013-08 00:00: 00 2016-02-11 00:00:00 2016-02-11 09:31:56 [facility] Need for Tdap vaccinatio n Need for Tdap vaccinatio n Disease Resolve d 03-26 00:00: 00 2016-02-11 00:00:00 2022-02-28 00:25:54 [facility] Normal spontaneou s vaginal delivery Normal spontaneou s vaginal delivery Disease Resolve d 04-02 00:00: 00 2013-03-22 00:00:00 2013-03-22 12:45:59 [facility] Insufficie nt care Insufficie nt care Disease Resolve d 04-02 00:00: 00 2010-04-03 00:00:00 2010-04-03 08:19:05 [facility] 35-36 completed weeks of gestation( 765.28) 35-36 completed weeks of gestation( 765.28) Disease Resolve d 04-02 00:00: 00 2010-04-02 00:00:00 [facility] Other threatened labor, antepartum Other threatened labor, antepartum Disease Resolve d 04-02 00:00: 00 2010-04-02 00:00:00 [facility] Allergies, Adverse Reactions, Alerts Allergy Name Allergy Type Status Severity Reaction(s) Onset Date Inactive Date Treating Clinician Comments Source NO KNOWN ALLERGIE S Drug Class Active [facility] Social History Social Habit Start Date Stop Date Quantity Comments Source ASSERTION 2023-11-27 00:00:00 [facility] Sexual orientation [facility] Alcoholic beverage intake 2024-09-07 00:00:00 2024-09-07 00:00:00 Ex-drinker (finding) [facility] History of Social function 2024-03-07 00:00:00 2024-03-07 00:00:00 [facility] Tobacco use and exposure 2024-02-02 00:00:00 2024-02-02 00:00:00 Smokeless tobacco non-user [facility] Alcohol intake 2023-09-14 00:00:00 2023-09-14 00:00:00 Ex-drinker (finding) [facility] Exposure to SARS-CoV-2 (event) 2022-12-19 00:00:00 2022-12-29 15:09:00 Not sure [facility] History of tobacco use 2014-03-15 00:00:00 Cigarette Smoker [facility] Alcohol Comment 2013-03-22 00:00:00 2013-03-22 00:00:00 socially only [facility] Sex assigned at 1985 00:00:00 1985 00:00:00 [facility] Smoking Status Start Date Stop Date Source Ex-smoker 2024-02-02 00:00:00 2024-02-02 00:00:00 [facility] Medications Ordered Medication Name Filled Medication Name Start Date Stop Date Current Medication? Ordering Clinician Indication Dosage Frequency Signature (SIG) Comments Components Source hydrOXYzine (ATARAX) tablet 10 mg 08-15 06:00: 00 08-16 00:59 :02 No 10mg 10 mg, Oral, Q6H, First dose on Tue08/15/24 at 0000, Until Discontinu ed, Routine [facility] ibuprofen 800 mg tablet 08-15 00:00: 00 Yes [id number] 800mg Take 1 tablet by mouth every 8 (eight) hours as needed (pain). Take with food or milk. [facility] Iron Fum & P-FA-Vit B & C No.9 (INTEGRA PLUS) 125 mg iron- 1 mg Cap 08-15 00:00: 00 Yes [id number] 1{capsu le} Take 1 capsule by mouth daily. [facility] hydrOXYzine 10 mg tablet 08-15 00:00: 00 09-15 05:59 :00 Yes [id number] 10mg Take 1 tablet by mouth every 6 (six) hours for 30 days. [facility] oxyCODONE 5 mg immediate release tablet 08-15 00:00: 00 08-23 05:59 :00 Yes [id number] 5mg Take 1 tablet by mouth every 6 (six) hours as needed for Pain (scale 7-10) for up to 7 days. Indication s: acute pain [facility] naloxone (NARCAN) injection 0.4 mg 2023-08 14:54: 58 08-15 22:53 :56 No .4mg 0.4 mg, Slow IV Push, PRN - SEE INSTRUCTIO NS, Starting on Tue08/14/24 at 0854, Until Tue08/15/24 at 1653, Routine, Sedation/R espiratory Depression , Analgesia recovery [facility] ketorolac (TORADOL) injection 15 mg 2023-08 14:54: 57 08-15 22:53 :56 No 15mg 15 mg, Slow IV Push, Q6HPRN, 4 doses, Starting on Tue08/14/24 at 0854, Until Tue08/15/24 at 1653, Routine, Pain (scale 1-3) [facility] bupivacaine (preserv free) (SENSORCAIN E MPF) 0.25 % (2.5 mg/mL) injection 2023-08 14:15: 00 08-16 00:59 :02 No PRN, Starting on Tue08/14/24 at 0815, Until Tue08/15/24 at 1859, Routine, Intra-op [facility] oxyCODONE immediate release tablet 5 mg 2023-08 14:05: 22 08-15 22:53 :56 No 5mg 5 mg, Oral, Q6HPRN, Starting on Tue08/14/24 at 0805, Until Tue08/15/24 at 1653, Routine, Pain (scale 7-10), 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 Restricted medication : JAMES GORMAN [facility] ibuprofen (IBU) tablet 600 mg 2023-08 06:45: 00 08-15 22:53 :56 No 600mg 600 mg, Oral, Q8HA1, First dose on Tue08/14/24 at 0045, Until Discontinu ed, Routine [facility] acetaminoph en (TYLENOL) tablet 650 mg 2023-08 04:00: 00 08-15 22:53 :56 No 650mg 650 mg, Oral, Q8H, First dose on Tue08/13/24 at 2200, Until Discontinu ed, Routine [facility] rho(D) immune globulin (RHOPHYLAC) injection 300 mcg 2023-08 03:56: 21 08-15 22:53 :56 No 300ug [facility] diphenhydrA MINE (BENADRYL) tablet 25 mg 2023-08 03:56: 16 08-15 22:53 :56 No 25mg [facility] ondansetron (ZOFRAN (PF)) injection 4 mg 2023-08 03:56: 16 08-15 22:53 :56 No 4mg [facility] simethicone (GAS RELIEF (SIMETHICON E)) chewable tablet 160 mg 2023-08 03:56: 16 08-15 22:53 :56 No 160mg 160 mg, Oral, PC+HSPRN, Starting on Tue08/13/24 at 2156, Until Tue08/15/24 at 1653, Routine, Gas [facility] docusate (COLACE) capsule 200 mg 2023-08 03:56: 16 08-15 22:53 :56 No 200mg 200 mg, Oral, QDAILYPRN, Starting on Tue08/13/24 at 2156, Until Tue08/15/24 at 1653, Routine, Constipati on [facility] magnesium hydroxide (MILK OF MAGNESIA) 400 mg/5 mL suspension 30 mL 2023-08 03:56: 16 08-15 22:53 :56 No 30mL 30 mL, Oral, QDAILYPRN, Starting on Tue08/13/24 at 2156, Until Tue08/15/24 at 1653, Routine, Constipati on [facility] benzocaine- menthol (DERMOPLAST ) 20-0.5 % topical spray 2023-08 03:56: 16 08-15 22:53 :56 No [facility] ropivacaine 0.2 % (NAROPIN (PF)) epidural infusion 2023-08 19:37: 00 08-14 04:26 :09 No Epidural, CONTINUOUS PRN, Starting on Tue08/13/24 at 1337, Until Tue08/13/24 at 2226, Routine, Intra-op [facility] lidocaine-e pinephrine (XYLOCAINE W/EPINEPHRI NE) 1.5 %-1:200,000 injection 2023-08 19:33: 00 08-14 04:26 :09 No Epidural, ONCE INTRA PROCEDURE, Starting on Tue08/13/24 at 1333, Until Tue08/13/24 at 2226, Routine, Intra-op [facility] sodium citrate-cit alejo acid (BICITRA) 500-334 mg/5 mL solution 30 mL 2023-08 17:43: 20 08-13 19:20 :00 No 30mL 30 mL, Oral, PRE-PROCED URE ONCE, 1 dose, Starting on Tue08/13/24 at 1143, Until Tue08/13/24 at 1320, Routine, Surgery/Pr ocedure [facility] lactated ringers IV infusion 250 mL 2023-08 17:43: 20 08-13 19:50 :00 No 250mL at 999 mL/hr, 250 mL, IV Infusion, PRN - SEE RHODA NS, 1 dose, Starting on Tue08/13/24 at 1143, Until Tue08/13/24 at 1350, Routine [facility] D5W-LR IV infusion 1,000 mL 2023-08 16:18: 06 08-14 03:56 :20 No 1000mL at 1-75 mL/hr, IV Infusion, TITRATE, Starting on Tue08/13/24 at 1018, Until Tue08/13/24 at 2156, Routine [facility] hydrOXYzine 25 mg tablet 2023-08 00:00: 00 08-02 05:59 :00 Yes [id number] 25mg Take 1 tablet by mouth 3 (three) times daily for 7 days. [facility] fluconazole (DIFLUCAN) 150 mg tablet 04-23 00:00: 00 04-24 04:59 :00 No [id number] 150mg Take 1 tablet by mouth once now for 1 dose. [facility] fluconazole (DIFLUCAN) 150 mg tablet 03-21 00:00: 00 03-22 04:59 :00 No [id number] 150mg Take 1 tablet by mouth once now for 1 dose. [facility] lidocaine (XYLOCAINE) 2 % mucosal jelly 5 mL 09-14 17:00: 00 09-14 17:00 :00 No [id number] 5mL [facility] trichloroac etic acid 85 % solution 09-14 17:00: 00 09-14 17:00 :00 No [id number] [facility] metroNIDAZO LE 500 mg tablet 09-14 00:00: 00 09-22 05:59 :00 No [id number] 500mg Take 1 tablet by mouth 2 (two) times daily for 7 days. [facility] TAKE 1 CAPSULE BY MOUTH TWICE DAILY FOR 7 DAYS 08-21 00:00: 00 Yes Abisai Maravilla TAKE TABLETS BY MOUTH DIRECTED ON PACKAGE 08-21 00:00: 00 Yes Abisai Maravilla TAKE 2 TABLETS EVERY 4-6 HOURS NEEDED FOR PAIN RELIEF. 2022-08 00:00: 12-01 00:00 :00 No [id number] Abisai Maravilla TAKE 1 TABLET 3 TIMES DAILY NEEDED FOR MUSCLE SPASM. 2022-08 00:00: 00 12-01 00:00 :00 No 10 Abisai Maravilla TAKE 1 TABLET EVERY 8 HOURS NEEDED. 10-05 00:00: 00 12-01 00:00 :00 No 800 Abisai Maravilla APPLY A SMALL AMOUNT 3 TIMES DAILY DIRECTED. 10-05 00:00: 00 12-01 00:00 :00 No 1 Abisai Maravilla medroxyPROG ESTERone (DEPO-PROVE RA) syringe 150 mg 09-06 18:30: 00 05-16 17:29 :00 No [id number] 150mg [facility] No known medications 08-23 09:50: 35 No No known medication [facility] No known medications 2021-08 12:04: 43 No No known medication [facility] azithromyci n 250 mg tablet 03-06 00:00: 00 Yes mg Abisai Maravilla Bromfed DM 2 mg-30 mg-10 mg/5 mL oral syrup 03-06 00:00: 00 Yes 10mg/5 mL Abisai Maravilla No known medications 12-31 15:04: 49 No No known medication [facility] medroxyPROG ESTERone (DEPO-PROVE RA) injection 150 mg 12-26 15:00: 00 09-09 19:16 :00 No [id number] 150mg [facility] metroNIDAZO LE 500 mg tablet 5 00:00: 00 01-03 04:59 :00 No [id number] 500mg Take 1 tablet by mouth 2 (two) times daily for 7 days. [facility] ondansetron (ZOFRAN (PF)) injection 4 mg 11-29 07:15: 11-29 06:14 :00 No 4mg 4 mg, Slow IV Push, ONCE, 1 dose, Tue11/30/19 at 0215, MARYANN [facility] famotidine 20 mg in NS 50 ml (PEPCID) 20 mg/50 mL Piggyback 20 mg 11-29 07:15: 00 11-29 06:38 :00 No 20mg 20 mg, IV Piggyback, ONCE, 1 dose, 11/30/19 at 0215, 50 mL [facility] maalox:diph enhydrAMINE :lidocaine 2 % viscous 1:1:1 ([facility]) oral suspension 15 mL 11-29 06:00: 00 11-29 04:59 :00 No 15mL 15 mL, Oral (Swish & Swallow), ONCE, 1 dose, Tue11/30/19 at 0100, Routine [facility] NaCl 0.9% (NS) bolus infusion 1,000 mL 11-29 05:15: 00 11-29 06:38 :00 No 1000mL at 999 mL/hr, 1,000 mL, IV Infusion, ONCE, 1 dose, 11/30/19 at 0015, STAT [facility] morpHINE injection 4 mg 11-29 05:15: 00 11-29 04:18 :00 No 4mg 4 mg, Slow IV Push, ONCE, 1 dose, 11/30/19 at 0015, Routine [facility] ondansetron (ZOFRAN (PF)) injection 4 mg 11-29 05:15: 11-29 04:18 :00 No 4mg 4 mg, Slow IV Push, ONCE, 1 dose, 11/30/19 at 0015, MARYANN [facility] famotidine (PEPCID) 40 mg tablet 11-29 00:00: 00 12-26 00:00 :00 No [id number] 40mg Take 1 tablet by mouth daily. [facility] ondansetron (ZOFRAN ODT) 4 mg disintegrat ing tablet 11-29 00:00: 00 12-26 00:00 :00 No [id number] 4mg Take 1 tablet by mouth every 8 (eight) hours as needed for Nausea and Vomiting (N/V). [facility] ESTERone (DEPO-PROVE RA) injection 150 mg 2-19 17:30: 00 10-03 16:29 :00 No 150mg [facility] medroxyPROG ESTERone (DEPO-PROVE RA) injection 150 mg 3-20 16:30: 00 10-03 17:29 :00 No [id number] 150mg [facility] No known [facility] No [facility] No known medications No Un thor [facility] No known medications No Un thor [facility] No known medications No Un thor [facility] Immunizations Ordered Immunization Name Filled Immunization Name Date Status Comments Source TDAP 2024-05-30 00:00:00 Completed Flu Injectable MDCK Pres-Free (FLUCELVAX) 2024-05-16 00:00:00 Completed Flu Injectable [facility] Pres-Free (FLUCELVAX) 2024-05-16 00:00:00 Completed HPV9 2023-10-20 00:00:00 Completed HPV9 2023-10-20 00:00:00 Completed HPV9 2023-09-14 00:00:00 Completed HPV9 2023-09-14 00:00:00 Completed Moderna COVID-19 Vaccine Moderna COVID-19 Vaccine 2021-07-06 00:00:00 Completed [facility] Influenza Virus Vaccine Quad .5 mL IM 6+ MO (FLUZONE/FLULAVAL/F LUARIX) 2020-06-17 00:00:00 Completed Influenza Virus Vaccine Quad .5 mL IM 6+ MO (FLUZONE/FLULAVAL/F LUARIX) 2020-06-17 00:00:00 Completed [facility] Influenza Virus Vaccine Quad .5 mL IM 6+ MO 2020-06-17 00:00:00 Completed [facility] Influenza Virus Vaccine Quad .5 mL IM 6+ MO 2020-06-17 00:00:00 Completed [facility] Influenza Virus Vaccine Quad .5 mL IM 6+ MO 2020-06-17 00:00:00 Completed [facility] Influenza Virus Vaccine Quad .5 mL IM 6+ MO 2020-06-17 00:00:00 Completed [facility] Influenza Virus Vaccine Quad .5 mL IM 6+ MO 2020-06-17 00:00:00 Completed [facility] Influenza Virus Vaccine Quad .5 mL IM 6+ MO 2020-06-17 00:00:00 Completed [facility] Influenza Virus Vaccine Quad .5 mL IM 6+ MO 2020-06-17 00:00:00 Completed [facility] Influenza Virus Vaccine Quad .5 mL IM 6+ MO 2020-06-17 00:00:00 Completed [facility] Influenza Virus Vaccine Quad .5 mL IM 6+ MO 2020-06-17 00:00:00 Completed [facility] Influenza Virus Vaccine Quad .5 mL IM 6+ MO 2020-06-17 00:00:00 Completed [facility] Influenza Virus Vaccine Quad .5 mL IM 6+ MO 2020-06-17 00:00:00 Completed [facility] Influenza Virus Vaccine Quad .5 mL IM 6+ MO 2020-06-17 00:00:00 Completed [facility] Influenza Virus Vaccine Quad .5 mL IM 6+ MO 2018-06-28 00:00:00 Completed [facility] TDAP (ADACEL) VACCINE 2018-06-28 00:00:00 Completed [facility] Influenza Virus Vaccine Quad .5 mL IM 6+ MO (FLUZONE/FLULAVAL/F LUARIX) 2018-06-28 00:00:00 Completed [facility] TDAP (ADACEL) VACCINE 2018-06-28 00:00:00 Completed Influenza Virus Vaccine Quad .5 mL IM 6+ MO (FLUZONE/FLULAVAL/F LUARIX) 2018-06-28 00:00:00 Completed [facility] TDAP (ADACEL) VACCINE 2018-06-28 00:00:00 Completed Influenza Virus Vaccine Quad .5 mL IM 6+ MO 2018-06-28 00:00:00 Completed [facility] TDAP (ADACEL) VACCINE 2018-06-28 00:00:00 Completed [facility] Influenza Virus Vaccine Quad .5 mL IM 6+ MO 2018-06-28 00:00:00 Completed [facility] TDAP (ADACEL) VACCINE 2018-06-28 00:00:00 Completed [facility] Influenza Virus Vaccine Quad .5 mL IM 6+ MO 2018-06-28 00:00:00 Completed [facility] TDAP (ADACEL) VACCINE 2018-06-28 00:00:00 Completed [facility] Influenza Virus Vaccine Quad .5 mL IM 6+ MO 2018-06-28 00:00:00 Completed [facility] TDAP (ADACEL) VACCINE 2018-06-28 00:00:00 Completed [facility] Influenza Virus Vaccine Quad .5 mL IM 6+ MO 2018-06-28 00:00:00 Completed [facility] TDAP (ADACEL) VACCINE 2018-06-28 00:00:00 Completed [facility] Influenza Virus Vaccine Quad .5 mL IM 6+ MO 2018-06-28 00:00:00 Completed [facility] TDAP (ADACEL) VACCINE 2018-06-28 00:00:00 Completed [facility] Influenza Virus Vaccine Quad .5 mL IM 6+ MO 2018-06-28 00:00:00 Completed [facility] TDAP (ADACEL) VACCINE 2018-06-28 00:00:00 Completed [facility] Influenza Virus Vaccine Quad .5 mL IM 6+ MO 2018-06-28 00:00:00 Completed [facility] TDAP (ADACEL) VACCINE 2018-06-28 00:00:00 Completed [facility] Influenza Virus Vaccine Quad .5 mL IM 6+ MO 2018-06-28 00:00:00 Completed [facility] TDAP (ADACEL) VACCINE 2018-06-28 00:00:00 Completed [facility] Influenza Virus Vaccine Quad .5 mL IM 6+ MO 2018-06-28 00:00:00 Completed [facility] TDAP (ADACEL) VACCINE 2018-06-28 00:00:00 Completed [facility] Influenza Virus Vaccine Quad .5 mL IM 6+ MO 2018-06-28 00:00:00 Completed [facility] TDAP (ADACEL) VACCINE 2018-06-28 00:00:00 Completed [facility] Influenza Virus Vaccine Quad .5 mL IM 6+ MO 2018-06-28 00:00:00 Completed [facility] TDAP (ADACEL) VACCINE 2018-06-28 00:00:00 Completed [facility] Influenza Virus Vaccine Quad .5 mL IM 6+ MO 2018-06-28 00:00:00 Completed [facility] TDAP (ADACEL) VACCINE 2018-06-28 00:00:00 Completed [facility] Influenza Virus Vaccine Quad .5 mL IM 6+ MO 2018-06-28 00:00:00 Completed [facility] TDAP (ADACEL) VACCINE 2018-06-28 00:00:00 Completed [facility] Influenza Virus Vaccine Quad .5 mL IM 6+ MO 2018-06-28 00:00:00 Completed [facility] TDAP (ADACEL) VACCINE 2018-06-28 00:00:00 Completed [facility] Influenza Virus Vaccine Quad .5 mL IM 6+ MO 2018-06-28 00:00:00 Completed [facility] TDAP (ADACEL) VACCINE 2018-06-28 00:00:00 Completed [facility] Tdap 2017-03-01 00:00:00 Completed [facility] TDAP 2017-03-01 00:00:00 Completed [facility] TDAP 2017-03-01 00:00:00 Completed [facility] Tdap 2017-03-01 00:00:00 Completed [facility] TDAP 2017-03-01 00:00:00 Completed [facility] TDAP 2017-03-01 00:00:00 Completed [facility] TDAP 2017-03-01 00:00:00 Completed [facility] TDAP 2017-03-01 00:00:00 Completed [facility] TDAP 2017-03-01 00:00:00 Completed [facility] TDAP 2017-03-01 00:00:00 Completed [facility] TDAP 2017-03-01 00:00:00 Completed [facility] TDAP 2017-03-01 00:00:00 Completed [facility] TDAP 2017-03-01 00:00:00 Completed [facility] Tdap 2017-03-01 00:00:00 Completed [facility] TDAP 2017-03-01 00:00:00 Completed [facility] TDAP 2017-03-01 00:00:00 Completed [facility] TDAP 2017-03-01 00:00:00 Completed [facility] TDAP 2017-03-01 00:00:00 Completed [facility] Tdap 2017-03-01 00:00:00 Completed [facility] Influenza, split virus, trivalent, PF (AFLURIA/FLUARIX/FL ULAVAL/FLUZONE) 2016-08-19 00:00:00 Completed [facility] Influenza, split virus, trivalent, PF (AFLURIA/FLUARIX/FL ULAVAL/FLUZONE) 2016-08-19 00:00:00 Completed [facility] Influenza, seasonal, inj Influenza, seasonal, inj 2016-08-19 00:00:00 Completed [facility] Tdap 2014-10-16 00:00:00 Completed [facility] TDAP 2014-10-16 00:00:00 Completed TDAP 2014-10-16 00:00:00 Completed Tdap 2014-10-16 00:00:00 Completed [facility] TDAP 2014-10-16 00:00:00 Completed [facility] TDAP 2014-10-16 00:00:00 Completed [facility] TDAP 2014-10-16 00:00:00 Completed [facility] TDAP 2014-10-16 00:00:00 Completed [facility] TDAP 2014-10-16 00:00:00 Completed [facility] TDAP 2014-10-16 00:00:00 Completed [facility] TDAP 2014-10-16 00:00:00 Completed [facility] TDAP 2014-10-16 00:00:00 Completed [facility] Tdap 2014-10-16 00:00:00 Completed [facility] TDAP 2014-10-16 00:00:00 Completed [facility] TDAP 2014-10-16 00:00:00 Completed [facility] TDAP 2014-10-16 00:00:00 Completed [facility] TDAP 2014-10-16 00:00:00 Completed [facility] TDAP 2014-10-16 00:00:00 Completed [facility] Tdap 2014-10-16 00:00:00 Completed [facility] Influenza Virus Vaccine Quad IM Multi-dose 6+ MO 2014-06-19 00:00:00 Completed [facility] Influenza Virus Vaccine Quad IM Multi-dose 6+ MO 2014-06-19 00:00:00 Completed Influenza Virus Vaccine Quad IM Multi-dose 6+ MO 2014-06-19 00:00:00 Completed Influenza Virus Vaccine Quad IM Multi-dose 6+ MO 2014-06-19 00:00:00 Completed [facility] Influenza Virus Vaccine Quad IM Multi-dose 6+ MO 2014-06-19 00:00:00 Completed [facility] Influenza Virus Vaccine Quad IM Multi-dose 6+ MO 2014-06-19 00:00:00 Completed [facility] Influenza Virus Vaccine Quad IM Multi-dose 6+ MO 2014-06-19 00:00:00 Completed [facility] Influenza Virus Vaccine Quad IM Multi-dose 6+ MO 2014-06-19 00:00:00 Completed [facility] Influenza Virus Vaccine Quad IM Multi-dose 6+ MO 2014-06-19 00:00:00 Completed [facility] Influenza Virus Vaccine Quad IM Multi-dose 6+ MO 2014-06-19 00:00:00 Completed [facility] Influenza Virus Vaccine Quad IM Multi-dose 6+ MO 2014-06-19 00:00:00 Completed [facility] Influenza Virus Vaccine Quad IM Multi-dose 6+ MO 2014-06-19 00:00:00 Completed [facility] Influenza Virus Vaccine Quad IM Multi-dose 6+ MO 2014-06-19 00:00:00 Completed [facility] Influenza Virus Vaccine Quad IM Multi-dose 6+ MO 2014-06-19 00:00:00 Completed [facility] Influenza Virus Vaccine Quad IM Multi-dose 6+ MO 2014-06-19 00:00:00 Completed [facility] Influenza Virus Vaccine Quad IM Multi-dose 6+ MO 2014-06-19 00:00:00 Completed [facility] Influenza Virus Vaccine Quad IM Multi-dose 6+ MO 2014-06-19 00:00:00 Completed [facility] Influenza Virus Vaccine Quad IM Multi-dose 6+ MO 2014-06-19 00:00:00 Completed [facility] Influenza Virus Vaccine Quad IM Multi-dose 6+ MO 2014-06-19 00:00:00 Completed [facility] Tdap 2013-03-22 00:00:00 Completed [facility] TDAP 2013-03-22 00:00:00 Completed [facility] TDAP 2013-03-22 00:00:00 Completed [facility] Tdap 2013-03-22 00:00:00 Completed [facility] TDAP 2013-03-22 00:00:00 Completed [facility] TDAP 2013-03-22 00:00:00 Completed [facility] TDAP 2013-03-22 00:00:00 Completed [facility] TDAP 2013-03-22 00:00:00 Completed [facility] TDAP 2013-03-22 00:00:00 Completed [facility] TDAP 2013-03-22 00:00:00 Completed [facility] TDAP 2013-03-22 00:00:00 Completed [facility] TDAP 2013-03-22 00:00:00 Completed [facility] Tdap 2013-03-22 00:00:00 Completed [facility] TDAP 2013-03-22 00:00:00 Completed [facility] TDAP 2013-03-22 00:00:00 Completed [facility] TDAP 2013-03-22 00:00:00 Completed [facility] TDAP 2013-03-22 00:00:00 Completed [facility] TDAP 2013-03-22 00:00:00 Completed [facility] Tdap 2013-03-22 00:00:00 Completed [facility] Rubella 2009-12-24 00:00:00 Completed [facility] Rubella 2009-12-24 00:00:00 Completed Rubella 2009-12-24 00:00:00 Completed Rubella 2009-12-24 00:00:00 Completed [facility] Rubella 2009-12-24 00:00:00 Completed [facility] Rubella 2009-12-24 00:00:00 Completed [facility] Rubella 2009-12-24 00:00:00 Completed [facility] Rubella 2009-12-24 00:00:00 Completed [facility] Rubella 2009-12-24 00:00:00 Completed [facility] Rubella 2009-12-24 00:00:00 Completed [facility] Rubella 2009-12-24 00:00:00 Completed [facility] Rubella 2009-12-24 00:00:00 Completed [facility] Rubella 2009-12-24 00:00:00 Completed [facility] Rubella 2009-12-24 00:00:00 Completed [facility] Rubella 2009-12-24 00:00:00 Completed [facility] Rubella 2009-12-24 00:00:00 Completed [facility] Rubella 2009-12-24 00:00:00 Completed [facility] Rubella 2009-12-24 00:00:00 Completed [facility] Rubella 2009-12-24 00:00:00 Completed [facility] HPV9 Unknown Completed [facility] TDAP Unknown Completed [facility] Rubella Unknown Completed [facility] Influenza Virus Vaccine Quad IM Multi-dose 6+ MO Unknown Completed [facility] Influenza Virus Vaccine Quad .5 mL IM 6+ MO (FLUZONE/FLULAVAL/F LUARIX) Unknown Completed [facility] HPV9 Unknown Completed [facility] Flu Trivalent Unknown Completed [facility] TDAP Unknown Completed [facility] Rubella Unknown Completed [facility] Influenza Virus Vaccine Quad IM Multi-dose 6+ MO Unknown Completed [facility] Influenza Virus Vaccine Quad .5 mL IM 6+ MO (FLUZONE/FLULAVAL/F LUARIX) Unknown Completed [facility] HPV9 Unknown Completed [facility] Influenza, split virus, trivalent, PF (AFLURIA/FLUARIX/FL ULAVAL/FLUZONE) Unknown Completed [facility] TDAP Unknown Completed [facility] Rubella Unknown Completed [facility] Influenza Virus Vaccine Quad IM Multi-dose 6+ MO Unknown Completed [facility] Influenza Virus Vaccine Quad .5 mL IM 6+ MO (FLUZONE/FLULAVAL/F LUARIX) Unknown Completed [facility] HPV9 Unknown Completed [facility] Influenza, split virus, trivalent, PF (AFLURIA/FLUARIX/FL ULAVAL/FLUZONE) Unknown Completed [facility] Rubella Unknown Completed [facility] Influenza Virus Vaccine Quad IM Multi-dose 6+ MO Unknown Completed [facility] TDAP Unknown Completed [facility] Influenza Virus Vaccine Quad .5 mL IM 6+ MO (FLUZONE/FLULAVAL/F LUARIX) Unknown Completed [facility] Rubella Unknown Completed [facility] Influenza Virus Vaccine Quad IM Multi-dose 6+ MO Unknown Completed [facility] TDAP Unknown Completed [facility] Influenza Virus Vaccine Quad .5 mL IM 6+ MO (FLUZONE/FLULAVAL/F LUARIX) Unknown Completed [facility] TDAP Unknown Completed [facility] Rubella Unknown Completed [facility] Influenza Virus Vaccine Quad IM Multi-dose 6+ MO Unknown Completed [facility] Influenza Virus Vaccine Quad .5 mL IM 6+ MO (FLUZONE/FLULAVAL/F LUARIX) Unknown Completed [facility] TDAP Unknown Completed [facility] Rubella Unknown Completed [facility] Influenza Virus Vaccine Quad IM Multi-dose 6+ MO Unknown Completed [facility] Influenza Virus Vaccine Quad .5 mL IM 6+ MO (FLUZONE/FLULAVAL/F LUARIX) Unknown Completed [facility] HPV9 Unknown Completed [facility] TDAP Unknown Completed [facility] Rubella Unknown Completed [facility] Influenza Virus Vaccine Quad IM Multi-dose 6+ MO Unknown Completed [facility] Influenza Virus Vaccine Quad .5 mL IM 6+ MO (FLUZONE/FLULAVAL/F LUARIX) Unknown Completed [facility] HPV9 Unknown Completed [facility] Flu Trivalent Unknown Completed [facility] TDAP Unknown Completed [facility] Rubella Unknown Completed [facility] Influenza Virus Vaccine Quad IM Multi-dose 6+ MO Unknown Completed [facility] Influenza Virus Vaccine Quad .5 mL IM 6+ MO (FLUZONE/FLULAVAL/F LUARIX) Unknown Completed [facility] HPV9 Unknown Completed [facility] Flu Trivalent Unknown Completed [facility] TDAP Unknown Completed [facility] Rubella Unknown Completed [facility] Influenza Virus Vaccine Quad IM Multi-dose 6+ MO Unknown Completed [facility] Influenza Virus Vaccine Quad .5 mL IM 6+ MO (FLUZONE/FLULAVAL/F LUARIX) Unknown Completed [facility] HPV9 Unknown Completed [facility] Flu Trivalent Unknown [facility] Completed [facility] Rubella Unknown Completed [facility] Influenza Virus Vaccine Quad IM Multi-dose 6+ MO Unknown Completed [facility] Influenza Virus Vaccine Quad .5 mL IM 6+ MO (FLUZONE/FLULAVAL/F LUARIX) Unknown Completed [facility] HPV9 Unknown Completed [facility] Flu Trivalent Unknown [facility] TD[facility] Unknown Completed [facility] Rubella Unknown Completed [facility] Influenza Virus Vaccine Quad IM Multi-dose 6+ MO Unknown Completed [facility] Influenza Virus Vaccine Quad .5 mL IM 6+ MO (FLUZONE/FLULAVAL/F LUARIX) Unknown Completed [facility] HPV9 Unknown Completed [facility] Flu Trivalent Unknown Com[facility] TDAP Unknown Completed [facility] Rubella Unknown Completed [facility] Influenza Virus Vaccine Quad IM Multi-dose 6+ MO Unknown Completed [facility] Influenza Virus Vaccine Quad .5 mL IM 6+ MO (FLUZONE/FLULAVAL/F LUARIX) Unknown Completed [facility] HPV9 Unknown Completed [facility] Flu Trivalent Unknown Completed [facility] TDAP Unknown Completed [facility] Rubella Unknown Completed [facility] Influenza Virus Vaccine Quad IM Multi-dose 6+ MO Unknown Completed [facility] Influenza Virus Vaccine Quad .5 mL IM 6+ MO (FLUZONE/FLULAVAL/F LUARIX) Unknown Completed [facility] HPV9 Unknown Completed [facility] Flu Trivalent Unknown [facility] TD[facility] Unknown Completed [facility] Rubella Unknown Completed [facility] Influenza Virus Vaccine Quad IM Multi-dose 6+ MO Unknown Completed [facility] Influenza Virus Vaccine Quad .5 mL IM 6+ MO (FLUZONE/FLULAVAL/F LUARIX) Unknown Completed [facility] Flu Trivalent Unknown [facility] Vital Signs Vital Name Observation Time Observation Value Comments S ource Systolic blood pressure 2024-09-07 16:16:00 127 mm[Hg] [facility] Diastolic blood pressure 2024-09-07 16:16:00 83 mm[Hg] [facility] Heart rate 2024-09-07 16:16:00 56 /min [facility] Body temperature 2024-09-07 16:16:00 36.61 Ying [facility] Respiratory rate 2024-09-07 16:16:00 18 /min [facility] Body height 2024-09-07 16:16:00 167.6 cm [facility] Body weight 2024-09-07 16:16:00 60.238 kg [facility] BMI 2024-09-07 16:16:00 21.43 kg/m2 [facility] Systolic blood pressure 2024-08-21 19:40:00 115 mm[Hg] [facility] Diastolic blood pressure 2024-08-21 19:40:00 76 mm[Hg] [facility] Heart rate 2024-08-21 19:40:00 78 /min [facility] Body temperature 2024-08-21 19:40:00 36.89 Ying [facility] Respiratory rate 2024-08-21 19:40:00 18 /min [facility] Body height 2024-08-21 19:40:00 167.6 cm [facility] Body weight 2024-08-21 19:40:00 60.555 kg [facility] BMI 2024-08-21 19:40:00 21.55 kg/m2 [facility] Systolic blood pressure 2024-08-15 14:17:00 107 mm[Hg] [facility] Diastolic blood pressure 2024-08-15 14:17:00 69 mm[Hg] [facility] Heart rate 2024-08-15 14:17:00 72 /min [facility] Body temperature 2024-08-15 14:17:00 36.67 Ying [facility] Respiratory rate 2024-08-15 14:17:00 18 /min [facility] Oxygen saturation in Arterial blood by Pulse oximetry 2024-08-15 14:17:00 98 /min [facility] Body height 2024-08-13 16:02:00 167.6 cm [facility] Body weight 2024-08-13 16:02:00 65.454 kg [facility] BMI 2024-08-13 16:02:00 23.29 kg/m2 [facility] Systolic blood pressure 2024-08-14 17:08:00 122 mm[Hg] [facility] Diastolic blood pressure 2024-08-14 17:08:00 81 mm[Hg] [facility] Heart rate 2024-08-14 17:08:00 72 /min [facility] Body temperature 2024-08-14 17:08:00 36.67 Ying [facility] Respiratory rate 2024-08-14 17:08:00 18 /min [facility] [place] Oxygen saturation in Arterial blood by Pulse oximetry 2024-08-14 17:08:00 97 /min [facility] Body height 2024-08-13 16:02:00 167.6 cm [facility] Body weight 2024-08-13 16:02:00 65.454 kg [facility] BMI 2024-08-13 16:02:00 23.29 kg/m2 [facility] Systolic blood pressure 2024-08-06 20:30:00 115 mm[Hg] [facility] Diastolic blood pressure 2024-08-06 20:30:00 76 mm[Hg] [facility] Heart rate 2024-08-06 20:30:00 76 /min [facility] Body temperature 2024-08-06 20:30:00 36.83 Ying [facility] [place] Respiratory rate 2024-08-06 20:30:00 17 /min [facility] [place] Body height 2024-08-06 20:30:00 167.6 cm [facility] Body weight 2024-08-06 20:30:00 65.363 kg [facility] BMI 2024-08-06 20:30:00 23.26 kg/m2 [facility] Systolic blood pressure 2024-07-31 15:35:00 121 mm[Hg] [facility] Diastolic blood pressure 2024-07-31 15:35:00 73 mm[Hg] [facility] Heart rate 2024-07-31 15:35:00 69 /min [facility] Body temperature 2024-07-31 15:35:00 36.56 Ying [facility] [place] Respiratory rate 2024-07-31 15:35:00 16 /min [facility] [place] Body height 2024-07-31 15:35:00 167.6 cm [facility] Body weight 2024-07-31 15:35:00 64.683 kg [facility] BMI 2024-07-31 15:35:00 23.02 kg/m2 [facility] Systolic blood pressure 2024-07-25 17:32:00 105 mm[Hg] [facility] Diastolic blood pressure 2024-07-25 17:32:00 64 mm[Hg] [facility] Heart rate 2024-07-25 17:32:00 67 /min [facility] Body temperature 2024-07-25 17:32:00 36.72 Ying [facility] [place] Respiratory rate 2024-07-25 17:32:00 17 /min [facility] [place] Body height 2024-07-25 17:32:00 167.6 cm [facility] Body weight 2024-07-25 17:32:00 64.728 kg [facility] BMI 2024-07-25 17:32:00 23.03 kg/m2 [facility] Systolic blood pressure 2024-07-18 16:53:00 111 mm[Hg] [facility] Diastolic blood pressure 2024-07-18 16:53:00 71 mm[Hg] [facility] Heart rate 2024-07-18 16:53:00 71 /min [facility] Body temperature 2024-07-18 16:53:00 36.44 Ying [facility] [place] Respiratory rate 2024-07-18 16:53:00 16 /min [facility] [place] Body height 2024-07-18 16:53:00 167.6 cm [facility] Body weight 2024-07-18 16:53:00 64.229 kg [facility] BMI 2024-07-18 16:53:00 22.85 kg/m2 [facility] Systolic blood pressure 2024-06-27 16:53:00 124 mm[Hg] [facility] Diastolic blood pressure 2024-06-27 16:53:00 77 mm[Hg] [facility] Heart rate 2024-06-27 16:53:00 68 [facility] Body temperature 2024-06-27 16:53:00 36.61 Ying [facility] [place] Respiratory rate 2024-06-27 16:53:00 17 /min [facility] [place] Body height 2024-06-27 16:53:00 167.6 cm [facility] Body weight 2024-06-27 16:53:00 62.596 kg [facility] BMI 2024-06-27 16:53:00 22.27 kg/m2 [facility] Systolic blood pressure 2024-06-13 15:33:00 124 mm[Hg] [facility] Diastolic blood pressure 2024-06-13 15:33:00 79 mm[Hg] [facility] Heart rate 2024-06-13 15:33:00 78 /min [facility] Body temperature 2024-06-13 15:33:00 36.17 Ying [facility] [place] Respiratory rate 2024-06-13 15:33:00 18 /min [facility] [place] Body height 2024-06-13 15:33:00 167.6 cm [facility] Body weight 2024-06-13 15:33:00 63.504 kg [facility] BMI 2024-06-13 15:33:00 22.60 kg/m2 [facility] Systolic blood pressure 2024-05-30 15:51:00 105 mm[Hg] [facility] Diastolic blood pressure 2024-05-30 15:51:00 61 mm[Hg] [facility] Heart rate 2024-05-30 15:51:00 75 /[facility] 2024-05-30 15:51:00 36.61 Ying [facility] [place] Respiratory rate 2024-05-30 15:51:00 18 /min [facility] [place] Body height 2024-05-30 15:51:00 167.6 cm [facility] 2024-05-30 15:51:00 60.963 kg [facility] BMI 2024-05-30 15:51:00 21.69 kg/m2 [facility] Systolic blood pressure 2024-05-16 15:48:00 118 mm[Hg] [facility] Diastolic blood pressure 2024-05-16 15:48:00 74 mm[Hg] [facility] Heart rate 2024-05-16 15:48:00 72 /min [facility] Body temperature 2024-05-16 15:48:00 36.61 Ying [facility] [place] Respiratory rate 2024-05-16 15:48:00 17 /min [facility] [place] Body height 2024-05-16 15:48:00 167.6 cm [facility] Body weight 2024-05-16 15:48:00 59.92 kg [facility] BMI 2024-05-16 15:48:00 21.32 kg/m2 [facility] Systolic blood pressure 2024-04-18 15:44:00 110 mm[Hg] [facility] Diastolic blood pressure 2024-04-18 15:44:00 73 mm[Hg] [facility] Heart rate 2024-04-18 15:44:00 67 /min [facility] Body temperature 2024-04-18 15:44:00 36.67 Ying [facility] [place] Respiratory rate 2024-04-18 15:44:00 18 /min [facility] [place] Body height 2024-04-18 15:44:00 167.6 cm [facility] 2024-04-18 15:44:00 57.199 kg [facility] BMI 2024-04-18 15:44:00 20.35 kg/m2 [facility] Systolic blood pressure 2024-03-21 16:39:00 121 mm[Hg] [facility] Diastolic blood pressure 2024-03-21 16:39:00 81 mm[Hg] [facility] Heart rate 2024-03-21 16:39:00 69 /min [facility] Body temperature 2024-03-21 16:39:00 36.61 Ying [facility] [place] Respiratory rate 2024-03-21 16:39:00 17 /min [facility] [place] Body height 2024-03-21 16:39:00 167.6 cm [facility] Body weight 2024-03-21 16:39:00 55.339 kg [facility] BMI 2024-03-21 16:39:00 19.69 kg/m2 [facility] Systolic blood pressure 2024-03-07 20:56:00 108 mm[Hg] [facility] Diastolic blood pressure 2024-03-07 20:56:00 68 mm[Hg] [facility] Heart rate 2024-03-07 20:56:00 66 /min [facility] Body temperature 2024-03-07 20:56:00 36.61 Ying [facility] [place] Respiratory rate 2024-03-07 20:56:00 18 /min [facility] [place] Body height 2024-03-07 20:56:00 167.6 cm [facility] Body weight 2024-03-07 20:56:00 55.339 kg [facility] BMI 2024-03-07 20:56:00 19.69 kg/m2 [facility] Systolic blood pressure 2024-02-02 15:53:00 136 mm[Hg] [facility] Diastolic blood pressure 2024-02-02 15:53:00 88 mm[Hg] [facility] Heart rate 2024-02-02 15:53:00 75 /min [facility] Body temperature 2024-02-02 15:53:00 36.5 Ying [facility] [place] Respiratory rate 2024-02-02 15:53:00 18 /min [facility] [place] Body height 2024-02-02 15:53:00 170.2 cm [facility] Body weight 2024-02-02 15:53:00 53.887 kg [facility] BMI 2024-02-02 15:53:00 18.61 kg/m2 [facility] Systolic blood pressure 2024-01-04 18:03:00 117 mm[Hg] [facility] Diastolic blood pressure 2024-01-04 18:03:00 74 mm[Hg] [facility] Heart rate 2024-01-04 18:03:00 59 /min [facility] Body temperature 2024-01-04 18:03:00 36.22 Ying [facility] [place] Respiratory rate 2024-01-04 18:03:00 18 /min [facility] [place] Body height 2024-01-04 18:03:00 170.2 cm [facility] Body weight 2024-01-04 18:03:00 55.067 kg [facility] BMI 2024-01-04 18:03:00 19.01 kg/m2 [facility] Systolic blood pressure 2023-09-14 16:15:00 110 mm[Hg] [facility] Diastolic blood pressure 2023-09-14 16:15:00 68 mm[Hg] [facility] Heart rate 2023-09-14 16:15:00 64 /min [facility] Body temperature 2023-09-14 16:15:00 36.11 Ying [facility] [place] Respiratory rate 2023-09-14 16:15:00 20 /min [facility] [place] Body height 2023-09-14 16:15:00 170.2 cm [facility] Body weight 2023-09-14 16:15:00 55.611 kg [facility] BMI 2023-09-14 16:15:00 19.20 kg/m2 [facility] Systolic blood pressure 2023-06-04 15:42:00 121 mm[Hg] [facility] Diastolic blood pressure 2023-06-04 15:42:00 67 mm[Hg] [facility] Heart rate 2023-06-04 15:42:00 58 /min [facility] Body temperature 2023-06-04 15:42:00 36.44 Ying [facility] [place] Respiratory rate 2023-06-04 15:42:00 17 /min [facility] [place] Body height 2023-06-04 15:42:00 170.2 cm [facility] Body weight 2023-06-04 15:42:00 56.473 kg [facility] BMI 2023-06-04 15:42:00 19.50 kg/m2 [facility] Systolic blood pressure 2022-12-29 20:26:00 124 mm[Hg] [facility] Diastolic blood pressure 2022-12-29 20:26:00 62 mm[Hg] [facility] Heart rate 2022-12-29 20:26:00 75 /min [facility] Body temperature 2022-12-29 20:26:00 36.44 Ynig [facility] [place] Respiratory rate 2022-12-29 20:26:00 20 /min [facility] [place] Body height 2022-12-29 20:26:00 170.2 cm [facility] Body weight 2022-12-29 20:26:00 58.786 kg [facility] BMI 2022-12-29 20:26:00 20.30 kg/m2 [facility] Systolic blood pressure 2022-09-06 16:39:00 123 mm[Hg] [facility] Diastolic blood pressure 2022-09-06 16:39:00 71 mm[Hg] [facility] Heart rate 2022-09-06 16:39:00 65 /min [facility] Body temperature 2022-09-06 16:39:00 36.5 Ying [facility] [place] Respiratory rate 2022-09-06 16:39:00 18 /min [facility] [place] Body height 2022-09-06 16:39:00 170.2 cm [facility] Body weight 2022-09-06 16:39:00 59.478 kg [facility] BMI 2022-09-06 16:39:00 20.54 kg/m2 [facility] Systolic blood pressure 2022-08-23 15:09:00 122 mm[Hg] [facility] Diastolic blood pressure 2022-08-23 15:09:00 77 mm[Hg] [facility] Heart rate 2022-08-23 15:09:00 79 /min [facility] Body temperature 2022-08-23 15:09:00 36.39 Ying [facility] [place] Respiratory rate 2022-08-23 15:09:00 18 /min [facility] [place] Body height 2022-08-23 15:09:00 170.2 cm [facility] Body weight 2022-08-23 15:09:00 57.72 kg [facility] BMI 2022-08-23 15:09:00 19.93 kg/m2 [facility] Systolic blood pressure 2022-05-21 14:29:00 129 mm[Hg] [facility] Diastolic blood pressure 2022-05-21 14:29:00 76 mm[Hg] [facility] Heart rate 2022-05-21 14:29:00 67 /min [facility] Body temperature 2022-05-21 14:29:00 36.78 Ying [facility] [place] Respiratory rate 2022-05-21 14:29:00 20 /min [facility] [place] Body height 2022-05-21 14:29:00 170.2 cm [facility] Body weight 2022-05-21 14:29:00 56.155 kg [facility] BMI 2022-05-21 14:29:00 19.39 kg/m2 [facility] Systolic blood pressure 2020-12-31 19:56:00 134 mm[Hg] [facility] Diastolic blood pressure 2020-12-31 19:56:00 94 mm[Hg] [facility] Heart rate 2020-12-31 19:55:00 63 /min [facility] Body temperature 2020-12-31 19:55:00 36.78 Ying [facility] [place] Respiratory rate 2020-12-31 19:55:00 16 /min [facility] [place] Body height 2020-12-31 19:55:00 170.2 cm [facility] Body weight 2020-12-31 19:55:00 58.106 kg [facility] BMI 2020-12-31 19:55:00 20.06 kg/m2 [facility] Systolic blood pressure 2020-09-09 19:08:00 120 mm[Hg] [facility] Diastolic blood pressure 2020-09-09 19:08:00 81 mm[Hg] [facility] Heart rate 2020-09-09 19:08:00 69 /min [facility] Body temperature 2020-09-09 19:08:00 36.67 Ying [facility] [place] Respiratory rate 2020-09-09 19:08:00 16 /min [facility] [place] Body height 2020-09-09 19:08:00 170.7 cm [facility] Body weight 2020-09-09 19:08:00 57.561 kg [facility] BMI 2020-09-09 19:08:00 19.76 kg/m2 [facility] Systolic blood pressure 2020-06-17 15:56:00 124 mm[Hg] [facility] Diastolic blood pressure 2020-06-17 15:56:00 81 mm[Hg] [facility] Heart rate 2020-06-17 15:56:00 77 /min [facility] Body temperature 2020-06-17 15:56:00 36.5 Ying [facility] [place] Respiratory rate 2020-06-17 15:56:00 16 /min [facility] [place] Body height 2020-06-17 15:56:00 167.6 cm [facility] Body weight 2020-06-17 15:56:00 58.287 kg [facility] BMI 2020-06-17 15:56:00 20.74 kg/m2 [facility] Systolic blood pressure 2020-03-20 14:17:00 126 mm[Hg] [facility] Diastolic blood pressure 2020-03-20 14:17:00 86 mm[Hg] [facility] Heart rate 2020-03-20 14:17:00 81 /min [facility] Body temperature 2020-03-20 14:17:00 36.72 Ying [facility] [place] Respiratory rate 2020-03-20 14:17:00 16 /min [facility] [place] Body height 2020-03-20 14:17:00 167.6 cm [facility] Body weight 2020-03-20 14:17:00 58.378 kg [facility] BMI 2020-03-20 14:17:00 20.77 kg/m2 [facility] Systolic blood pressure 2019-12-27 13:57:00 126 mm[Hg] [facility] Diastolic blood pressure 2019-12-27 13:57:00 86 mm[Hg] [facility] Heart rate 2019-12-27 13:57:00 72 /min [facility] Body temperature 2019-12-27 13:57:00 36.39 Yign [facility] [place] Respiratory rate 2019-12-27 13:57:00 16 /min [facility] [place] Body height 2019-12-27 13:57:00 161.3 cm [facility] Body weight 2019-12-27 13:57:00 59.932 kg [facility] BMI 2019-12-27 13:57:00 23.04 kg/m2 [facility] Systolic blood pressure 2019-11-30 06:30:00 126 mm[Hg] [facility] Diastolic blood pressure 2019-11-30 06:30:00 87 mm[Hg] [facility] Heart rate 2019-11-30 06:30:00 65 /min [facility] Respiratory rate 2019-11-30 06:30:00 12 /min [facility] [place] Oxygen saturation in Arterial blood by Pulse oximetry 2019-11-30 06:30:00 100 /min [facility] Body temperature 2019-11-30 04:02:00 36.78 Ying [facility] [place] Body height 2019-11-30 04:02:00 162.6 cm [facility] Body weight 2019-11-30 04:02:00 61.236 kg [facility] BMI 2019-11-30 04:02:00 23.17 kg/m2 [facility] Systolic blood pressure 2019-10-03 16:27:00 126 mm[Hg] [facility] Diastolic blood pressure 2019-10-03 16:27:00 83 mm[Hg] [facility] Heart rate 2019-10-03 16:27:00 63 /min [facility] Body temperature 2019-10-03 16:27:00 36.17 Ying [facility] [place] Respiratory rate 2019-10-03 16:27:00 18 /min [facility] [place] Body height 2019-10-03 16:27:00 160 cm [facility] Body weight 2019-10-03 16:27:00 57.352 kg [facility] BMI 2019-10-03 16:27:00 22.40 kg/m2 [facility] Systolic blood pressure 2019-04-18 15:26:00 111 mm[Hg] [facility] Diastolic blood pressure 2019-04-18 15:26:00 72 mm[Hg] [facility] Heart rate 2019-04-18 15:26:00 98 /min [facility] Body temperature 2019-04-18 15:26:00 36.67 Ying [facility] [place] Respiratory rate 2019-04-18 15:26:00 16 /min [facility] [place] Body height 2019-04-18 15:26:00 160 cm [facility] Body weight 2019-04-18 15:26:00 55.566 kg [facility] BMI 2019-04-18 15:26:00 21.70 kg/m2 [facility] Body Temperature 2024-09-17 10:53:00 97.40 degrees Abisai [facility] Heart Rate 2024-09-17 10:53:00 75.00 /min Maryann en [facility] Respiratory Rate 2024-09-17 10:53:00 19.00 /min Abisai [facility] BP Systolic 2024-09-17 10:53:00 111 mm[Hg] Step hen [facility] BP Diastolic 2024-09-17 10:53:00 75 mm[Hg] Skip phen [facility] Weight Measured 2024-09-17 10:53:00 133.80 pounds Abisai F [facility] Height Measured 2024-09-17 10:53:00 65.00 inches Abisai F [facility] BP Systolic 2023-06-23 09:02:00 122 mm[Hg] Step hen [facility] BP Diastolic 2023-06-23 09:02:00 79 mm[Hg] Skip phen [facility] Weight Measured 2023-06-23 09:02:00 125.80 pounds Abisai F [facility] Height Measured 2023-06-23 09:02:00 65.00 inches Abisai [facility] Body Temperature 2023-06-23 09:02:00 98.20 degrees Abisai F [facility] Heart Rate 2023-06-23 09:02:00 69.00 /min Maryann en [facility] Respiratory Rate 2023-06-23 09:02:00 18.00 /min Abisai [facility] BP Systolic 2022-10-05 09:03:00 121 mm[Hg] Step hen [facility] BP Diastolic 2022-10-05 09:03:00 83 mm[Hg] Skip phen [facility] Weight Measured 2022-10-05 09:03:00 126.80 pounds Abisai F [facility] Height Measured 2022-10-05 09:03:00 65.00 inches Abisai [facility] Body Temperature 2022-10-05 09:03:00 98.00 degrees Abisai [facility] Heart Rate 2022-10-05 09:03:00 70.00 /min Maryann en [facility] Respiratory Rate 2022-10-05 09:03:00 18.00 /min Abis[facility] Procedures Procedure Date / Time Performed Performing Clinician Source CBC WITH DIFF 2024-08-15 08:15:00 Betzaida Negrete [facility] CBC WITH DIFF 2024-08-15 08:15:00 Betzaida Negrete [facility] CBC WITH DIFF 2024-08-15 01:46:00 Angelita Solis [facility] PROTHROMBIN TIME / INR 2024-08-15 01:46:00 Solis, Taylor [facility] ACTIVATED PARTIAL THRMPLAS RIK 2024-08-15 01:46[facility]15 01:46:00 Angelita Solis [facility] CBC WITH DIFF 2024-08-15 01:46:00 Angelita Solis [facility] PROTHROMBIN TIME / INR 2024-08-15 01:46:00 Taylor Solis [facility] ACTIVATED PARTIAL THRMPLAS RIK 2024-08-15 01:46[facility]00 [facility] 2024-08-15 01:46:00 Angelita Solis [facility] CBC WITH DIFF 2024-08-14 21:34:00 [facility] CBC WITH DIFF 2024-08-14 21:34:00 [facility] [id number] - [place] OCCLUSION FLP TUBE DEV VAG/SUPRAPUBIC APPR 2024-08-14 13:38:00 James Gorman [facility] [place] CBC WITH DIFF 2024-08-14 11:19:00 Patria Quinn [facility] CBC WITH DIFF 2024-08-14 11:19:00 Patria Quinn [facility] VENOUS CORD GAS 2024-08-14 02:25:00 Arabella Husain [facility] VENOUS CORD GAS 2024-08-14 02:25:00 [facility] CENTRAL NEURAXIAL BLOCK 2024-08-13 19:43:00 Virginia Husain [facility] [place] CBC WITH DIFF 2024-08-13 16:30:00 Arabella Husain [facility] HEPATITIS B SURFACE ANTIGEN 2024-08-13 16:30:00 Arabella Husain [facility] [place] HB ABO GROUPING 2024-08-13 16:30:00 Arabella Husain [facility] RHO (D) IMMUNE GLOBULIN 2024-08-13 16:30:00 [facility]AB WITH REFLEX 2024-08-13 16:30:00 Rodrigue [facility] SYPHILIS IGG/IGM 2024-08-13 16:30:00 Rodrigue [facility] CBC WITH DIFF 2024-08-13 16:30[facility]00 [facility]TIGEN 2024-08-13 16:30:00 Rodrigue [facility] HB ABO GROUPING 2024-08-13 16:30:00 Rodrigue [facility] RHO (D) IMMUNE GLOBULIN 2024-08-13 16:30:00 [facility] AG-AB WITH REFLEX 2024-08-13 16:30:00 Rodrigue [facility] SYPHILIS IGG/IGM 2024-08-13 16:30:00 Rodrigue [facility] POCT URINALYSIS 2024-08-06 20:57:00 Kevin Montalvo [facility] [place] POCT URINALYSIS 2024-07-31 15:51:00 Kevin Montalvo [facility] [place] CBC WITH DIFF 2024-07-25 18:00:00 Kevin Montalvo [facility] [place] GC & CHLAMYDIA AMPLIFIED ASSAY 2024-07-25 17:40:00 Kevin Montalvo [facility] [place] POCT URINALYSIS 2024-07-25 17:40:00 Kevin Montalvo [facility] [place] POCT URINALYSIS 2024-07-18 17:22:00 Kevin Montalvo [facility] [place] POCT URINALYSIS 2024-06-27 17:43:00 Kevin Montalvo [facility] [place] POCT URINALYSIS 2024-06-13 15:36:00 Kevin Montalvo [facility] [place] TDAP VACCINE, >11 YRS, IM 2024-05-30 16:08:26 Kevin Montalvo [facility] [place] SECOND AND THIRD TRIMESTER ULTRASOUND 2024-05-22 17:14:00 Kevin Montalvo [facility] [place] SECOND AND THIRD TRIMESTER ULTRASOUND 2024-05-22 17:06:00 Kevin Montalvo [facility] [place] POCT URINALYSIS 2024-05-16 17:36:00 Kevin Montalvo [facility] [place] GLUCOSE 1 HOUR POST PRANDIAL 2024-05-16 16:47:00 Kevin Montalvo [facility] [place] CBC WITH DIFF 2024-05-16 16:47:00 Kevin Montalvo [facility] [place] FLU VACC (), 6 MO-64 YRS, .5ML, IM, TIV (FLUCELVAX) 2024-05-16 16:09:48 Kevin Montalvo [facility] [place] POCT URINALYSIS 2024-04-18 16:45:00 Kevin Montalvo [facility] [place] SECOND AND THIRD TRIMESTER ULTRASOUND 2024-03-21 16:39:00 Kevin Montalvo [facility] [place] POCT URINALYSIS 2024-03-07 21:00:00 Kevin Montalvo [facility] [place] POCT URINALYSIS 2024-02-02 16:08:00 Kevin Montalvo [facility] [place] POCT TEST 2024-01-04 17:58:00 Dontae Montalvo [facility] [place] POCT URINALYSIS W/O SPECIFIC GRAVITY 2024-01-04 17:58:00 Kevin Montalvo [facility] [place] GARDASIL 9 (HPV 9V) VACCINE 2023-10-20 16:32:35 Kevin Montalvo [facility] [place] GARDASIL 9 (HPV 9V) VACCINE 2023-09-14 16:36:30 Kevin Montalvo [facility] [place] DISCLOSURE AND CONSENT, MEDICAL AND SURGICAL PROCEDURES 2023-09-14 06:01:00 Doctor Unassigned, [place] [facility] [place] ASSIGNMENT OF BENEFITS 2023-06-04 15:31:14 Docto r Unassigned, [place] [facility] [place] POCT TEST 2022-12-29 00:00:00 Dontae Montalvo [facility] [place] POCT TEST 2022-09-06 00:00:00 Dontae Montalvo [facility] [place] POCT TEST 2022-08-23 15:28:00 Dontae Montalvo [facility] [place] ASSIGNMENT OF BENEFITS 2022-05-21 14:13:42 Docto r Unassigned, [place] [facility] [place] HIV 1/2 AG-AB WITH REFLEX 2020-12-31 21:01:00 Carloz E[place]ada [place] [facility] PAP SMEAR-LIQUID BASED-CP 2020-12-31 21:01:00 Carloz Estrada [facility] GALV ONLY - SYPHILIS IGG/IGM 2020-12-31 21:01:00 Carloz Estrada [facility] FLU VACC ([phone]), 6+ MONTHS, IM, QUAD 2020-06-17 16:09:14 Kevin Montalvo [facility] URINALYSIS 2019-11-30 05:08:00 Sasha García [facility] POCT TEST 2019-11-30 05:08:00 Sasha García e [facility] LIPASE 2019-11-30 04:15:00 Sasha García [facility] MAGNESIUM 2019-11-30 04:15:00 Sasha García [facility] COMP. METABOLIC PANEL ([id number]) 2019-11-30 04:15:00 Sasha García [facility] CBC WITH DIFFERENTIAL 2019-11-30 04:15:00 Sasha García ige [facility] EKG-12 LEAD 2019-11-30 04:14:04 Sasha García [facility] Encounters Start Date/Time End Date/Time Encounter Type Admission Type Attending Clinicians Care Facility Care Department Encounter ID Source 2021-06-11 18:15:16 Emergency [facility] [id number] [facility] 2024-09-17 10:38:34 2024-09-17 10:38:34 Outpatient SFA [facility] [id number] Abisai Maravilla 2024-09-17 00:00:00 2024-09-17 00:00:00 Outpatient Visit SFA [id number] Abisai Maravilla 2024-09-07 10:15:00 2024-09-07 10:58:01 Outpatient R KEVIN MONTALVO [facility] [id number] [facility] 2024-09-07 10:15:00 2024-09-07 10:30:00 Routine Visit Kevin Montalvo [facility] 1.2.840.114 350.1.13.10 4.2.7.2.686 [id number] [facility] 2024-08-21 13:45:00 2024-08-21 14:16:23 Outpatient R KEVIN MONTALVO [facility] [id number] [facility] 2024-08-21 13:45:00 2024-08-21 14:16:23 Routine Visit Kevin Montalvo [facility] 1.2.840.114 350.1.13.10 4.2.7.2.686 [id number] [facility] 2024-08-21 13:45:00 2024-08-21 13:45:00 Outpatient R KEVIN MONTALVO [facility] [id number] [facility] 2024-08-14 01:00:00 2024-08-17 09:39:38 Outpatient R JAMES GORMAN SHANNON [facility] [id number] [facility] 2024-08-13 09:57:00 2024-08-15 16:53:00 Inpatient P PRAVEENA HOUSER FARANAK [facility] DENISE [id number] [facility] 2024-08-13 09:57:00 2024-08-15 16:53:00 Hospital Encounter Praveena Houser [facility] 1.2.840.114 350.1.13.10 4.2.7.2.686 [id number] [facility] 2024-08-14 09:50:00 2024-08-14 11:14:00 Surgery Jaems Gorman [facility] 1.2.840.114 350.1.13.10 4.2.7.2.686 [id number] [facility] 2024-08-13 13:23:00 2024-08-13 21:15:00 Anesthesia Event Reny Husain Allison Elizabeth [facility] 1.2.840.114 350.1.13.10 4.2.7.2.686 [id number] [facility] 2024-08-06 14:30:00 2024-08-06 14:49:40 Outpatient R KEVIN MONTALVO [facility] [id number] [facility] 2024-08-06 14:30:00 2024-08-06 14:49:40 Routine Visit Kevin Montalvo [facility] 1.2.840.114 350.1.13.10 4.2.7.2.686 [id number] [facility] 2024-07-31 09:00:00 2024-07-31 09:15:00 Routine Visit Kevin Montalvo [facility] 1.2.840.114 350.1.13.10 4.2.7.2.686 [id number] [facility] 2024-07-31 09:00:00 2024-07-31 09:00:00 Outpatient R KEVIN MONTALVO [facility] [id number] [facility] 2024-07-25 11:00:00 2024-07-25 15:28:44 Outpatient R GHAZALLONIKEVIN [facility] [id number] [facility] 2024-07-25 11:00:00 2024-07-25 15:28:44 Routine Visit Kevin Montalvo NJGABBIE [facility] 1..840.114 350.1.13.10 4.2.7.2.686 [id number] [facility] 2024-07-18 10:45:00 2024-07-18 11:40:08 Outpatient R KATIANICKKEVIN [facility] [id number] [facility] 2024-07-18 10:45:00 2024-07-18 11:40:08 Routine Visit Zeny Montalvoola Victorina [facility] 1..840.114 350.1.13.10 4.2.7.2.686 [id number] [facility] 2024-07-11 10:45:00 2024-07-11 10:45:00 Outpatient R CAROLYNEAILYNLONI KEVIN [facility] [id number] [facility] 2024-06-27 11:00:00 2024-06-27 11:18:21 Outpatient R KATIA KEVIN [facility] [id number] [facility] 2024-06-27 11:00:00 2024-06-27 11:18:21 Routine Visit Nick Montalvoilola Victorina [facility] ..840.114 350.1.13.10 4.2.7.2.686 [id number] [facility] 2024-06-13 10:30:00 2024-06-13 11:21:12 Outpatient R KEVIN MONTALVO [facility] [id number] [facility] 2024-06-13 10:30:00 2024-06-13 11:21:12 Routine Visit Kevin Montalvo [facility] 1.2.840.114 350.1.13.10 4.2.7.2.686 [id number] [facility] 2024-05-30 10:45:00 2024-05-30 11:11:52 Outpatient R KEVIN MONTALVO [facility] [id number] [facility] 2024-05-30 10:45:00 2024-05-30 11:11:52 Routine Visit Kevin Montalvo [facility] 1.2.840.114 350.1.13.10 4.2.7.2.686 [id number] [facility] 2024-05-22 00:00:00 2024-05-22 16:16:07 Abstract Kevin Montalvo [facility] 1.2.840.114 350.1.13.10 4.2.7.2.686 [id number] [facility] 2024-05-22 09:45:00 2024-05-22 12:19:49 Outpatient ILSA BISHOP KARIN FOX, KARIN [facility] [id number] [facility] 2024-05-22 09:45:00 2024-05-22 12:19:49 Workers' Compensation Claims Supervisor Visit Ultrasound, Lisa Blanchard [facility] 1..840.114 350.1.13.10 4.2.7.2.686 [id number] [facility] 2024-05-16 10:45:00 2024-05-16 11:28:49 Outpatient R KEVIN MONTALVO [facility] [id number] [facility] 2024-05-16 10:45:00 2024-05-16 11:28:49 Routine Visit CarolyneailynloniKevin Victorina [facility] 1.2.840.114 350.1.13.10 4.2.7.2.686 [id number] [facility] 2024-04-23 00:00:00 2024-04-24 07:57:06 Telephone CarolyneKevin feng Victorina [facility] 1.2.840.114 350.1.13.10 4.2.7.2.686 [id number] [facility] 2024-04-18 10:45:00 2024-04-18 11:41:51 Outpatient R CAROLYNEAILYNLONINICKKEVIN [facility] [id number] [facility] 2024-04-18 10:45:00 2024-04-18 11:41:51 Routine Visit CarolyneKevin feng Victorina [facility] 1.2840.114 350.1.13.10 4.2.7.2.686 [id number] [facility] 2024-03-22 00:00:00 2024-03-22 14:00:43 Abstract Kevin Montalvo Victorina [facility] 1.2.840.114 350.1.13.10 4.2.7.2.686 [id number] [facility] 2024-03-21 10:45:00 2024-03-21 11:52:59 Workers' Compensation Claims Supervisor Visit Ultrasound, Gokul-Tristan MontalvoZenyKevin C [facility] 1.2.840.114 350.1.13.10 4.2.7.2.686 [id number] [facility] 2024-03-21 10:00:00 2024-03-21 11:50:22 Routine Visit KatiaNickKevin Victorina [facility] 1..840.114 350.1.13.10 4.2.7.2.686 [id number] [facility] 2024-03-21 10:00:00 2024-03-21 11:50:22 Outpatient R GHAZALLONIKEVIN [facility] [id number] [facility] 2024-03-21 10:30:00 2024-03-21 10:30:00 Outpatient R [facility] [id number] [facility] 2024-03-07 15:45:00 2024-03-07 16:21:47 Outpatient R CAROLYNEIALYNLONIKEVIN [facility] [id number] [facility] 2024-03-07 15:45:00 2024-03-07 16:21:47 Routine Visit Kevin Montalvo [facility] 1..840.114 350.1.13.10 4.2.7.2.686 [id number] [facility] 2024-03-06 09:30:00 2024-03-06 09:30:00 Outpatient R GHAZALLONIKEVIN [facility] [id number] [facility] 2024-03-01 10:15:00 2024-03-01 10:15:00 Outpatient R CAROLYNEAILYNLONI KEVIN [facility] [id number] [facility] 2024-02-02 11:00:00 2024-02-02 11:48:42 Outpatient R KATIA KEVIN [facility] [id number] [facility] 2024-02-02 11:00:00 2024-02-02 11:48:42 Routine Visit Kevin Montalvo [facility] 1..840.114 350.1.13.10 4.2.7.2.686 [id number] [facility] 2024-01-04 13:00:00 2024-01-04 14:14:27 Outpatient R KEVIN MONTALVO [facility] [id number] [facility] 2024-01-04 13:00:00 2024-01-04 14:14:27 Initial Visit Kevin Montalvo [facility] 1..840.114 350.1.13.10 4.2.7.2.686 [id number] 107 [id number] [facility] 2023-10-20 10:30:00 2023-10-20 10:30:00 Nurse Visit NurseGokul Rgv Cprit Obgyn Kevin Montalvo [facility] 1..840.114 350.1.13.10 4.2.7.2.686 [id number] 107 [id number] [facility] 2023-10-20 10:30:00 2023-10-20 10:29:18 Outpatient R KEVIN MONTALVO [facility] [id number] [facility] 2023-09-14 10:45:00 2023-09-14 11:13:52 Outpatient R KEVIN MONTALVO [facility] [id number] [facility] 2023-09-14 10:30:00 2023-09-14 11:13:46 Outpatient R MARYBETH MENA [facility] [id number] [facility] 2023-09-14 10:30:00 2023-09-14 11:13:46 Office Visit Marybeth Mena [facility] 1..840.114 350.1.13.10 4.2.7.2.686 [id number] [facility] 2023-09-14 10:45:00 2023-09-14 11:00:00 Nurse Visit NurseGokul Rgv Cprit Obgyn Kevin Montalvo [facility]ILD [facility] 1..114 350.1.13.10 4.2.7.2.686 [id number] 107 [id number] [facility] 2023-09-14 00:00:00 2023-09-14 00:00:00 Orders Only Doctor Unassigned, Bangs [facility] 1..114 350.1.13.10 4.2.7.2.686 [id number] [facility] 2023-09-09 08:00:00 2023-09-09 08:00:00 Outpatient MARYBETH KNAPP [facility] [id number] [facility] 2023-07-26 00:00:00 2023-07-26 00:00:00 Telephone Kevin Montalvo [facility] ..114 350.1.13.10 4.2.7.2.686 [id number] 107 [id number] [facility] 2023-06-23 08:50:16 2023-06-23 08:50:[address] [facility] [id number] Abisai Maravilla 2023-06-04 10:45:00 2023-06-04 11:25:29 Outpatient R KEVIN MONTALVO [facility] [id number] [facility] 2023-06-04 10:45:00 2023-06-04 11:25:29 Office Visit Kevin Montalvo [facility] ..114 350.1.13.10 4.2.7.2.686 [id number] 107 [id number] [facility] 2023-06-04 00:00:00 2023-06-04 00:00:00 Orders Only Doctor Unassigned, Bangs [facility] 1..114 350.1.13.10 4.2.7.2.686 [id number] [facility] 2022-12-29 13:45:00 2022-12-29 15:40:04 Nurse Visit Visit, Ang-Rmchp Marybeth Hayes [facility] .840.114 350.1.13.10 4.2.7.2.686 [id number] [facility] 2022-12-29 13:45:00 2022-12-29 13:45:00 Outpatient R MARYBETH MENA [facility] [id number] [facility] 2022-11-29 10:30:00 2022-11-29 10:30:00 Outpatient R KEVIN MONTALVO [facility] [id number] [facility] 2022-10-05 08:59:30 2022-10-05 08:59:[address] [facility] [id number] Abisai Maravilla 2022-09-06 10:30:00 2022-09-06 11:44:19 Outpatient R KEVIN MONTALVO [facility] [id number] [facility] 2022-09-06 10:30:00 2022-09-06 11:44:19 Office Visit Kevin Montalvo [facility] .840.114 350.1.13.10 4.2.7.2.686 [id number] 107 [id number] [facility] 2022-09-06 10:30:00 2022-09-06 10:30:00 Outpatient KEVIN SILVA [facility] [id number] [facility] 2022-08-23 09:15:00 2022-08-23 09:30:00 Office Visit Kevin Montalvo Roshunda R [facility] .840.114 350.1.13.10 4.2.7.2.686 [id number] [facility] 2022-08-23 09:15:00 2022-08-23 09:15:00 Outpatient R KEVIN MONTALVO [facility] [id number] [facility] 2022-08-23 09:15:00 2022-08-23 09:15:00 Outpatient R KEVIN MONTALVO [facility] [id number] [facility] 2022-05-27 00:00:00 2022-05-27 00:00:00 Case Management Edward Rodriguez [facility] 1..114 350.1.13.10 4.2.7.2.686 [id number] [facility] 2022-05-27 00:00:00 2022-05-27 00:00:00 Telephone Carloz Estrada [facility] 1..114 350.1.13.10 4.2.7.2.686 [id number] 107 [id number] [facility] 2022-05-21 09:30:00 2022-05-21 10:35:50 Outpatient R EDWARD RODRIGUEZ EMILY [facility] [id number] [facility] 2022-05-21 09:30:00 2022-05-21 10:35:50 Office Visit Provider, Gokul-Rmchp [place] Park [facility] 1..114 350.1.13.10 4.2.7.2.686 [id number] 107 [id number] [facility] 2022-05-21 00:00:00 2022-05-21 00:00:00 Orders Only Doctor Unassigned, Bangs [facility] 1..114 350.1.13.10 4.2.7.2.686 [id number] [facility] 2021-03-04 15:58:22 2021-03-04 16:18:22 Laboratory Only Lab, Adc Fam Pob Kit [facility] 1..840.114 350.1.13.10 4.2.7.2.686 [id number] [facility] 2021-03-04 16:00:00 2021-03-04 16:00:00 Outpatient Joss BAILEY KIT [facility] [id number] [facility] 2020-12-31 13:43:57 2020-12-31 15:58:41 Office Visit Carloz Estrada [facility] 1..840.114 350.1.13.10 4.2.7.2.686 [id number] 107 [id number] [facility] 2020-12-31 13:45:00 2020-12-31 13:45:00 Outpatient Joss CARLOZ ESTRADA [facility] [id number] [facility] 2020-12-10 13:00:00 2020-12-10 13:00:00 Outpatient Joss CARLOZ ESTRADA [facility] [id number] [facility] 2020-12-08 00:00:00 2020-12-08 00:00:00 Telephone Visit, Abel Nurse [facility] ..840.114 350.1.13.10 4.2.7.2.686 [id number] [facility] 2020-12-05 13:30:00 2020-12-05 13:30:00 Outpatient R [facility] [id number] [facility] 2020-12-02 10:30:00 2020-12-02 10:30:00 Outpatient R [facility] [id number] [facility] 2020-09-09 13:00:15 2020-09-09 13:15:06 Nurse Visit Visit, NerisCarloz Stratton [facility] 1.2.840.114 350.1.13.10 4.2.7.2.686 [id number] [facility] 2020-09-09 13:00:00 2020-09-09 13:00:00 Outpatient R [facility] [id number] [facility] 2020-09-09 09:00:00 2020-09-09 09:00:00 Outpatient R [facility] [id number] [facility] 2020-06-17 09:46:17 2020-06-17 10:09:51 Nurse Visit Visit, NerisCarloz Stratton [facility] CHILD [facility] 1..840.114 350.1.13.10 4.2.7.2.686 [id number] [facility] 2020-06-17 09:00:00 2020-06-17 09:00:00 Outpatient R [facility] [id number] [facility] 2020-06-13 09:00:00 2020-06-13 09:00:00 Outpatient R [facility] [id number] [facility] 2020-06-12 09:00:00 2020-06-12 09:00:00 Outpatient R [facility] [id number] [facility] 2020-03-20 09:09:33 2020-03-20 09:24:33 [facility] 1..840.114 350.1.13.10 4.2.7.2.686 [id number] 107 [id number] [facility] 2020-03-20 09:00:00 2020-03-20 09:00:00 Outpatient R [facility] [id number] [facility] 2019-12-27 13:45:00 2019-12-27 13:45:00 Outpatient CARLOZ GOLDSMITH [facility] [id number] [facility] 2019-12-27 08:48:58 2019-12-27 09:43:47 Office Visit Carloz Estrada [facility] 1.2.840.114 350.1.13.10 4.2.7.2.686 [id number] 107 [id number] [facility] 2019-12-27 08:45:00 2019-12-27 08:45:00 Outpatient CARLOZ GOLDSMITH [facility] [id number] [facility] 2019-11-29 22:52:52 2019-11-30 01:43:00 Emergency Sasha García [facility] 1.2.840.114 350.1.13.10 4.2.7.2.686 [id number] [facility] 2019-10-03 10:10:03 2019-10-03 10:25:03 [facility] 1.2.840.114 350.1.13.10 4.2.7.2.686 [id number] [facility] 2019-04-18 10:18:19 2019-04-18 10:18:31 Nurse Visit Visit, [facility] Nurse Estrada Belkisyeison [facility] 1.2.840.114 350.1.13.10 4.2.7.2.686 [id number] [facility] Results Test Description Test Time Test Comments Results Result Co [facility]:17:35* Test Item Value Reference Range Interpretation Comme nts APTT Patient (test code = 3173-2) 26 26-36 Lab Interpretation (test cod e = 09033-4) [facility] 02:17:35* Test Item Value Reference Range Interpretation Comme nts Fibrinogen (test code = 7469173980) 560 mg/dL 167-453 H Lab Interpretation (test cod e = 32132-5) Abnormal [facility] / [id number] 02:17:35* Test Item Value Reference Range Interpretation Comme nts PROTIME PATIENT (test code = 5964-2) 10.1 10.1-12.6 INR (test code = 6301-6) 0.9 Normal INR <1.1; Warfarin Therapeutic range 2.0 to 3.0 or 2.5 to 3.5, depending upon the indications. Lab Interpretation (test code = 52126-7) [facility] 02:17:35* Test Item Value Reference Range Interpretation Comme nts APTT Patient (test code = 3173-2) Lab Interpretation (test cod e = 43839-8) [facility]-01 02:17:35* Test Item Value Reference Range Interpretation Comme nts Fibrinogen (test code = 9510832997) 560 mg/dL 167-453 H Lab Interpretation (test cod e = 92946-3) [facility]normal [facility] [id number] 02:07:36* Test Item Value Reference Range Interpretation Comme nts WBC (test code = 6690-2) 11.77 4.30-11.10 H RBC (test code = 789-8) 3.19 3.93-5.25 L HGB (test code = 718-7) 10.2 g/dL 11.6-15.0 L HCT (test code = 4544-3) 29.1 % 35.7-45.2 L MCV (test code = 787-2) 91.2 fL 80.6-95.5 MCH (test code = 785-6) 32.0 pg 25.9-32.8 MCHC (test code = 786-4) 35.1 g/dL 31.6-35.1 RDW-SD (test code = 07220-2) 42.9 fL 39.0-49.9 RDW-CV (test code = 788-0) 13.1 % 12.0-15.5 PLT (test code = 777-3) 264 166-358 MPV (test code = 76338-9) 10.0 fL 9.5-12.9 NRBC/100 WBC (test code = 7300040372) 0.0 0.0-10.0 NRBC x10^3 (test code = 8360297274) See_Comment [Automated messa ge] The system which generated this result transmitted reference range: 10*3/?L. The reference range was not used to interpret this result as normal/abnormal. GRAN MAT (NEUT) % (test code = 770-8) 81.3 % IMM GRAN % (test code = 8722243201) 0.40 % LYMPH % (test code = 736-9) 13.3 % MONO % (test code = 5905-5) 4.8 % EOS % (test code = 713-8) 0.0 % BASO % (test code = 706-2) 0.2 % GRAN MAT x10^3(ANC) (test code = 9157067331) 9.57 10*3/uL 1.88-7.09 H IMM GRAN x10^3 (test code = 8240021266) 0.05 10*3/uL 0.00-0.06 LYMPH x10^3 (test code = 731-0) 1.56 10*3/uL 1.32-3.29 MONO x10^3 (test code = 742-7) 0.57 10*3/uL 0.33-0.92 EOS x10^3 (test code = 711-2) 0.03-0.39 L BASO x10^3 (test code = 704-7) 0.01-0.07 Lab Interpretation (test code = 45106-9) Abnormal [facility] with [id number] 02:07:36* Test Item Value Reference Range Interpretation Comme nts WBC (test code = 6690-2) 11.77 4.30-11.10 H RBC (test code = 789-8) 3.19 3.93-5.25 L HGB (test code = 718-7) 10.2 g/dL 11.6-15.0 L HCT (test code = 4544-3) 29.1 % 35.7-45.2 L MCV (test code = 787-2) 91.2 fL 80.6-95.5 MCH (test code = 785-6) 32.0 pg 25.9-32.8 MCHC (test code = 786-4) 35.1 g/dL 31.6-35.1 RDW-SD (test code = 89278-2) 42.9 fL 39.0-49.9 RDW-CV (test code = 788-0) 13.1 % 12.0-15.5 PLT (test code = 777-3) 264 166-358 MPV (test code = 87780-1) 10.0 fL 9.5-12.9 NRBC/100 WBC (test code = 7284218263) 0.0 0.0-10.0 NRBC x10^3 (test code = 2914961486) See_Comment [Automated messa ge] The system which generated this result transmitted reference range: 10*3/?L. The reference range was not used to interpret this result as normal/abnormal. GRAN MAT (NEUT) % (test code = 770-8) 81.3 % IMM GRAN % (test code = 0586247215) 0.40 % LYMPH % (test code = 736-9) 13.3 % MONO % (test code = 5905-5) 4.8 % EOS % (test code = 713-8) 0.0 % BASO % (test code = 706-2) 0.2 % GRAN MAT x10^3(ANC) (test code = 2076468269) 9.57 10*3/uL 1.88-7.09 H IMM GRAN x10^3 (test code = 3319543512) 0.05 10*3/uL 0.00-0.06 LYMPH x10^3 (test code = 731-0) 1.56 10*3/uL 1.32-3.29 MONO x10^3 (test code = 742-7) 0.57 10*3/uL 0.33-0.92 EOS x10^3 (test code = 711-2) 0.03-0.39 L BASO x10^3 (test code = 704-7) 0.01-0.07 Lab Interpretation (test code = 90946-1) Abnormal [facility] with [id number] 21:57:32* Test Item Value Reference Range Interpretation Comme nts WBC (test code = 6690-2) 11.86 4.30-11.10 H RBC (test code = 789-8) 3.19 3.93-5.25 L HGB (test code = 718-7) 10.6 g/dL 11.6-15.0 L HCT (test code = 4544-3) 29.5 % 35.7-45.2 L MCV (test code = 787-2) 92.5 fL 80.6-95.5 MCH (test code = 785-6) 33.2 pg 25.9-32.8 H MCHC (test code = 786-4) 35.9 g/dL 31.6-35.1 H RDW-SD (test code = 52304-3) 42.9 fL 39.0-49.9 RDW-CV (test code = 788-0) 12.8 % 12.0-15.5 PLT (test code = 777-3) 262 166-358 MPV (test code = 94065-3) 10.4 fL 9.5-12.9 NRBC/100 WBC (test code = 8016440910) 0.0 0.0-10.0 NRBC x10^3 (test code = 5897282561) See_Comment [Automated message] The system which generated this result transmitted reference range: 10*3/?L. The reference range was not used to interpret this result as normal/abnormal. GRAN MAT (NEUT) % (test code = 770-8) 87.9 % IMM GRAN % (test code = 9306838701) 0.60 % LYMPH % (test code = 736-9) 8.3 % MONO % (test code = 5905-5) 3.1 % EOS % (test code = 713-8) 0.0 % BASO % (test code = 706-2) 0.1 % GRAN MAT x10^3(ANC) (test code = 3604238409) 10.43 10*3/uL 1.88-7.09 H IMM GRAN x10^3 (test code = 3156597634) 0.07 10*3/uL 0.00-0.06 H LYMPH x10^3 (test code = 731-0) 0.98 10*3/uL 1.32-3.29 L MONO x10^3 (test code = 742-7) 0.37 10*3/uL 0.33-0.92 EOS x10^3 (test code = 711-2) 0.03-0.39 L BASO x10^3 (test code = 704-7) 0.01-0.07 Lab Interpretation (test code = 98425-4) Abnormal [facility] with [id number] 21:57:32* Test Item Value Reference Range Interpretation Comme nts WBC (test code = 6690-2) 11.86 4.30-11.10 H RBC (test code = 789-8) 3.19 3.93-5.25 L HGB (test code = 718-7) 10.6 g/dL 11.6-15.0 L HCT (test code = 4544-3) 29.5 % 35.7-45.2 L MCV (test code = 787-2) 92.5 fL 80.6-95.5 MCH (test code = 785-6) 33.2 pg 25.9-32.8 H MCHC (test code = 786-4) 35.9 g/dL 31.6-35.1 H RDW-SD (test code = 81524-8) 42.9 fL 39.0-49.9 RDW-CV (test code = 788-0) 12.8 % 12.0-15.5 PLT (test code = 777-3) 262 166-358 MPV (test code = 56811-6) 10.4 fL 9.5-12.9 NRBC/100 WBC (test code = 8606494790) 0.0 0.0-10.0 NRBC x10^3 (test code = 5302270092) See_Comment [Automated message] The system which generated this result transmitted reference range: 10*3/?L. The reference range was not used to interpret this result as normal/abnormal. GRAN MAT (NEUT) % (test code = 770-8) 87.9 % IMM GRAN % (test code = 9252474423) 0.60 % LYMPH % (test code = 736-9) 8.3 % MONO % (test code = 5905-5) 3.1 % EOS % (test code = 713-8) 0.0 % BASO % (test code = 706-2) 0.1 % GRAN MAT x10^3(ANC) (test code = 6224206146) 10.43 10*3/uL 1.88-7.09 H IMM GRAN x10^3 (test code = 2631043550) 0.07 10*3/uL 0.00-0.06 H LYMPH x10^3 (test code = 731-0) 0.98 10*3/uL 1.32-3.29 L MONO x10^3 (test code = 742-7) 0.37 10*3/uL 0.33-0.92 EOS x10^3 (test code = 711-2) 0.03-0.39 L BASO x10^3 (test code = 704-7) 0.01-0.07 Lab Interpretation (test code = 93192-0) Abnormal [facility] ONLY - SYPHILIS IGG/[id number] 15:21:06* Test Item Value Reference Range Interpretation Comme nts Syphilis IgG/IgM (test code = 61296-8) Nonreactive Nonreactive Syphilis Serology Interpretation (test code = 78221-7) No serologic evidence of syphilis. If recent exposure is suspected, retest in 2 to 4 weeks. ELLE (test code = ELLE) ? [facility] ONLY - SYPHILIS IGG/[id number] 15:21:06* Test Item Value Reference Range Interpretation Comme nts Syphilis IgG/IgM (test code = 95897-5) Nonreactive Nonreactive Syphilis Serology Interpretation (test code = 41286-8) No serologic evidence of syphilis. If recent exposure is suspected, retest in 2 to 4 weeks. ELLE (test code = ELLE) ? [facility] [id number] 03:57:09* Test Item Value Reference Range Interpretation Comme nts RHIG CANDIDATE? (test code = 5188) No- see comment Patient is not a candidate for RhIg- Patient is Rh Positive.Performed at [facility] Laboratory Services - [facility] Blood [address] [place] [address] 164[address]Enyy Free: [phone] No. [id number] [facility] (D) IMMUNE [id number] 03:57:09* Test Item Value Reference Range Interpretation Comme nts RHIG CANDIDATE? (test code = 5188) No- see comment Patient is not a candidate for RhIg- Patient is Rh Positive.Performed at [facility] Laboratory Services - [facility] Blood [address] [place] [address]Hcwh Free: [phone] No. [id number] [facility] Ooi6054-62-12 02:43:39* Test Item Value Reference Range Interpretation Comme nts VENOUS BASE EXCESS, CORD (te st code = 6253295395) -2.9 mEq/L VENOUS PH, CORD (test code = 8165566915) 7.32 7.25-7.45 VENOUS PC02, CORD (test code = 2650009754) 47 27-49 VENOUS PO2, CORD (test code = 8304492813) 21 17-41 VENOUS BICARBONATE, CORD (te st code = 4823848180) [facility] [id number] 02:43:39* Test Item Value Reference Range Interpretation Comme nts VENOUS BASE EXCESS, CORD (te st code = 4531037614) -2.9 mEq/L VENOUS PH, CORD (test code = 8126842663) 7.32 7.25-7.45 VENOUS PC02, CORD (test code = 8712638425) 47 27-49 VENOUS PO2, CORD (test code = 5570104766) 21 17-41 VENOUS BICARBONATE, CORD (te st code = 1688957937) 08-12 [facility] [id number] 02:43:24* Test Item Value Reference Range Interpretation Comme nts BASE EXCESS, CORD (test code = 3227411201) -1.6 mEq/L QUES AC PH, CORD (BEAKER) (test c ode = 4792292918) 7.30 7.18-7.38 PC02, CORD (test code = 5265466823) 55 32-66 PO2, CORD (test code = 2275126304) 23 10-30 BICARBONATE, CORD (test code = 2850597152) [facility] [id number] 02:43:24* Test Item Value Reference Range Interpretation Comme nts BASE EXCESS, CORD (test code = 1801085182) -1.6 mEq/L QUES AC PH, CORD (BEAKER) (test c ode = 7238600597) 7.30 7.18-7.38 PC02, CORD (test code = 9194963684) 55 32-66 PO2, CORD (test code = 8688054656) 23 30 BICARBONATE, CORD (test code = 0891438099) [facility] Pxnwf7291-71-96 19:43:00 Richie Duncan DO ? ? 08/13/2024 ?1:50 PM Central Neuraxial Block Date/Time: 08/13/2024 1:43 PM Performed by: Richie Duncan DOAuthorized by: Katerina Fulton MD ?Patient Location: OBReason for Block: OB request, Patient request, Labor analgesia, Surgical anesthesia and Post-op pain managementStaff: ?Anesthesiologist: Katerina Fulton MD ?Resident/SOFTWARE PACKAGING ENGINEER: Richie Duncan DO ?Performed by: resident/CRNAPreanesthetic Checklist: patient identified, IV checked, risks and benefits explained, monitors and equipment checked, timeout performed, pre-op evaluation, site marked and anesthesia consentProcedure: ?Type of Neuraxial: Epidural ?Epidural Description: 1st attempt ? Sterility Prep cap, gloves, hand hygiene, mask and drape ? ?Sedation Level no sedation ?Prep: Betadine and patient draped ? ?Monitoring: heart rate, continuous pulse ox, heart rate / toco and NIBP ?Location: lumbar (1-5) ?Lumbar: L4-L5 ?Approach: midline ? ?Technique: catheter and REI saline ?Guidance with: landmark technique}Epidural/Spinal [place] and/or Catheter: ?Epidural/Spinal Kit: BBraun ?Needle Type: Tuohy ?Needle Gauge: 17 G ?Needle Length: 3.5 in (8.89 cm) ?Needle Insertion Depth: 4.5 ?Catheter Type: multiport ? ?Catheter Size: 19 G ? ?Catheter at Skin Depth: 9.5 ?Number of Attempts: 1 ?Test Dose: lidocaine 1.5% with epinephrine 1-to-200,000 and negative ? ?Dose: 3 cc ? ?Catheter Securement Method: surgical tape and TegadermAssessment: ?Block Outcome: a full evaluation is pending ? ?Procedure Assessment: patient tolerated procedure well with no complicationsNotes: ? Atraumatic placement. ?Positive REI w/ saline. Aspiration negative for CSF. Catheter secured to pt back. Fall precautions given.[facility] 1/2 AG-AB WITH [id number] 19:06:35* Test Item Value Reference Range Interpretation Comme nts HIV Semi-quantitative (test code = 30673-3) 0.11 Negative ELLE (test code = ELLE) Non-reactive for HIV-1 antigen and HIV-1/HIV-2 antibodies. ?No laboratory evidence of HIV infection. ?Repeat in 2-4 weeks if acute HIV infection is suspected. [facility] 1/2 AG-AB WITH [id number] 19:06:35* Test Item Value Reference Range Interpretation Comme nts HIV Semi-quantitative (test code = 44868-9) 0.11 Negative ELLE (test code = ELLE) Non-reactive for HIV-1 antigen and HIV-1/HIV-2 antibodies. ?No laboratory evidence of HIV infection. ?Repeat in 2-4 weeks if acute HIV infection is suspected. [facility] Surface Ljgvfvc9207-16-45 17:56:31 * Test Item Value Reference Range Interpretation Comme nts HBsAg Semi-Quantitative (mara t code = 5195-3) 0.10 Negative [facility] Fiauogw2546-79-66 17:56:31 * Test Item Value Reference Range Interpretation Comme nts HBsAg Semi-Quantitative (mara t code = 5195-3) 0.10 Negative [facility] with Mlwvtazpignl5517-21-88 17:04:24* Test Item Value Reference Range Interpretation Comme nts WBC (test code = 6690-2) 8.66 4.30-11.10 RBC (test code = 789-8) 4.00 3.93-5.25 HGB (test code = 718-7) 13.0 g/dL 11.6-15.0 HCT (test code = 4544-3) 35.6 % 35.7-45.2 L MCV (test code = 787-2) 89.0 fL 80.6-95.5 MCH (test code = 785-6) 32.5 pg 25.9-32.8 MCHC (test code = 786-4) 36.5 g/dL 31.6-35.1 H RDW-SD (test code = 61968-1) 41.4 fL 39.0-49.9 RDW-CV (test code = 788-0) 12.7 % 12.0-15.5 PLT (test code = 777-3) 292 166-358 MPV (test code = 99318-6) 10.3 fL 9.5-12.9 NRBC/100 WBC (test code = 4935082932) 0.0 0.0-10.0 NRBC x10^3 (test code = 5920308969) See_Comment [Automated messa ge] The system which generated this result transmitted reference range: 10*3/?L. The reference range was not used to interpret this result as normal/abnormal. GRAN MAT (NEUT) % (test code = 770-8) 75.3 % IMM GRAN % (test code = 9432287378) 0.20 % LYMPH % (test code = 736-9) 17.9 % MONO % (test code = 5905-5) 5.8 % EOS % (test code = 713-8) 0.5 % BASO % (test code = 706-2) 0.3 % GRAN MAT x10^3(ANC) (test code = 5440688604) 6.52 10*3/uL 1.88-7.09 IMM GRAN x10^3 (test code = 0185837587) 0.00-0.06 LYMPH x10^3 (test code = 731-0) 1.55 10*3/uL 1.32-3.29 MONO x10^3 (test code = 742-7) 0.50 10*3/uL 0.33-0.92 EOS x10^3 (test code = 711-2) 0.04 10*3/uL 0.03-0.39 BASO x10^3 (test code = 704-7) 0.03 10*3/uL 0.01-0.07 Lab Interpretation (test code = 89725-6) Abnormal [facility] with Mggjrisbekot8751-96-60 17:04:24* Test Item Value Reference Range Interpretation Comme nts WBC (test code = 6690-2) 8.66 4.30-11.10 RBC (test code = 789-8) 4.00 3.93-5.25 HGB (test code = 718-7) 13.0 g/dL 11.6-15.0 HCT (test code = 4544-3) 35.6 % 35.7-45.2 L MCV (test code = 787-2) 89.0 fL 80.6-95.5 MCH (test code = 785-6) 32.5 pg 25.9-32.8 MCHC (test code = 786-4) 36.5 g/dL 31.6-35.1 H RDW-SD (test code = 14866-8) 41.4 fL 39.0-49.9 RDW-CV (test code = 788-0) 12.7 % 12.0-15.5 PLT (test code = 777-3) 292 166-358 MPV (test code = 02048-0) 10.3 fL 9.5-12.9 NRBC/100 WBC (test code = 1759994288) 0.0 0.0-10.0 NRBC x10^3 (test code = 5801290119) See_Comment [Automated messa ge] The system which generated this result transmitted reference range: 10*3/?L. The reference range was not used to interpret this result as normal/abnormal. GRAN MAT (NEUT) % (test code = 770-8) 75.3 % IMM GRAN % (test code = 3406891247) 0.20 % LYMPH % (test code = 736-9) 17.9 % MONO % (test code = 5905-5) 5.8 % EOS % (test code = 713-8) 0.5 % BASO % (test code = 706-2) 0.3 % GRAN MAT x10^3(ANC) (test code = 4482556165) 6.52 10*3/uL 1.88-7.09 IMM GRAN x10^3 (test code = 9727412264) 0.00-0.06 LYMPH x10^3 (test code = 731-0) 1.55 10*3/uL 1.32-3.29 MONO x10^3 (test code = 742-7) 0.50 10*3/uL 0.33-0.92 EOS x10^3 (test code = 711-2) 0.04 10*3/uL 0.03-0.39 BASO x10^3 (test code = 704-7) 0.03 10*3/uL 0.01-0.07 Lab Interpretation (test code = 09337-9) [facility]normal [facility] [id number] 16:36:00 * Test Item Value Reference Range Interpretation Comme nts ABO & RH (test code = 20) O POSITIVE IAT (test code = 1185) Negative [facility] - ONCE [id number] 16:36:00 * Test Item Value Reference Range Interpretation Comme nts ABO & RH (test code = 20) O POSITIVE IAT (test code = 1185) Negative [facility] UR[facility] W SPECIFIC [id number] 20:57:00* Test Item Value Reference Range Interpretation Comme nts POCT U SP GRAV (test code = 3255) . 1.005-1.025 POCT PH U (test code = 3254) . 5-8 POCT U LEUK EST (test code = 3263) . Negative - N egative POCT U NIT (test code = 3262) . Negative - Negati ve POCT U PROT (test code = 3259) trace Negative - Negat raul POCT U GLU (test code = 3256) neg Negative - Negati ve POCT U KETONE (test code = 3258) . Negative - Neg ative POCT U UROBILI (test code = 3260) . 0.2-1 POCT U BILI (test code = 3261) . Negative - Negat raul POCT U BLD (test code = 3257) . Negative - Negati ve POCT U COLOR (test code = 3266) . POCT U APPEAR (test code = 3267) [facility] SPECIFIC [id number] 15:52:00* Test Item Value Reference Range Interpretation Comme nts POCT U SP GRAV (test code = 3255) . 1.005-1.025 POCT PH U (test code = 3254) . 5-8 POCT U LEUK EST (test code = 3263) . Negative - N egative POCT U NIT (test code = 3262) . Negative - Negati ve POCT U PROT (test code = 3259) trace Negative - Negat raul POCT U GLU (test code = 3256) neg Negative - Negati ve POCT U KETONE (test code = 3258) . Negative - Neg ative POCT U UROBILI (test code = 3260) . 0.2-1 POCT U BILI (test code = 3261) . Negative - Negat raul POCT U BLD (test code = 3257) . Negative - Negati ve POCT U COLOR (test code = 3266) . POCT U APPEAR (test code = 3267) [facility] with [id number] 08:39:46* Test Item Value Reference Range Interpretation Comme nts WBC (test code = 6690-2) 8.80 4.30-11.10 RBC (test code = 789-8) 3.88 3.93-5.25 L HGB (test code = 718-7) 12.9 g/dL 11.6-15.0 HCT (test code = 4544-3) 36.7 % 35.7-45.2 MCV (test code = 787-2) 94.6 fL 80.6-95.5 MCH (test code = 785-6) 33.2 pg 25.9-32.8 H MCHC (test code = 786-4) 35.1 g/dL 31.6-35.1 RDW-SD (test code = 59540-9) 43.8 fL 39.0-49.9 RDW-CV (test code = 788-0) 12.8 % 12.0-15.5 PLT (test code = 777-3) 310 166-358 MPV (test code = 43069-9) 10.9 fL 9.5-12.9 NRBC/100 WBC (test code = 0658984398) 0.0 0.0-10.0 NRBC x10^3 (test code = 5556768836) See_Comment [Automated messa ge] The system which generated this result transmitted reference range: 10*3/?L. The reference range was not used to interpret this result as normal/abnormal. GRAN MAT (NEUT) % (test code = 770-8) 73.2 % IMM GRAN % (test code = 2552712180) 0.60 % LYMPH % (test code = 736-9) 18.1 % MONO % (test code = 5905-5) 7.0 % EOS % (test code = 713-8) 0.5 % BASO % (test code = 706-2) 0.6 % GRAN MAT x10^3(ANC) (test code = 3779243322) 6.45 10*3/uL 1.88-7.09 IMM GRAN x10^3 (test code = 5042474330) 0.05 10*3/uL 0.00-0.06 LYMPH x10^3 (test code = 731-0) 1.59 10*3/uL 1.32-3.29 MONO x10^3 (test code = 742-7) 0.62 10*3/uL 0.33-0.92 EOS x10^3 (test code = 711-2) 0.04 10*3/uL 0.03-0.39 BASO x10^3 (test code = 704-7) 0.05 10*3/uL 0.01-0.07 Lab Interpretation (test code = 68652-8) Abnormal [facility] URINALYSIS W SPECIFIC [id number] 17:40:00* Test Item Value Reference Range Interpretation Comme nts POCT U SP GRAV (test code = 3255) . 1.005-1.025 POCT PH U (test code = 3254) . 5-8 POCT U LEUK EST (test code = 3263) . Negative - N egative POCT U NIT (test code = 3262) . Negative - Negati ve POCT U PROT (test code = 3259) trace Negative - Negat raul POCT U GLU (test code = 3256) neg Negative - Negati ve POCT U KETONE (test code = 3258) . Negative - Neg ative POCT U UROBILI (test code = 3260) . 0.2-1 POCT U BILI (test code = 3261) . Negative - Negat raul POCT U BLD (test code = 3257) . Negative - Negati ve POCT U COLOR (test code = 3266) POCT U APPEAR (test code = 3267) [facility] URINALYSIS W SPECIFIC [id number] 17:23:00* Test Item Value Reference Range Interpretation Comme nts POCT U SP GRAV (test code = 3255) . 1.005-1.025 POCT PH U (test code = 3254) . 5-8 POCT U LEUK EST (test code = 3263) . Negative - N egative POCT U NIT (test code = 3262) . Negative - Negati ve POCT U PROT (test code = 3259) trace Negative - Negat raul POCT U GLU (test code = 3256) neg Negative - Negati ve POCT U KETONE (test code = 3258) . Negative - Neg ative POCT U UROBILI (test code = 3260) . 0.2-1 POCT U BILI (test code = 3261) . Negative - Negat raul POCT U BLD (test code = 3257) . Negative - Negati ve POCT U COLOR (test code = 3266) . POCT U APPEAR (test code = 3267) [facility] URINALYSIS W SPECIFIC [id number] 17:43:00* Test Item Value Reference Range Interpretation Comme nts POCT U SP GRAV (test code = 3255) . 1.005-1.025 POCT PH U (test code = 3254) . 5-8 POCT U LEUK EST (test code = 3263) . Negative - N egative POCT U NIT (test code = 3262) . Negative - Negati ve POCT U PROT (test code = 3259) neg Negative - Negat raul POCT U GLU (test code = 3256) neg Negative - Negati ve POCT U KETONE (test code = 3258) . Negative - Neg ative POCT U UROBILI (test code = 3260) . 0.2-1 POCT U BILI (test code = 3261) . Negative - Negat raul POCT U BLD (test code = 3257) . Negative - Negati ve POCT U COLOR (test code = 3266) . POCT U APPEAR (test code = 3267) . [facility] W SPECIFIC [id number] 15:37:00* Test Item Value Reference Range Interpretation Comme nts POCT U SP GRAV (test code = 3255) . 1.005-1.025 POCT PH U (test code = 3254) . 5-8 POCT U LEUK EST (test code = 3263) . Negative - N egative POCT U NIT (test code = 3262) . Negative - Negati ve POCT U PROT (test code = 3259) trace Negative - Negat raul POCT U GLU (test code = 3256) neg Negative - Negati ve POCT U KETONE (test code = 3258) . Negative - Neg ative POCT U UROBILI (test code = 3260) . 0.2-1 POCT U BILI (test code = 3261) . Negative - Negat raul POCT U BLD (test code = 3257) . Negative - Negati ve POCT U COLOR (test code = 3266) . POCT U APPEAR (test code = 3267) . [facility]burgGlucose 1 Hour Post Idetlcue6110-69-45 04:54:59* Test Item Value Reference Range Interpretation Comme nts GLUC 1 HR (test code = 5750689290) 107 mg/dL 120-170 L Lab Interpretation (test cod e = 98977-4) Abnormal [facility] with Hcjaahvmxvwv2486-34-66 03:39:26* Test Item Value Reference Range Interpretation Comme nts WBC (test code = 6690-2) 9.37 4.30-11.10 RBC (test code = 789-8) 3.72 3.93-5.25 L HGB (test code = 718-7) 12.5 g/dL 11.6-15.0 HCT (test code = 4544-3) 35.2 % 35.7-45.2 L MCV (test code = 787-2) 94.6 fL 80.6-95.5 MCH (test code = 785-6) 33.6 pg 25.9-32.8 H MCHC (test code = 786-4) 35.5 g/dL 31.6-35.1 H RDW-SD (test code = 09375-4) 45.2 fL 39.0-49.9 RDW-CV (test code = 788-0) 13.2 % 12.0-15.5 PLT (test code = 777-3) 286 166-358 MPV (test code = 16435-7) 10.4 fL 9.5-12.9 NRBC/100 WBC (test code = 4474291374) 0.0 0.0-10.0 NRBC x10^3 (test code = 1078403545) See_Comment [Automated messa ge] The system which generated this result transmitted reference range: 10*3/?L. The reference range was not used to interpret this result as normal/abnormal. GRAN MAT (NEUT) % (test code = 770-8) 76.6 % IMM GRAN % (test code = 9697912502) 0.40 % LYMPH % (test code = 736-9) 16.8 % MONO % (test code = 5905-5) 5.5 % EOS % (test code = 713-8) 0.4 % BASO % (test code = 706-2) 0.3 % GRAN MAT x10^3(ANC) (test code = 9113457096) 7.17 10*3/uL 1.88-7.09 H IMM GRAN x10^3 (test code = 0736767763) 0.04 10*3/uL 0.00-0.06 LYMPH x10^3 (test code = 731-0) 1.57 10*3/uL 1.32-3.29 MONO x10^3 (test code = 742-7) 0.52 10*3/uL 0.33-0.92 EOS x10^3 (test code = 711-2) 0.04 10*3/uL 0.03-0.39 BASO x10^3 (test code = 704-7) 0.03 10*3/uL 0.01-0.07 Lab Interpretation (test code = 76247-7) Abnormal [facility] URINALYSIS W SPECIFIC [id number] 17:36:00* Test Item Value Reference Range Interpretation Comme nts POCT U SP GRAV (test code = 3255) . 1.005-1.025 POCT PH U (test code = 3254) . 5-8 POCT U LEUK EST (test code = 3263) . Negative - N egative POCT U NIT (test code = 3262) . Negative - Negati ve POCT U PROT (test code = 3259) trace Negative - Negat raul POCT U GLU (test code = 3256) neg Negative - Negati ve POCT U KETONE (test code = 3258) . Negative - Neg ative POCT U UROBILI (test code = 3260) . 0.2-1 POCT U BILI (test code = 3261) . Negative - Negat raul POCT U BLD (test code = 3257) . Negative - Negati ve POCT U COLOR (test code = 3266) . POCT U APPEAR (test code = 3267) [facility] URINALYSIS W SPECIFIC [id number] 16:45:00* Test Item Value Reference Range Interpretation Comme nts POCT U SP GRAV (test code = 3255) . 1.005-1.025 POCT PH U (test code = 3254) . 5-8 POCT U LEUK EST (test code = 3263) . Negative - N egative POCT U NIT (test code = 3262) . Negative - Negati ve POCT U PROT (test code = 3259) Trace Negative - Negat raul POCT U GLU (test code = 3256) Nml Negative - Negati ve POCT U KETONE (test code = 3258) . Negative - Neg ative POCT U UROBILI (test code = 3260) . 0.2-1 POCT U BILI (test code = 3261) . Negative - Negat raul POCT U BLD (test code = 3257) . Negative - Negati ve POCT U COLOR (test code = 3266) . POCT U APPEAR (test code = 3267) .. [facility] URINALYSIS W SPECIFIC [id number] 21:00:00* Test Item Value Reference Range Interpretation Comme nts POCT U SP GRAV (test code = 3255) . 1.005-1.025 POCT PH U (test code = 3254) . 5-8 POCT U LEUK EST (test code = 3263) . Negative - N egative POCT U NIT (test code = 3262) . Negative - Negati ve POCT U PROT (test code = 3259) trace Negative - Negat raul POCT U GLU (test code = 3256) neg Negative - Negati ve POCT U KETONE (test code = 3258) . Negative - Neg ative POCT U UROBILI (test code = 3260) . 0.2-1 POCT U BILI (test code = 3261) . Negative - Negat raul POCT U BLD (test code = 3257) . Negative - Negati ve POCT U COLOR (test code = 3266) POCT U APPEAR (test code = 3267) [facility] URINALYSIS W SPECIFIC [id number] 16:08:00* Test Item Value Reference Range Interpretation Comme nts POCT U SP GRAV (test code = 3255) . 1.005-1.025 POCT PH U (test code = 3254) . 5-8 POCT U LEUK EST (test code = 3263) . Negative - N egative POCT U NIT (test code = 3262) . Negative - Negati ve POCT U PROT (test code = 3259) trace Negative - Negat raul POCT U GLU (test code = 3256) neg Negative - Negati ve POCT U KETONE (test code = 3258) . Negative - Neg ative POCT U UROBILI (test code = 3260) . 0.2-1 POCT U BILI (test code = 3261) . Negative - Negat raul POCT U BLD (test code = 3257) . Negative - Negati ve POCT U COLOR (test code = 3266) POCT U APPEAR (test code = 3267) [facility] [id number] 17:58:00* Test Item Value Reference Range Interpretation Comme nts POCT PREG (test code = 1605) Positive On board controls acceptable with C Line (test code = 3574) Yes POCT PREG LOT # (test code = 3575) POCT PREG TEST DATE ( test code = 3576) [facility] Urinalysis w/o Specific [id number] 17:58:00* Test Item Value Reference Range Interpretation Comme nts POCT PH U (test code = 3254) 8 mg/dl 5-8 POCT U LEUK EST (test code = 3263) trace Negative - Negative POCT U NIT (test code = 3262) neg Negative - Negati ve POCT U PROT (test code = 3259) trace Negative - Negat raul POCT U GLU (test code = 3256) neg Negative - Negati ve POCT U KETONE (test code = 3258) neg Negative - Neg ative POCT U BLD (test code = 3257) neg Negative - Negati ve [facility] [id number] 17:58:00* Test Item Value Reference Range Interpretation Comme nts POCT PREG (test code = 1605) Positive On board controls acceptable with C Line (test code = 3574) Yes POCT PREG LOT # (test code = 3575) POCT PREG TEST DATE ( test code = 3576) [facility] Urinalysis w/o Specific [id number] 17:58:00* Test Item Value Reference Range Interpretation Comme nts POCT PH U (test code = 3254) 8 mg/dl 5-8 POCT U LEUK EST (test code = 3263) trace Negative - Negative POCT U NIT (test code = 3262) neg Negative - Negati ve POCT U PROT (test code = 3259) trace Negative - Negat raul POCT U GLU (test code = 3256) neg Negative - Negati ve POCT U KETONE (test code = 3258) neg Negative - Neg ative POCT U BLD (test code = 3257) neg Negative - Negati ve [facility] [id number] 17:58:00* Test Item Value Reference Range Interpretation Comme nts POCT PREG (test code = 1605) Positive On board controls acceptable with C Line (test code = 3574) Yes POCT PREG LOT # (test code = 3575) POCT PREG TEST DATE ( test code = 3576) [facility] Urinalysis w/o Specific [id number] 17:58:00* Test Item Value Reference Range Interpretation Comme nts POCT PH U (test code = 3254) 8 mg/dl 5-8 POCT U LEUK EST (test code = 3263) trace Negative - Negative POCT U NIT (test code = 3262) neg Negative - Negati ve POCT U PROT (test code = 3259) trace Negative - Negat raul POCT U GLU (test code = 3256) neg Negative - Negati ve POCT U KETONE (test code = 3258) neg Negative - Neg ative POCT U BLD (test code = 3257) neg Negative - Negati ve [facility] [id number] 20:28:00* Test Item Value Reference Range Interpretation Comme nts POCT PREG (test code = 1605) Negative On board controls acceptable with C Line (test code = 3574) Yes POCT PREG LOT # (test code = 3575) POCT PREG TEST DATE ( test code = 3576) [facility] [id number] 17:07:00* Test Item Value Reference Range Interpretation Comme nts POCT PREG (test code = 1605) Negative On board controls acceptable with C Line (test code = 3574) Yes POCT PREG LOT # (test code = 3575) POCT PREG TEST DATE ( test code = 3576) [facility] [id number] 17:07:00* Test Item Value Reference Range Interpretation Comme nts POCT PREG (test code = 1605) Negative On board controls acceptable with C Line (test code = 3574) Yes POCT PREG LOT # (test code = 3575) POCT PREG TEST DATE ( test code = 3576) [facility] [id number] 15:28:00* Test Item Value Reference Range Interpretation Comme nts POCT PREG (test code = 1605) Negative On board controls acceptable with C Line (test code = 3574) Yes POCT PREG LOT # (test code = 3575) POCT PREG TEST DATE ( test code = 3576) [facility] [id number] 15:28:00* Test Item Value Reference Range Interpretation Comme nts POCT PREG (test code = 1605) Negative On board controls acceptable with C Line (test code = 3574) Yes POCT PREG LOT # (test code = 3575) POCT PREG TEST DATE ( test code = 3576) [facility] ONLY - SYPHILIS [id number] 14:24:30* Test Item Value Reference Range Interpretation Comme nts Syphilis IgG/IgM (test code = 86099-5) Non-reactive Non-reactive ELLE (test code = ELLE) Non-reactive - No serologic evidence of T. pallidum infection. Cannot exclude incubating or early syphilis. Submit a second specimen in 2-4 weeks if syphilis is clinically suspected. Equivocal - Further testing to follow. Reactive - Further testing to follow. Lab Interpretation (test code = 86834-1) Normal [facility] ONLY - SYPHILIS [id number] 14:24:30* Test Item Value Reference Range Interpretation Comme nts Syphilis IgG/IgM (test code = 58249-8) Non-reactive Non-reactive ELLE (test code = ELLE) Non-reactive - No serologic evidence of T. pallidum infection. Cannot exclude incubating or early syphilis. Submit a second specimen in 2-4 weeks if syphilis is clinically suspected. Equivocal - Further testing to follow. Reactive - Further testing to follow. Lab Interpretation (test code = 50738-5) Normal [facility] 1/2 AG-AB WITH [id number] 05:02:24* Test Item Value Reference Range Interpretation Comme nts HIV Semi-quantitative (test code = 94969-7) Negative Negative ELLE (test code = ELLE) Non-reactive for HIV-1 antigen and HIV-1/HIV-2 antibodies. ?No laboratory evidence of HIV infection. ?Repeat in 2-4 weeks if acute HIV infection is suspected. [facility] 1/2 AG-AB WITH [id number] 05:02:24* Test Item Value Reference Range Interpretation Comme nts HIV Semi-quantitative (test code = 15976-3) Negative Negative ELLE (test code = ELLE) Non-reactive for HIV-1 antigen and HIV-1/HIV-2 antibodies. ?No laboratory evidence of HIV infection. ?Repeat in 2-4 weeks if acute HIV infection is suspected. [facility] 05:25:00* Test Item Value Reference Range Interpretation Comme nts APPEARANCE (test code = 8138904359) Clear Clear COLOR (test code = 0760521600) Straw Yellow A PH (test code = 8550532858) 4.8-8.0 SP GRAVITY (test code = 0236808304) 1.003-1.030 GLU U QUAL (test code = 7828915416) Normal Normal BLOOD (test code = 4236240305) Negative Negative KETONES (test code = 6087655983) Negative Negative PROTEIN (test code = 2887-8) Negative Negative UROBILIN (test code = 0701244722) Normal Normal BILIRUBIN (test code = 6544230184) Negative Negative NITRITE (test code = 7460877200) Negative Negative LEUK LOU (test code = 1787716087) Negative Negative RBC/HPF (test code = 0710638586) See_Comment [Automated [employer]] The system which generated this result transmitted reference range: 0 - 3 HPF. The reference range was not used to interpret this result as normal/abnormal. WBC/HPF (test code = 8368021141) See_Comment [Automated [employer]] The system which generated this result transmitted reference range: 0 - 5 HPF. The reference range was not used to interpret this result as normal/abnormal. BACTERIA (test code = 2893459509) Few Negative A MUCOUS (test code = 9970627293) Slight Negative LPF A SQ EPITH (test code = 8531793804) HPF Lab Interpretation (test code = 75465-6) Abnormal [facility] [id number] 05:08:00* Test Item Value Reference Range Interpretation Comme nts POCT PREG (test code = 1605) negative On board controls acceptable with C Line (test code = 3574) positive POCT PREG LOT # (test code = 3575) [id number] POCT PREG TEST DATE ( test code = 3576) 04-14-2021 Lab Interpretation (test cod e = 79277-3) [facility]17 04:32:00* Test Item Value Reference Range Interpretation Comme nts MAGNESIUM (test code = 1882837455) 2.0 mg/dL 1.7-2.4 Lab Interpretation (test cod e = 37379-9) Normal [facility]. METABOLIC PANEL (36658)2019-11-30 04:31:00* Test Item Value Reference Range Interpretation Comme nts NA (test code = 5727358398) 141 mmol/L 135-145 K (test code = 6565980973) 3.1 mmol/L 3.5-5 L CL (test code = 0433307140) 103 mmol/L 98-108 CO2 TOTAL (test code = 0659088864) 25 mmol/L 23-31 AGAP (test code = 1563585404) 2-16 BUN (test code = 5878037089) 10 mg/dL 7-23 GLUCOSE (test code = 4122244561) 147 mg/dL 70-110 H CREATININE (test code = 8497356425) 0.52 mg/dL 0.5-1.04 TOTAL BILI (test code = 1510987435) 0.5 mg/dL 0.1-1.1 CALCIUM (test code = 9717365084) 9.0 mg/dL 8.6-10.6 T PROTEIN (test code = 3882346053) 8.2 g/dL 6.3-8.2 ALBUMIN (test code = 8944330850) 5.0 g/dL 3.5-5 ALK PHOS (test code = 7015965848) 104 U/L 34-122 ALTv (test code = 1742-6) 27 U/L 5-35 AST(SGOT) (test code = 8414858479) 38 U/L 13-40 eGFR Calculation (Non-) (test code = 8688784547) mL/min/1.73m2 eGFR Calculation () (test code = 6384802848) mL/min/1.73m2 ELLE (test code = ELLE) Association [...] imaging tests). Lab Interpretation (test code = 88561-4) [facility]normal [facility]2020-04-17 04:31:00* Test Item Value Reference Range Interpretation Comme nts LIPASE (test code = 0654047065) 84 U/L 0-220 Lab Interpretation (test cod e = 71329-7) Normal [facility] WITH [id number] 04:20:00* Test Item Value Reference Range Interpretation Comme nts WBC (test code = 6690-2) See_Comment [Automated [employer]] The system which generated this result transmitted reference range: 4.30 - 11.10 10*3/?L. The reference range was not used to interpret this result as normal/abnormal. RBC (test code = 789-8) See_Comment [Automated [employer]] The system which generated this result transmitted [...] 34.7 g/dL 31.6-35.1 RDW-SD (test code = 65721-5) 40.3 fL 39-49.9 RDW-CV (test code = 788-0) 12.0 % 12-15.5 PLT (test code = 777-3) See_Comment [Automated messa ge] The system which generated this result transmitted reference range: 166 - 358 10*3/?L. The reference range was not used to interpret this result as normal/abnormal. MPV (test code = 50934-9) 10.5 fL 9.5-12.9 NRBC/100 WBC (test code = 7736814682) See_Comment [Automated me ssage] The system which generated this result transmitted reference range: 0.0 - 10.0 /100 WBCs. The reference range was not used to interpret this result as normal/abnormal. NRBC x10^3 (test code = 7310668528) <0.01 See_Comment [Automated me ssage] The system which generated this result transmitted reference range: 10*3/?L. The reference range was not used to interpret this result as normal/abnormal. GRAN MAT (NEUT) % (test code = 770-8) 57.7 % IMM GRAN % (test code = 7798437473) 0.40 % LYMPH % (test code = 736-9) 36.8 % MONO % (test code = 5905-5) 4.3 % EOS % (test code = 713-8) 0.5 % BASO % (test code = 706-2) 0.3 % GRAN MAT x10^3(ANC) (test code = 0124677099) 4.38 10*3/uL 1.88-7.09 IMM GRAN x10^3 (test code = 5609422724) 0.03 10*3/uL 0-0.06 LYMPH x10^3 (test code = 731-0) 2.79 10*3/uL 1.32-3.29 MONO x10^3 (test code = 742-7) 0.33 10*3/uL 0.33-0.92 EOS x10^3 (test code = 711-2) 0.04 10*3/uL 0.03-0.39 BASO x10^3 (test code = 704-7) <0.03 0.01-0.07 [facility] Consult Notes Date/Time Note Provider Source 2024-08-15 09:58:19 Associated Order(s): CONSULT ROAD TRAFFIC CONTROLLER-ADULT Images from the original note were not included. Reason for consult - please give recommendation or opinion on: Pt EPDS result is 12 with 0 score on self-harm. CARE MANAGEMENT Care Coordinators/Social Workers/CM Specialists/Utilization Review/Patient Placement & Transfer Center 08/15/2024 9:58 AM SW spoke with patient, via translator interpreter, Elijah ID# [id number], regarding consult. SW explained patient score and asked if she has experienced PPD in the past. Patient admitted to SW that she has felt PPD in the past when she had her 6 year old daughter. SW asked patient if she was ever prescribed medication. Patient told SW she has never taken anything in the past but this time she is prescribed 10 mg hydroxyzine. SW asked patient if she would like additional mental health resources but she declined. Patient told SW she believes the medication will be enough to help her. Patient had no further questions/needs. Liza López LMSW [facility] Nut Sifter [phone] [email or web address] Available Fri - Sun IT ADMINISTRATION OFFICER Liza López LMSW [facility] - Health History and Physical Notes Date/Time Note Provider Source 2024-08-13 09:58:35 TRIAGE/L&D HISTORY & PHYSICAL IDENTIFYING DATA Salome Azevedo is 38 year old, /White, 39w1d, female with RONALD 08/19/2024, by Ultrasound. : 1985 Primary Care Physician: Kevin Montalvo CHIEF COMPLAINT Scheduled IOL HISTORY OF PRESENT ILLNESS Salome Azevedo is a 38 year old at 39w1d who presents for scheduled IOL. Patient denies vaginal bleeding, denies leakage of fluid, denies contractions. Patient denies headache, denies nausea/vomiting, denies RUQ pain, denies visual abnormalities. Endorses normal movement. PAST OBSTETRIC HISTORY OB History Para Term AB Living 6 5 4 1 0 5 SAB IAB Ectopic Multiple Live Births 0 0 0 0 5 # Outcome Date GA Lbr Larry/2nd Weight Sex Type Anes PTL Lv 6 Current 5 Term 09/09/18 39w0d 3130 g F VAGINAL EPI DANITA 4 Term 05/09/17 37w0d 2830 g F VAGINAL None DANITA Complications: Cholestasis 3 Term 12/27/14 38w0d 2495 g F NORMAL SPONT None DANITA 2 04/02/10 35w0d 06:00 2041 g M NORMAL SPONT EPIDURAL DANITA 1 Term 03/23/06 40w0d 03:00 2722 g F NORMAL SPONT EPIDURAL DANITA PAST MEDICAL HISTORY Problem list: Patient Active Problem List Diagnosis Date Noted 39 weeks gestation of 08/13/2024 Supervision of high-risk of elderly multigravida 01/04/2024 Multiparity 01/04/2024 History of delivery 01/04/2024 History of cholestasis during 01/04/2024 Need for HPV vaccination 09/14/2023 Bacterial vaginosis 12/27/2019 Operations: Past Surgical History: Procedure Laterality Date MINI LAPAROSCOPIC CHOLECYSECTOMY 01/31/2015 Past Medical History: Diagnosis Date Bacterial vaginosis 12/27/2019 Cholestasis during 05/09/2017 mood disturbance 09/13/2018 pt states her pp depression is resolving. Screening for STDs (sexually transmitted diseases) CURRENT HEALTH STATUS Medications: Current Facility-Administered Medications Medication Dose Route Frequency Last Rate Last Admin D5W-LR IV infusion 1,000 mL 1,000 mL IV Infusion TITRATE 75 mL/hr at 08/13/24 1136 1,000 mL at 08/13/24 1136 lactated ringers IV infusion 250 mL 250 mL IV Infusion PRN - SEE INSTRUCTIONS lidocaine 1% (PF) (XYLOCAINE) injection 0.3 mL 0.3 mL Infiltration PRN - SEE INSTRUCTIONS lidocaine 1% (XYLOCAINE) 10 mg/mL (1 %) injection 50 mL 50 mL Infiltration PRN - SEE INSTRUCTIONS oxytocin (PITOCIN) 30 units in NS 500 mL IV infusion 2-40 gama-units/min IV Infusion TITRATE sodium citrate-citric acid (BICITRA) 500-334 mg/5 mL solution 30 mL 30 mL Oral PRE-PROCEDURE ONCE Allergies and drug reactions: Patient has no known allergies. HOME MEDICATIONS No medications prior to admission. SOCIAL HISTORY Tobacco History: Social History Tobacco Use Smoking Status Former Current packs/day: 0.00 Types: Cigarettes Quit date: 03/15/2014 Years since quittin.4 Smokeless Tobacco Never Drug History: Social History Substance and Sexual Activity Drug Use No Alcohol History: Social History Substance and Sexual Activity Alcohol Use Not Currently FAMILY HISTORY Family History Problem Relation Age of Onset High cholesterol Mother Hypertension Mother Diabetes Mother No Significant Medical Problems Father No Significant Medical Problems Brother No Significant Medical Problems Maternal Aunt No Significant Medical Problems Maternal Uncle No Significant Medical Problems Paternal Aunt No Significant Medical Problems Paternal Uncle No Significant Medical Problems Paternal Grandfather Arthritis NoFHx Asthma NoFHx defects NoFHx Breast Cancer NoFHx Colon Cancer NoFHx Ovarian Cancer NoFHx Uterine Cancer NoFHx Cancer NoFHx Depression NoFHx Genetic NoFHx Heart NoFHx Mental retardation NoFHx Neurological NoFHx Osteoporosis NoFHx Psychiatry NoFHx REVIEW OF SYSTEMS General: negative Skin: negative HEENT: negative Neck: negative HEME: negative Resp: negative Cardio: negative GI: negative : negative Endo: negative Neuro: negative Back: negative DEVIN: negative Psych: negative VITAL SIGNS BP: (122-125)/(85-88) Temp: [36.7 ?C (98.1 ?F)] Temp source: Axillary (08/13 1015) Pulse: [72-80] Resp: [18] SpO2: [97 %-99 %] Height: [167.6 cm (5' 6")] Weight: [65.5 kg (144 lb 4.8 oz)] BMI (calculated): [23.29] PHYSICAL EXAMINATIONS General: patient alert and in no acute distress HEENT: symmetric, negative for masses Lungs: unlabored breathing Breast: deferred Cardiology: peripheral pulses intact and regular Abdomen: soft, non-tender, non-distended, no liver, spleen or abnormal masses palpated and Gravid Extremities: no clubbing, cyanosis, or edema Neuro: patient moving all extremities, no facial droop : SVE 4/50/-3 REVIEW OF LABORATORY, PATHOLOGY, AND RADIOLOGY DATA Lab results: Type & Screen Lab Results Component Value Date/Time IABORH O POSITIVE 08/13/2024 10:30 AM IAT Negative 08/13/2024 10:30 AM Serologies Lab Results Component Value Date/Time VZVIGG Positive 04/18/2024 11:35 AM HIVMULTIPLEX Non-reactive 06/28/2018 10:44 AM RUBG Positive 01/04/2024 02:10 AM RUBG POSITIVE 06/19/2014 03:27 PM SYPIGG Non-reactive 06/13/2024 11:20 AM SYPIGG Nonreactive 02/08/2018 10:53 AM HBSAG Negative 01/04/2024 02:10 AM HBSAG 0.08 01/04/2024 02:10 AM Chlamydia Lab Results Component Value Date/Time VCAA Negative 07/25/2024 11:40 AM VCAA NEGATIVE 06/19/2014 03:37 PM Group B Strep Lab Results Component Value Date/Time CGB Negative 07/25/2024 11:55 AM CGB POSITIVE (A) 12/11/2014 12:30 PM GTT Lab Results Component Value Date/Time ASYX4PJ 107 (L) 05/16/2024 11:47 AM CBC Lab Results Component Value Date/Time HGB 13.0 08/13/2024 10:30 AM HGB 12.1 12/28/2014 04:23 AM HCT 35.6 (L) 08/13/2024 10:30 AM HCT 33.8 (L) 12/28/2014 04:23 AM PLT 292 08/13/2024 10:30 AM PLT 248 12/28/2014 04:23 AM Active Hospital Problems Diagnosis Date Noted 39 weeks gestation of 08/13/2024 History of cholestasis during 01/04/2024 With 2017 Resolved Hospital Problems No resolved problems to display. Present on Admission: History of cholestasis during 39 weeks gestation of Placenta Accreta Screening Prior ? : No Prior Uterine Surgery?: No Placenta low lying/previa in current ? : No Screening outcome: A positive screening outcome indicates a history of prior delivery or prior uterine surgery, AND the presence of either a placenta low lying/previa or ultrasound suspicion of PASD in the current . Negative screening. ASSESSMENT AND PLAN Salome Azevedo is a 38 year old at 39w1d by d/u (18) who presents for scheduled IOL. sIOL - (-) Vaginal Bleeding, (-) Leakage of Fluid, (-) Contractions, (+) Movement - SVE: 4 / 50 % / -3 Plan: - Admit for IOL. Plan for Pitocin. - Epidural Plans: Undecided DPS - Patient desires permanent sterilization - Medicaid consents signed on 05/16/2024 - Patient counseled on admission, does not wish to proceed with procedure - See separate counseling note History of Cholestasis in - Bile acids: 2 on 07/18 - Hepatic function panel WNL - Endorses itchiness on palms and chest Antepartum course reviewed - 1 h 107, sero negative, Rimmune, VZVimmune, HPV not immune (needs 1 more dose), O positive/IAT negative, GBS negative, Pap NILM/HR HPV neg 2020 - H/H, plt: 12.9 / 36.7, 310 on 07/24/24 - PP control plan: BTL - [place] [facility] Fetus - Presentation on admission: cephalic - posterior placenta - EFW: 3445 g, 49%tile, DVP 4.1 cm - FHT reactive and reassuring - Normal anatomy scan D/w Dr. Rosibel Husain MD OBGYN PGY-1 IT ADMINISTRATION OFFICER Associated attestation - Praveena Houser MD - 08/13/2024 4:59 PM CREDIT ADMINISTRATION OFFICER I was the faculty on L&D on 08/13/2024. I agree with the residents' assessment and plan. Praveena Houser MD [facility] - Health Procedure Notes Date/Time Note Provider Source 2024-08-13 13:43:50 Associated Order(s): Central Neuraxial Block Central Neuraxial Block Date/Time: 08/13/2024 1:43 PM Performed by: Richie Duncan DO Authorized by: Katerina Fulton MD Patient Location: OB Reason for Block: OB request, Patient request, Labor analgesia, Surgical anesthesia and Post-op pain management Staff: Anesthesiologist: Katerina Fulton MD Resident/SOFTWARE PACKAGING ENGINEER: Richie Duncan DO Performed by: resident/SOFTWARE PACKAGING ENGINEER Preanesthetic Checklist: patient identified, IV checked, risks and benefits explained, monitors and equipment checked, timeout performed, pre-op evaluation, site marked and anesthesia consent Procedure: Type of Neuraxial: Epidural Epidural Description: 1st attempt Sterility Prep cap, gloves, hand hygiene, mask and drape Sedation Level no sedation Prep: Betadine and patient draped Monitoring: heart rate, continuous pulse ox, heart rate / toco and NIBP Location: lumbar (1-5) Lumbar: L4-L5 Approach: midline Technique: catheter and REI saline Guidance with: landmark technique} Epidural/Spinal [place] and/or Catheter: Epidural/Spinal Kit: Juan Antonioun Needle Type: Tuohy Needle Gauge: 17 G Needle Length: 3.5 in (8.89 cm) Needle Insertion Depth: 4.5 Catheter Type: multiport Catheter Size: 19 G Catheter at Skin Depth: 9.5 Number of Attempts: 1 Test Dose: lidocaine 1.5% with epinephrine 1-to-200,000 and negative Dose: 3 cc Catheter Securement Method: surgical tape and Tegaderm Assessment: Block Outcome: a full evaluation is pending Procedure Assessment: patient tolerated procedure well with no complications Notes: Atraumatic placement. Positive REI w/ saline. Aspiration negative for CSF. Catheter secured to pt back. Fall precautions given. IT ADMINISTRATION OFFICER ANESTHESIOLOGY [facility] Notes Date/Time Note Provider Source Abisai Farmer [facility]2025-01-01 15:52:42 Problem: Falls, Risk of Goal: Absence of falls Outcome: Adequate for discharge Problem: Discharge Planning - Goal: Adequate for discharge Outcome: Adequate for discharge Goal: Mood stable Outcome: Adequate for discharge Problem: Pain Goal: Control of pain at or below patient's documented comfort goal Outcome: Adequate for discharge Goal: Reduction in pain sensation Outcome: Adequate for discharge Problem: Breast-feeding - Ineffective Goal: Effective breast-feeding Outcome: Adequate for discharge IT ADMINISTRATION OFFICER [id number] 06:13:55 Problem: Falls, Risk of Goal: Absence of falls Outcome: Progressing as expected Problem: Discharge Planning - Goal: Adequate for discharge Outcome: Progressing as expected Goal: Mood stable Outcome: Progressing as expected Problem: Pain Goal: Control of pain at or below patient's documented comfort goal Outcome: Progressing as expected Goal: Reduction in pain sensation Outcome: Progressing as expected Problem: Breast-feeding - Ineffective Goal: Effective breast-feeding Outcome: Progressing as expected Problem: Complications of hemorrhage (risk or actual) Goal: Absence of active bleeding Outcome: Progressing as expected Goal: Absence of complications Outcome: Progressing as expected IT ADMINISTRATION OFFICER [facility] CenterPiriob8308-66-65 18:00:00 Images from the original note were not included. This note was copied from a baby's chart. 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 Liquid Used No daughter in room is bilingual and offered to Interpret this visit Gestational age 41 weeks 6 Parity 6 Living Children 6 Feeding plan Breast and Formula Breastfeed previously Yes Duration 3 months Notes reports history of mastitis Financial Class Chip;[facility] Delivery method ;BTL Risk factors AMA Infant Oral Assessment Date of 08/13/24 Time of 2020 location Mother Baby Unit asleep in crib Literature Resources Resources guide;Understanding Mother and Baby Care; channel Education 6 months exclusive , up to and beyond 1 year with complimentary foods;Infant hunger cues;On-demand feeds at least 8 or more over 24 hours;Diaper counts/color;Hand expression;Risk of formula supplementation;Risks of mastitis and signs, seek medical attention immediately;Delay of pacifier/artificial nipples up to 4 weeks;Benefits of skin to skin contact;Encouraged rooming-in;Waking techniques;Signs of an effective latch;2nd day/growth spurt cluster feeds;Lactogenesis;Benefits of breast massage and hand expression Cloth Bolt Bander Observation Reported;Mom states latches well with no pain Follow up Mom will call staff;[facility];REHABILITATION [facility] warmline;[facility] Recommended Feeding Plan Recommended feeding plan On-demand , 8-12 times in 24 hours not to exceed 6 hours between feeds;Frequent enfj-fm-etxi time with parents;Mother choosing to supplement with formula after breastfeeds;Offer both breasts prior to formula supplementation OTHER $ SERVICES Initial Vivian Polanco RN, BSN, IBCLC IT ADMINISTRATION OFFICER Vivian Polanco [id number] 17:52:42 Problem: Falls, Risk of Goal: Absence of falls Outcome: Progressing as expected Problem: Discharge Planning - Goal: Mood stable Outcome: Progressing as expected Problem: Breast-feeding - Ineffective Goal: Effective breast-feeding Outcome: Progressing as expected IT ADMINISTRATION OFFICER Maddy Gonzalez [place] [id number] 08:14:00 Bilateral Tubal Ligation Operative Note Date: 08/14/2024 Preoperative Diagnosis: Desires permanent sterilization Postoperative Diagnosis: Desires permanent sterilization Procedure: Modified Becca bilateral tubal ligation Surgeon: Arabella Husain MD Senior Instrumentation Engineer Surgeon: Brenton Vargas MD OB Faculty: James Gorman MD Anesthesia: Spinal Specimens: Right and left tubal segments Findings: Normal appearing bilateral fallopian tubes, normal appearing uterus Narrative: After arrival to the operating room, the patient was placed in supine position after a dosing of Spinal anesthesia. Two Allis clamps were used to grasp the skin and a transverse infraumbilical incision was made through the skin with a #10 scalpel. The incision was extended bluntly with digits through the subcutaneous tissue to the level of the fascia. The fascia was grasped with Allis clamps and entered into with a #10 scalpel. The incision through the fascia was extended with scalpel. The peritoneum was entered with fascial incision. The patient was airplaned to the right by the anesthesiologist. The skin incision was retracted with Army-navy retractors and a sponge stick was used to sweep the omentum out of the field. The left fallopian tube was visualized directly. The fallopian tube was grasped with Norway forceps and followed out to the distal end until the fimbria was visualized. A Edis forcep was replaced at midportion of fallopian tube. The fallopian tube was ligated and resected with Modified Bradley technique - A Edis clamp was placed on the fallopian tube and placed on gentle traction to create a loop. Two 0-plain gut sutures were used to ligate this loop and metzenbaum scissors were used to perforate the mesosalpinx bluntly. The transected ends of fallopian tube were examined to ensure the presence of fallopian lumen and good hemeostasis. The fallopian tube was replaced into the abdomen. The patient was airplaned to the left by the anesthesiologist. The right fallopian tube was visualized directly. The fallopian tube was grasped with Edis forceps and followed out to the distal end until the fimbria was visualized. A Edis forcep was placed at midportion of fallopian tube. The fallopian tube was ligated with 0-plain gut sutures times two with Modified Bradley technique - A Norway clamp was placed on the fallopian tube and placed on gentle traction to create a loop. Two 0-plain gut sutures were used to ligate this loop and metzenbaum scissors were used to perforate the mesosalpinx bluntly. After ensuring good hemostasis of the transected ends and the presence of fallopian lumens, the tubes were replaced in the abdomen. The fascia was re-approximated with running 0-vicryl sutures on a CT-1 needle. The subcutaneous tissue was re-approximated. The skin was re-approximated with running subcutaneous 3-0 Monocryl sutures on a PS-1 needle. Steri strips and a bandage were applied on the site. Condition of Patient after Surgery: Good Estimated Blood Loss: <5 cc Arabella Husain MD 08/14/2024 8:38 AM OBGYN PGY-1 IT ADMINISTRATION OFFICER Associated attestation - James Gorman MD - 08/14/2024 8:59 AM CREDIT ADMINISTRATION OFFICER I was supervising [facility] faculty present for this procedure. I was present for all bey portions of the procedure. I have attached an additional note if there were special circumstances during this procedure. [facility] [id number] 00:44:04 Problem: Falls, Risk of Goal: Absence of falls Outcome: Progressing as expected Problem: Discharge Planning - Goal: Adequate for discharge Outcome: Progressing as expected Goal: Mood stable Outcome: Progressing as expected Problem: Pain Goal: Control of pain at or below patient's documented comfort goal Outcome: Progressing as expected Goal: Reduction in pain sensation Outcome: Progressing as expected Problem: Breast-feeding - Ineffective Goal: Effective breast-feeding Outcome: Progressing as expected IT ADMINISTRATION OFFICER Kamlesh Mendenhall RNPremier Health Atrium Medical [id number] 22:26:19 Patient: Salome Azevedo Procedure Summary Date: 08/13/24 Room / Location: Anesthesia Start: 1322 Anesthesia Stop: 2114 Procedure: CENTRAL NEURAXIAL BLOCK Diagnosis: Scheduled Providers: Responsible Provider: Riddhi Chow MD Anesthesia Type: Epidural ASA Status: 2 Anesthesia Type: Epidural Last vitals BP 134/89 (08/13/242129) Temp Pulse 78 (08/13/242129) Resp SpO2 99 % (08/13/242129) There were no known notable events for this encounter. Anesthesia Post Evaluation Patient location during evaluation: bedside Patient participation: complete - patient participated Level of consciousness: awake and alert Pain management: adequate Airway patency: patent Cardiovascular status: acceptable Respiratory status: acceptable Hydration status: acceptable IT ADMINISTRATION OFFICER AN-ANESTHESIOLOGY ANESTHESIOLOGISTPremier Health Atrium Medical [id number] 20:58:59 Problem: Intrapartum process (including labor pain) Goal: Absence of or reduction of complications of labor Outcome: Progressing as expected Goal: Able to cope with pain Outcome: Progressing as expected Goal: Adequate to move to next level of care Outcome: Progressing as expected Goal: Reduction in pain sensation Outcome: Progressing as expected Problem: Falls, Risk of Goal: Absence of falls Outcome: Progressing as expected IT ADMINISTRATION OFFICER Tere Corral RNREHABIL[facility]ATION [facility] - [id number] 20:41:19 DELIVERY BY SPONTANEOUS VAGINAL DELIVERY Delivery Date: 08/13/2024 Delivery Time: 8:21 PM Review the Delivery Report for details. The patient was admitted to the Labor & Delivery unit for IOL at 39w1d. Delivery Physician: Patria Quinn MD OB Faculty: Thanh Ramirez MD Construction Framer Resident: Caryn Lyons MD Intrapartum Anesthesia/Analgesia: Epidural Mode of Delivery: Delivery of perez fetus with cephalic presentation Fetus Spontaneous vaginal delivery of head with cephalic position, occipital anterior. As the head crowned and distended the perineum, no episiotomy was performed. A blue towel was used to protect the perineum as the head crowned and delivered. The other hand was used to exert pressure on the occiput to control the delivery of the head. The perineum was pushed with a towel-draped hand as the head and mouth was delivered over the perineum. The head was allowed to rotate externally to achieve natural body posture. Examination of neck revealed no umbilical cord. The shoulder was delivered by gentle downward traction applied to head and downward traction for the delivery of anterior shoulder. This was followed by upward traction with delivery of posterior shoulder and body. A normal, male was delivered. Delayed cord clamping for 30 seconds was performed. The umbilical cord was clamped, cut and the infant was handed off the field to the circulating nurse. Placenta Placenta was delivered spontaneously while the abdominal hand lifted the uterus cephalad and other hand keeping the umbilical cord slightly taut. Laceration Laceration Repair: No laceration repair needed. Fourth Stage Fourth stage of labor was managed by uterine massage with abdominal hand and infusion 30 units of pitocin mixed with intravenous fluid at a rate of 300cc/kg/hr. EBL: 250 ml APGARs: 8 , 9 Weight: 3460 g Complications: none Patria Quinn MD 08/13/24 8:41 PM IT ADMINISTRATION OFFICER Associated attestation - Thanh Ramirez MD - 08/13/2024 11:01 PM CREDIT ADMINISTRATION OFFICER Present for delivery. OBSTETRICS & GYNECOLOGYPremier Health Atrium Medical [id number] 13:31:43 Name/ MRN / Age / Gender: Salome Azevedo, [id number] 38 year old female BMI: Estimated body mass index is 23.29 kg/m? as calculated from the following: Height as of this encounter: 1.676 m (5' 6"). Weight as of this encounter: 65.5 kg (144 lb 4.8 oz). Allergies: Patient has no known allergies. Last Vitals: BP Readings from Last 1 Encounters: 08/13/24 114/82 Pulse Readings from Last 1 Encounters: 08/13/24 63 SpO2 Readings from Last 1 Encounters: 08/13/24 98% Date of Surgery: 08/13/2024 Surgeon: * No surgeons listed * Procedure: CENTRAL NEURAXIAL BLOCK OR Location: [place] ANESTHESIA OUT OF OR - OR LOCATION Anesthesia Preop Eval (physical exam) Anesthesia Preop: Chart Review and [id number] Communication: 38 year old female at 39w1d requesting central neuraxial anesthesia PONV Risk Factors: female Anesthesia History Anesthesia History Negative (-) Hx of anesthetic complications Previous Anesthetics/Airways Cardiovascular Negative Cardiac ROS Comments: BP Readings from Last 3 Encounters: 08/13/24 : 114/82 08/06/24 : 115/76 07/31/24 : 121/73 Pulmonary Negative Pulmonary ROS Neuro/Musculoskeletal Negative Neuro/Musculosketal ROS (-) Spinal Cord injury (-) Positioning limitations GI/Hepatic Negative GI/Hepatic ROS Hematology Negative Hematology ROS Comments: HGB Date Value 08/13/2024 13.0 g/dL 12/28/2014 12.1 G/DL PLT x103(/uL) Date Value 12/28/2014 248 PLT (10*3/?L) Date Value 08/13/2024 292 Type and Screen Ordered: Yes Patient Accepts Blood Transfusion: Yes Renal Negative Renal ROS Skin Negative Skin ROS Endo/Other Negative Endo/Other ROS Comments: No results found for: "XHZJYNE0H" No results found for: "HGBA1C" Other [facility] Comments: 38 year old female at 39w1d requesting central neuraxial anesthesia Pediatric Pediatric N/A N/A Preoperative Medication Instructions Continue taking all prescribed medications except: ROBE inhibitors, ARBs, diuretics, all oral diabetes medications Anticoagulant Therapy: Defer to surgeons Insulin: Take 1/2 dose the night prior to surgery. Hold on DOS. Phentermine: [facility] anesthesiologist SGLT2 Inhibitors: "gliflozins" to be held for 3 days prior to elective surgeries GLP1 Agonosit: stop 7 days prior to surgery MAC Cases: Continue taking ROBE inhibitors and ARBs ASA Classification ASA: 2 Labs: Chemistry - CBC 08/13/2024 - - - - 8.66 13.0 292 - - - 35.6 (L) eGFR: - Date: - ANC: 6.52 Date: 08/13/2024 LFTs 07/18/2024 Coags AST: 31 AP: 154 (H) Prot: 6.4 Ca: - PT: - Date: - ALT: 30 T Ayaz: 0.7 Alb: 3.4 (L) PTT: - Date: - PO4: - Date: - INR: - Date: - Cardiac Endocrine & other pBNP: - Date: - A1C: - Date: - Trop I: - Date: - POCT A1C: - Date: - CK: - Date: - TSH: - Date: - CKMB: - Date: - FT4: - Date: - LDL: - Date: - Lact: - Date: - Procal: - Date: - Respiratory -|-|-|-|- D-dimer: - ABG Date: - Date: - Miscellaneous Type and Screen: O POSITIVE Antibody: Negative Date: 08/13/2024 POCT : Positive Date: 01/04/2024 Current Medications: No outpatient medications have been marked as taking for the 08/13/24 encounter (Hospital Encounter). Previous Surgeries: Past Surgical History: Procedure Laterality Date MINI LAPAROSCOPIC CHOLECYSECTOMY 01/31/2015 Anesthesia Physical Exam General no apparent distress and alert and oriented x 3 Neuro/Psych neurological Nonfocal Dental no notable dental hx Abdominal GI exam normal (+) abdomen soft, benign and gravid Airway Mallampati score:III TM distance:> 5 cm Neck ROM: full Mouth opening:small, normal (+) Normal facies Extremity Normal extremity Pulmonary pulmonary exam normal and bilateral clear to auscultation Other Cardiovascular cardiovascular exam normalRhythm:Regular Rate: Normal Anesthesia Plan ASA Status: 2 Plan discussed during pre-op evaluation: General, Epidural, Spinal and CSE Anesthetic plan on DOS: Epidural Anesthesia plan discussed with: patient or patient support representative Post-Operative Analgesia: routine analgesia & antiemetics Recovery Plan: PACU and LDR Additional comments: [facility] AN-ANESTHESIOLOGY ANESTHESIOLOGISTPremier Health Atrium Medical [id number] 10:10:26 Problem: Intrapartum process (including labor pain) Goal: Absence of or reduction of complications of labor Outcome: Progressing as expected Goal: Able to cope with pain Outcome: Progressing as expected Goal: Adequate to move to next level of care Outcome: Progressing as expected Goal: Reduction in pain sensation Outcome: Progressing as expected Problem: Falls, Risk of Goal: Absence of falls Outcome: Progressing as expected [facility]2024-09-10 07:56:30 Patient informed of results and new orders, verbalized understanding. [facility]2024-09-09 16:46:23 Please notify the patient that yeast was identified on her pap. Meds have been sent to her pharmacy on file, please advise the patient to complete the meds as prescribed, and practice good perineal hygiene. ANEL Colon 04/23/2024 4:46 PM [facility]
--- NOTE | 2024-09-25 18:30 | RAD REPORT ---
EXAMINATION: XR Ankle Left 3 View CLINICAL INDICATION: Female, 39 years old. [facility] MAIN PAIN Bed: TECHNIQUE: 3 view radiographs of the left ankle were obtained. COMPARISON: No prior exam. FINDINGS: No bone or joint abnormality seen. Diffuse soft tissue swelling about the ankle. IMPRESSION: No acute osseous abnormalities. Diffuse soft tissue swelling about the ankle..
--- NOTE | 2024-09-25 19:13 | RAD REPORT ---
EXAMINATION: US LEFT LOWER EXTREMITY VENOUS DOPPLER CLINICAL INDICATION: [facility] MAIN left leg Pain;Swelling Bed: Y TECHNIQUE: Complete bilateral duplex sonography of the LEFT lower extremity veins was performed. The examination included compression for vein patency, color Doppler imaging and flow augmentation in response to distal compression of the distal external iliac, common femoral, femoral, popliteal, tibi al, and great and small saphenous veins. COMPARISON: No prior exam. FINDINGS: Duplex sonography testing of the veins of the LEFT lower extremity was performed. Color flow imaging shows all veins to be compressible with [id number] color filling. Pulsatile and phasic flow is present within all lower extremity deep and superficial veins examined. IMPRESSION: No evidence of deep venous thrombosis.
--- NOTE | 2024-09-25 19:47 | ER ---
Nurse's Notes [facility] Name: Leslie Melgoza Age: 39 yrs Sex: Female : 1985 Arrival Date: 09/25/2024 Time: 17:14 Bed 7 Private MD: Diagnosis: left ankle swelling Presentation: 09/25 17:29 Chief complaint: Patient states: left ankle became swollen after having her baby on me1 August 13 and that the swelling was almost gone and then it became swollen again about 2 weeks ago. Coronavirus screen: Vaccine status: Patient reports being unvaccinated. Ebola Screen: No symptoms or risks identified at this time. Initial Sepsis Screen: Does the patient meet any 2 criteria? No. Patient's initial sepsis screen is negative. Does the patient have a suspected source of infection? No. Patient's initial sepsis screen is negative. Risk Assessment: Do you want to hurt yourself or someone else? Patient reports no desire to harm self or others. Onset of symptoms is unknown. 17:29 Method Of Arrival: Ambulatory [facility] [place] 17:29 Acuity: WESLEY 4 me1 PRODUCT DEVELOPMENT SPECIALIST: 17:31 LMP N/A - Irregular menses, Not me1 Historical: - Allergies: 17:31 No Known Allergies; me1 - Home Meds: 17:31 None [Active]; me1 - PMHx: 17:31 None; me1 - PSHx: 17:31 Ligation of fallopian tube; Appendectomy; me1 - Immunization history:: Adult Immunizations unknown. - Infectious Disease History:: Denies. - Social history:: Smoking status: Patient denies any tobacco usage or history of. Screenin:15 [facility] ED Fall Risk Assessment (Adult) History of falling in the last 3 months, ko1 including since admission No falls in past 3 months (0 pts) Confusion or Disorientation No (0 pts) Intoxicated or Sedated No (0 pts) Impaired Gait No (0 pts) Mobility Assist Device Used No (0 pt) Altered Elimination No (0 pt) Score/Fall Risk Level 0 - 2 = Low Risk Oriented to surroundings, Maintained a safe environment, Educated pt \T\ family on fall prevention, incl call for assistance when getting out of bed, Assessed \T\ reinforced patient's understanding of fall precautions, Hourly rounding (assess needs \T\ fall precautionary measures) done. Abuse screen: Denies threats or abuse. Denies injuries from another. Nutritional screening: No deficits noted. Tuberculosis screening: No symptoms or risk factors identified. Assessment: 18:15 General: Appears in no apparent distress. Behavior is calm, cooperative, appropriate ko1 for age. Pain: Complains of pain in left ankle. Neuro: No deficits noted. Cardiovascular: No deficits noted. Respiratory: No deficits noted. GI: No deficits noted. No signs and/or symptoms were reported involving the gastrointestinal system. : No deficits noted. No signs and/or symptoms were reported regarding the genitourinary system. EENT: No deficits noted. No signs and/or symptoms were reported regarding the EENT system. Derm: No deficits noted. No signs and/or symptoms reported regarding the dermatologic system. Musculoskeletal: No deficits noted. No signs and/or symptoms reported regarding the musculoskeletal system. 19:25 General: Appears in no apparent distress. comfortable, Behavior is calm, cooperative, vc1 appropriate for age. Pain: Complains of pain in anterior aspect of left ankle and dorsum of left foot Pain does not radiate. Neuro: Level of Consciousness is awake, alert, obeys commands, Oriented to person, place, time, situation, Appropriate for age. Cardiovascular: Capillary refill < 3 seconds Patient's skin is warm and dry. Cardiovascular: Heart tones S1 S2 present. Respiratory: Airway is patent Respiratory effort is even, unlabored, Respiratory pattern is regular, symmetrical, Breath sounds are clear bilaterally. GI: No deficits noted. No signs and/or symptoms were reported involving the gastrointestinal system. : No deficits noted. No signs and/or symptoms were reported regarding the genitourinary system. EENT: No deficits noted. No signs and/or symptoms were reported regarding the EENT system. Derm: Skin is intact, is healthy with good turgor, Skin is dry, Skin is normal, Skin temperature is cool. Musculoskeletal: Circulation, motion, and sensation intact. Range of motion: intact in all extremities, Reports pain in left foot. Vital Signs: 17:29 BP 160 / 75; Pulse 68; Resp 16; Temp 97.8; Pulse Ox 100% ; Weight 60.33 kg; Height 5 me1 ft. 3 in. ; Pain 5/10; 20:12 BP 125 / 88; Pulse 61; Resp 17 S; Pulse Ox 100% on R/A; lg3 17:29 Body Mass Index 23.56 (60.33 kg, 160.02 cm) me1 17:29 Pain Scale: Adult me1 ED Course: 17:16 Patient arrived in ED. im 17:16 Delilah Rodgers FNP-C is PHCP. kb 17:16 Delta Coronado MD is Attending Physician. kb 17:31 Triage completed. me1 17:31 Arm band placed on Patient placed in an exam room. me1 18:08 Ankle Left 3 View XRAY In Process Unspecified. EDMS 18:15 Lucy Dee, RN is Primary Nurse. ko1 18:15 Patient has correct armband on for positive identification. Bed in low position. Call ko1 light in reach. Side rails up X 1. Provided Education on: tests. Pulse ox on. NIBP on. Door closed. Noise minimized. Lights dimmed. 18:15 No provider procedures requiring assistance completed. Patient did not have IV access ko1 during this emergency room visit. 18:38 US Extremity Venous Unilateral Ltd In Process Unspecified. EDMS Administered Medications: No medications were administered Medication: 18:15 VIS not applicable for this client. ko1 Outcome: 19:46 Discharge ordered by . kb 20:14 Discharged to home ambulatory, with family, lg3 20:14 Condition: stable 20:14 Discharge instructions given to patient, Instructed on discharge instructions, follow up and referral plans. Demonstrated understanding of instructions, follow-up care, 20:14 Patient left the ED. lg3 Signatures: Dispatcher [employer] EDMS Delilah Rodgers FNP-C POLICY MANAGER-Kerry Holden RN RN lg3 Vy Tinsley RN RN vc1 Lucy Dee, RN RN ko1 Katherine Lopez Glendy Springer, RN RN me1 Corrections: (The following items were deleted from the chart) 17:32 17:31 PSHx: Appendectomy; me1 me1
--- NOTE | 2024-09-25 19:47 | EDPHYS ---
Physician Documentation [facility] Name: Leslie Melgoza Age: 39 yrs Sex: Female : 1985 Arrival Date: 09/25/2024 Time: 17:14 Bed 7 Private MD: ED Physician Delta Coronado HPI: 09/25 19:58 This 39 yrs old Female presents to ER via Ambulatory with complaints of Ankle kb Swelling - pain left. 19:58 Pt is a 39 year old female who presents for swelling to left ankle that started 2 weeks kb ago. Denies injury, trauma, fever, pain. States she had this when she delivered a baby in July and it went away on its own, but then started again 2 weeks ago. . 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 - Infectious Disease History:: Denies. - Social history:: Smoking status: Patient denies any tobacco usage or history of. ROS: 19:56 Constitutional: As per HPI kb Exam: 19:56 Constitutional: This is a well developed, well nourished patient who is awake, alert, kb and in no acute distress. Head/Face: Normocephalic, atraumatic. ENT: Moist Mucous membranes Cardiovascular: Regular rate Respiratory: Respirations even and unlabored. No increased work of breathing. Talking in full sentences Skin: Warm, dry with normal turgor. Normal color. Neuro: Awake and alert, GCS 15, oriented to person, place, time, and situation. 19:56 Musculoskeletal/extremity: Extremities: grossly normal except: noted in the anterior aspect of left ankle: swelling, ROM: intact in all extremities, Circulation is intact in all extremities. Sensation intact. Vital Signs: 17:29 BP 160 / 75; Pulse 68; Resp 16; Temp 97.8; Pulse Ox 100% ; Weight 60.33 kg; Height 5 me1 ft. 3 in. ; Pain 5/10; 20:12 BP 125 / 88; Pulse 61; Resp 17 S; Pulse Ox 100% on R/A; lg3 17:29 Body Mass Index 23.56 (60.33 kg, 160.02 cm) me1 17:29 Pain Scale: Adult me1 MDM: 17:17 Medical Screening Exam initiated kb 19:56 Differential diagnosis: fracture, sprain, cellulitis, dvt. Data reviewed: vital signs, kb nurses notes. I considered the following discharge prescriptions or medication management in the emergency department I discussed and recommended Over The Counter medications, Antibiotics: At this time antibiotics are not recommended. Counseling: I had a detailed discussion with the patient and/or guardian regarding the historical points, exam findings, and any diagnostic results supporting the discharge/admit diagnosis, radiology results, the need for outpatient follow up, a family practitioner, to return to the emergency department if symptoms worsen or persist or if there are any questions or concerns that arise at home. ED course: No erythema, warmth or reported fever to indicate infection. Pt has full ROM on ankle and ambulatory. . 09/25 17:31 Order name: Ankle Left 3 View XRAY; Complete Time: 18:32 kb 09/25 17:31 Order name: US Extremity Venous Unilateral Ltd; Complete Time: 19:22 kb Administered Medications: No medications were administered Disposition: 20:17 Co-signature as Attending Physician, Delta Coronado MD I reviewed the patient's care rn provided by the Advanced Practice Provider and agree with the diagnosis and treatment plan. Disposition Summary: 09/25/24 19:46 Discharge Ordered Notes: Location: Home kb Condition: Stable kb Diagnosis - left ankle swelling kb Followup: kb - With: Emergency Department - When: As needed - Reason: Worsening of condition Followup: kb - With: Private Physician - When: 2 - 3 days - Reason: Recheck today's complaints, Continuance of care, Re-evaluation by your physician Discharge Instructions: - Discharge Summary Sheet kb - Peripheral Edema kb Forms: - Medication Reconciliation Form kb - Antibiotic Education kb - Prescription Opioid Use kb - Patient Portal Instructions kb - Leadership Thank You Letter kb Signatures: Dispatcher [employer] Delilah Silva, VESNAC JELENA-Delta Stoll MD MD rn Eddleman, Michelle, RN RN me1 Corrections: (The following items were deleted from the chart) 17:32 17:31 PSHx: Appendectomy; me1 me1
[2024-09-26 00:22] VITALS: BP 125/88; O2SAT 100
== END 2024-09-25 20:14 | disposition home or self-care (01) ==
LOC: ER 17:14
DX: R22.42 Localized swelling, mass and lump, left lower limb (principal); M25.572 Pain in left ankle and joints of left foot
CPT/HCPCS: 93971